=== PATIENT | female | born 1950 | race Caucasian/White ===

== ENCOUNTER 2022-08-03 12:09 | Outpatient (REF) | payer MEDICARE, OTHER, SELFPAY ==
[2022-08-03 13:51] LABS: MANUAL DIFF FLAG NO
[2022-08-03 14:13] LABS: Basophils Percent Auto 0.5 % (0-2); Eosinophils Absolute Auto 0.3 X10*3/uL (0.0-0.4); Eosinophils Percent Auto 5.1 % (0-4); Hematocrit 41.2 % (37.0-47.0); Hemoglobin 13.8 g/dl (12.0-16.0); Imm Gran Abs Auto 0.02 X10*3/uL (0.00-0.03); Imm Gran Pct Auto 0.3 % (0.0-0.4); Lymphocytes Absolute Auto 1.9 X10*3/uL (1.2-4.9); Lymphocytes Percent Auto 28.9 % (20-40); Mean Corpuscular HGB Conc 33.5 g/dl (31.0-35.0); Mean Corpuscular Hemoglobin 30.3 pg (27.0-33.0); Mean Corpuscular Volume 90.5 fL (80.0-98.0); Mean Platelet Volume 10.7 fL (9.4-12.3); Monocytes Absolute Auto 0.9 X10*3/uL (0.1-1.2); Monocytes Percent Auto 13.4 % (2-11); Neutrophils Absolute Auto 3.3 x10*3/uL (2.0-8.3); Neutrophils Percent Auto 51.8 % (45-73); Platelet Count 239 X10*3/uL (160-400); Red Blood Count 4.55 X10*6/uL (4.20-5.50); Red Cell Distribution Width 12.9 % (11.0-16.0); White Blood Count 6.4 X10*3/uL (4.8-10.8)
[2022-08-03 14:42] LABS: Alanine Aminotransferase 12 U/L (0-31); Albumin Level 4.1 g/dL (3.5-5.0); Alkaline Phosphatase 63 U/L (39-117); Anion Gap 15 (12-20); Aspartate Amino Transferase 22 U/L (5-31); Bilirubin Total 0.6 mg/dL (0.0-1.0); Blood Urea Nitrogen 11 mg/dL (9-16); Calcium 9.4 mg/dL (8.4-10.2); Carbon Dioxide 31 mmol/L (22-29); Chloride 97 mmol/L (96-108); Cholesterol 195 mg/dL; Estimated Glomerular Filt Rate > 60; Glucose Random 92 mg/dL (60-115); HDL Cholesterol 46 mg/dL; LDL Cholesterol Calculated 128 mg/dl; Potassium 3.4 mmol/L (3.3-5.1); Sodium 140 mmol/L (135-145); Total Protein 6.7 g/dL (6.5-8.0); Triglycerides 107 mg/dL
== END 2022-08-03 12:10 | disposition home or self-care (01) ==
LOC: HO.MANLDS 12:09
PROVIDERS: Visit Provider Physician Assistant
DX: I10 Essential (primary) hypertension (principal)
CPT/HCPCS: 36415; 80053; 80061; 85025

== ENCOUNTER 2025-08-28 14:37 | Outpatient (REF) | payer MEDICARE, OTHER, SELFPAY ==
--- OUTSIDE RECORDS SUMMARY | 2022-05-28 15:03 | XMS_ITS | Encounter Summary ---
Author Organization [facility] Address [address] [place] [address] Phone Care Team Providers Care Author'S Agent Name Role Phone Hector Lan DO Unavailable Orville Majano MD Unavailable [email or web address] Hector Lan DO Primary Care Provider [phone] Encounter Details Date Type Department Care Team (Late st Contact Info) Description 05/28/2022 4:03 PM EDT Hospital Encounter [facility] [address] [place] [address] Katerin Moore FNP [address] [place] [address] [email or web address] Social History Tobacco Use Types Packs/Day Years Used Date Smoking Tobacco: Every Day Cigarettes 1 60.9 Started: 1964 Smokeless Tobacco: Never Comments:1 pack per day (10/11 07/04) Alcohol Use Standard Drinks/Week Comments No 0 (1 standard drink = 0.6 oz pur e alcohol) Education Answer Date Recorded Are you interested in more education? Not on madelaine e 02/04/2023 Are you concerned about learning? Not on file 02/04/2023 No 02/04/2023 No 02/04/2023 Digital Access Answer Date Recorded No 03/07/2023 No 03/07/2023 Reliable internet access at home? Not on file 03/07/2023 Device with a working camera? Not on file Intimate Partner Violence Answer Date R ecorded Are you denied basic needs s uch as food, clothing, or medical care? No 11/07/2024 In the past 12 months have y ou been in a relationship with a person who hurts, threatens, or tries to control you? No 11/07/2024 Are you denied basic needs s uch as food, clothing, or medical care? No 11/07/2024 In the past 12 months have y ou been in a relationship with a person who hurts, threatens, or tries to control you? No 11/07/2024 Comments No Sex and Gender Information Value Date Recorded Sex Assigned at Not on file Legal Sex Female 10:02 PM EDT Gender Identity Not on file Sexual Orientation Not on file documented as of this encounter Functional Status * Calculated C-SSRS Risk Score (Lifetime/Recent) Answer Date of Assessment Author No Risk Indicated 09/20/2024 11:48 AM Nohelia Jacobsen RN * [place] Suicide Severity Rating Scale (Screener/Recent Self-Report) Question Answer Date of Assessment Author 1. Wish to be (Past 1 Month) No 024 11:48 AM Nohelia Jacobsen RN 2. Non-Specific Active Suici rama Thoughts (Past 1 Month) No 09/20/2024 11:48 AM Lola Jacobsen RN 6. Suicidal Behavior (Lifetime) No 11:48 AM Nohelia Jacobsen RN documented as of this encounter Plan of Treatment Upcoming Encounters Date Type Department Care Team (Late st Contact Info) Description 03/21/2025 Procedure Pass [facility], Ct Scan - [facility] [address] [place] [address] 10/23/2025 9:30 AM EST Office Visit [facility] [address] [place] [address] Mary Lou Pires, ACTUARY CLERK [address] [address] [email or web address] 10/29/2025 10:30 AM EST Appointment [facility], Ct Scan - [address] [address] Fredy Broosk MD [address] [place] [address] 11/05/2025 10:00 AM EST Office Visit [facility] [address] [place] [address] Fredy Brooks MD [address] [place] [address] [email or web address] documented as of this encounter Procedures Procedure Name Priority Date/Time Associated Diagnosis Comments XR HAND 3 OR MORE VIEWS (LEFT) Urgent/patient waiting 05/28/2022 4:10 PM EDT Fall, initial encounter documented in this encounter Results * XR HAND 3 OR MORE VIEWS (LEFT) (05/28/2022 4:10 PM EDT) Anatomical Region Laterality Modality Hand Left Computed Radiogr aphy 05/28/2022 4:22 PM EDT Impressions 05/28/2022 4:26 PM EDT There are mildly displaced fractures of fourth and fifth metacarpal bases with likely intra articular extension. The carpal alignment is maintained. The distal radius and ulna are intact. Narrative 05/28/2022 4:26 PM EDT XR HAND 3 OR MORE VIEWS (LEFT) COMPARISON: None Procedure Note Pamela Conn MD - 05/28/2022 XR HAND 3 OR MORE VIEWS (LEFT) COMPARISON: None IMPRESSION: There are mildly displaced fractures of fourth and fifth metacarpal baseswith likely intra articular extension. The carpal alignment is maintained.The distal radius and ulna are intact. Katerin Moore RN CRITICAL CARE IMG XR UPPER EXTREMITY Lenore l Result documented in this encounter Visit Diagnoses Not on filedocumented in this encounter Care Teams Author'S Agent Relationship Specialty Start Date End Date Hector Lan DO PCP - General Internal Medicine 09/07/17 Hector Lan DO Historical LMR Provider 07/25/17 Orville Majano MD [email or web address] Historical LMR Provider 07/25/17 documented as of this encounter Additional Source Comments The information contained in this document represents components of the legal health record. It is not the complete legal health record.[facility]
--- OUTSIDE RECORDS SUMMARY | 2023-02-21 10:35 | XMS_ITS | Encounter Summary ---
Author Organization [facility] Address [address] [place] [address] Phone Care Team Providers Care After School Program Director Name Role Phone Hector Lan DO Unavailable Orville Majano MD Unavailable [email or web address] Hector Lan DO Primary Care Provider [phone] Encounter Details Date Type Department Care Team (Late st Contact Info) Description 02/21/2023 11:35 AM EDT Hospital Encounter [facility] [address] [place] [address] Morelia Le CNP [address] [place] [address] [email or web address] Social History Tobacco Use Types Packs/Day Years [...] 09/20/2024 11:48 AM Nohelia Jacobsen RN * [place] Suicide Severity Rating Scale (Screener/Recent Self-Report) Question [...] st Contact Info) Description 03/21/2025 Procedure Pass [facility], Ct Scan - [facility] [address] [place] [address] 10/23/2025 9:30 AM EST Office Visit [facility] [address] [place] [address] Mary Lou Pires, PROTEIN PURIFICATION SCIENTIST [address] [place] [address] [email or web address] 10/29/2025 10:30 AM EST Appointment [facility], Ct Scan - [facility] [address] [place] [address] Fredy Brooks MD [address] [place] [address] 11/05/2025 10:00 AM EST Office Visit [facility] [address] [place] [address] Fredy Brooks MD [address] [place] [address] documented as of this encounter Procedures Procedure Name Priority Date/Time Associated Diagnosis Comments XR CHEST PA AND LATERAL 2 VIEWS Urgent/patient waiting 02/21/2023 12:03 PM EDT Shortness of breath documented in this encounter Results * XR CHEST PA AND LATERAL 2 VIEWS (02/21/2023 12:03 PM EDT) Anatomical Region Laterality Modality Chest Computed Radiogr aphy 02/21/2023 12:0 6 PM EDT Impressions 02/21/2023 12:08 PM EDT No acute abnormality. Narrative 02/21/2023 12:08 PM EDT XR CHEST PA AND LATERAL 2 VIEWS Reason for exam (per EHR order): Dyspnea (Shortness of Breath); rales RLL, h/o COPD- minimal peripheral edema TECHNIQUE: Frontal and lateral radiographs of the chest. COMPARISON: February 2020. FINDINGS: Support Devices / Implants / Lines and Tubes: None. Lungs and Pleura: No focal consolidation, pulmonary edema, pleural effusion or pneumothorax. Cardiomediastinal Silhouette: Normal. Miscellaneous Findings: Degenerative changes of the thoracic spine. Procedure Note Bogdan Eason MBBS - 02/21/2023 XR CHEST PA AND LATERAL 2 VIEWS Reason for exam (per EHR order): Dyspnea (Shortness of Breath); rales RLL,h/o COPD- minimal peripheral edema TECHNIQUE: Frontal and lateral radiographs of the chest. COMPARISON: February 2020. FINDINGS: Support Devices / Implants / Lines and Tubes: None. Lungs and Pleura: No focal consolidation, pulmonary edema, pleuraleffusion or pneumothorax. Cardiomediastinal Silhouette: Normal. Miscellaneous Findings: Degenerative changes of the thoracic spine. IMPRESSION: No acute abnormality. Morelia Le PROTEIN PURIFICATION SCIENTIST IMG XR CHEST Final Resul t documented in this encounter Visit Diagnoses Not on filedocumented in this encounter Care Teams After School Program Director Relationship Specialty Start Date End Date Hector Lan DO PCP - General Internal Medicine 09/07/17 Hector Lan DO Historical LMR Provider 07/25/17 Orville Majano MD [email or web address] Historical LMR Provider 07/25/17 documented as of this encounter Additional Source Comments The information contained in this document represents components of the legal health record. It is not the complete legal health record.[facility]
[2025-08-28 18:09] LABS: MANUAL DIFF FLAG NO
[2025-08-28 18:20] LABS: Hematocrit 43.6 % (37.0-47.0); Hemoglobin 14.2 g/dl (12.0-16.0); Imm Gran Abs Auto 0.21 X10*3/uL (0.00-0.03); Imm Gran Pct Auto 1.4 % (0.0-0.4); Lymphocytes Absolute Auto 1.1 X10*3/uL (1.2-4.9); Mean Corpuscular HGB Conc 32.6 g/dl (31.0-35.0); Mean Corpuscular Hemoglobin 30.6 pg (27.0-33.0); Mean Corpuscular Volume 94.0 fL (80.0-98.0); NRBC Abs Auto 0.000 X10*3/uL (0.0-0.012); NRBC Pct Auto 0.0 /100WBC (0.0-0.2); Platelet Count 240 X10*3/uL (160-400); Red Blood Count 4.64 X10*6/uL (4.20-5.50); White Blood Count 14.8 X10*3/uL (4.8-10.8)
--- OUTSIDE RECORDS SUMMARY | 2025-08-29 03:04 | XMS_ITS | Encounter Summary ---
Author Organization [facility] Address [facility] [address] [place] [address] Phone Care Team Providers Care Marketing Recruiter Name Role Phone Hector Lan DO Unavailable Orville Majano MD Unavailable [email or web address] Mary Carmen Haji MOBILE HOME SET UP PERSON Unavailable [phone] Ivet Boothe MOBILE HOME SET UP PERSON Unavailable [phone] Karen Mendoza MOBILE HOME SET UP PERSON Unavailable [phone] Hector Lan DO Primary Care Provider [phone] Encounter Details Date Type Department Care Team (Late st Contact Info) Description 10/09/2019 Procedure Pass [address] [address] Social History Tobacco Use Types Packs/Day Years Used Date Smoking Tobacco: Every Day Cigarettes 0.3 45 Smokeless Tobacco: Never Comments:About 1/3 pack per day Alcohol Use Standard Drinks/Week Comments No 0 (1 standard drink = 0.6 oz pur e alcohol) Comments No Sex and Gender Information Value Date Recorded Sex Assigned at Not on file Legal Sex Female 10:02 PM EDT Gender Identity Not on file Sexual Orientation Not on file documented as of this encounter Plan of Treatment Upcoming Encounters Date Type Department Care Team (Late st Contact Info) Description 03/21/2025 Procedure Pass [facility], Ct Scan - [address] [address] 10/23/2025 9:30 AM EST Office Visit [facility] [address] [place] [address] Mary Lou Pires, HOOK UP [address] [address] [email or web address] 10/29/2025 10:30 AM EST Appointment [facility], Ct Scan - [address] [address] Fredy Brooks MD [address] [place] [address] 11/05/2025 10:00 AM EST Office Visit [facility] [address] [place] [address] Fredy Brooks MD [address] [place] [phone] documented as of this encounter Visit Diagnoses Not on filedocumented in this encounter Care Teams Marketing Recruiter Relationship Specialty Start Date End Date Hector Lan DO PCP - General Internal Medicine 09/07/17 Hector Lan DO Historical LMR Provider 07/25/17 Orville Majano MD [email or web address] Historical LMR Provider 07/25/17 Mary Carmen Haji, MOBILE HOME SET UP PERSON [address] [place] [address] [place] [address] [email or web address] Historical LMR Provider 07/25/17 2 Ivet Boothe NP [address] [place] [address] [email or web address] Historical LMR Provider 07/25/17 2 Karen Mendoza NP [address] [place] [address] Historical LMR Provider 07/25/17 2 documented as of this encounter Additional Source Comments The information contained in this document represents components of the legal health record. It is not the complete legal health record.[facility]
--- OUTSIDE RECORDS SUMMARY | 2025-08-29 03:04 | XMS_ITS | Continuity of Care Document ---
Author Organization [facility], [facility] Address [address] [place] [address] Assessment No assessment recorded. Plan of Treatment Reminders Order Date Submit Date Provider Last Modified By Organization Details Last Modified Time Details Appointments FOLLOW UP 15 2024 11:15A M LEANDRA ELLISON Not available Not available Not available Lab CBC w/ auto diff 2024 [facility], [address] [place] [address], [id number], 08/28/2025 14:31:52 Referral None recorded. Procedures None recorded. Surgeries None recorded. Imaging None recorded. Medication Orders prednison e 20 mg tablet 2024 [id number], [address] [place], [place], [phone], 08/28/2025 14:20:45 prednison e 10 mg tablet 2024 [facility][id number], [address], [place], [id number], 08/28/2025 14:20:49 amoxicill in 875 mg-potass ium clavulana te 125 mg tablet 2024 [facility] #[id number], [address] [place], [address], 08/28/2025 14:15:35 Patient TargetsNo targets recorded. Patient InstructionsNo instructions recorded. Reason for Referral None Reported. Results Created Date Observation Date Name Description Value Unit Range Abnormal Flag Note LastModifiedBy Organization Detail LastModifiedTime Result Notes None recorded. 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 Not Available [facility] 3 09:29:37 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 Not Available [facility] 3 09:29:37 Gastroes ophageal reflux disease 072625493 Active 2017 Not Available [facility] 3 09:29:37 [facility] hyperten dipika 73526644 Active 2017 Not Available [facility] 3 09:29:37 Chronic obstruct minerva pulmonar y disease 77363840 Active 2017 Not Available [facility] 3 09:29:37 Rupture of rotator cuff of right shoulder 39205116627 301267 Active 2017 Not Available [facility] 3 09:29:36 Generali zed anxiety disorder 20320193 Active 2017 Not Available [facility] 3 09:29:37 Insomnia 412687545 Active 2017 Not Available [facility] 3 09:29:37 Tobacco dependen ce syndrome 14616658 Active 2020 Not Available [facility] 3 09:29:37 Coronary atherosc lerosis 802354483 Active 2020 Not Available [facility] 3 09:29:37 Angular cheiliti s 995139627 Active 2021 Not Available [facility] 3 09:29:37 Edema of lower extremit y 993931930 Active 2021 Not Available [facility] 3 09:29:36 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 3 09:29:37 Candidia sis of mouth 99687103 Active 2022 LEANDRA ELLISON [address] [place], [address], [facility] 5 15:03:38 Infectio n of tooth 824163766 Active 2022 Not Available [facility] 3 09:29:37 Pneumoni a 886230430 Active 2022 Not Available [facility] 3 09:29:37 Pain in bilatera l feet 86720524412 228605 Active 2023 LEANDRA ELLISON [address] [place], [address], [facility] 4 11:58:11 Acute bronchit is 45157237 Active 2023 LEANDRA ELLISON [address] [place], [address], [facility] 5 16:29:24 Fever 191284610 Active 2023 LEANDRA ELLISON [address] [place], [address], [facility] 4 11:10:36 Wheezing 38662444 Active 2023 LEANDRA ELLISON [address] [place], [address], [facility] 4 11:10:45 Atypical chest pain 754154357 Active 2023 LEANDRA ELLISON [address] [place], [address], [facility] 4 15:02:57 COVID-19 492289356 Active 2023 LEANDRA ELLISON [address] [place], [address], [facility] 4 11:24:13 Migraine 47115144 Active 2024 LEANDRA ELLISON [address] [place], [address], [facility] 5 12:34:47 Mixed simple and mucopuru lent chronic bronchit is 896800669 Active 2024 LEANDRA ELLISON [address] [place], [address], [facility] 5 11:25:14 Acute infectiv e bronchit is 778662690 Active 2024 LEANDRA ELLISON [address] [place], [address], [facility] 5 16:48:05 Muscle spasm of cervical muscle of neck 96292774163 4 Active 2024 LEANDRA ELLISON [address] [place] [address], [address], [facility] 5 16:33:43 Problem Notes None recorded. Procedures Surgical History Date Name Laterality Status Provider Name and Address Organization Details Recorded Time 10/04/19 50 Most Recent Mammogram completed [facility] 04/09/2019 12:06:55 Total Hysterectomy completed [facility] 04/09/2019 12:09:04 Appendectomy completed [facility] 04/09/2019 12:09:27 Imaging Results None recorded. Procedure Notes None recorded. Medical Equipment None Reported. Allergies Allergen ID Allergen Name Allergen Category Reaction Reaction Severity Criticality Documentation Date Start Date Code Code System Note Provider Name and Address Organization Details Recorded Time 7775 Levaquin medicatio n other Not available Not available 08/15/2018 02871 2 RxNorm possi ble tendi nopat hy, avoid if possi ble January Dale, [facility] [address] [place], [address], [facility] 8 16:02:56 2496 Medrol medicatio n edema Not available Not available 08/15/2018 2 RxNorm quest ionab le corre latio n, avoid if possi ble Radha Dale, [facility] [address] [place], [address], [facility] 8 16:02:48 9791 albuterol medicatio n Not available Not available low 08/28/20252024 435 RxNorm Not Available [address] [employer] - prod 5 03:44:09 9792 varenicli ne Not available Not available Not available Not available 08/28/20252023 84258 2 RxNorm night justin Not Available [address] [employer] - prod 5 03:44:[address] medicatio n Not available Not available Not available 08/28/20252024 35149 36 RxNorm Not Available [address] [employer] - prod 5 03:44:09 9794 levofloxa maik medicatio n other Not available Not available 08/28/20252024 57262 RxNorm Other react ion(s ): Other Levaq uin Not Available [address] [employer] - prod 5 03:44:09 9795 methylpre dnisolone medicatio n other Not available Not available 08/28/20252024 6902 RxNorm Other react ion(s ): Edema Medro l Not Available [address] [employer] - prod 5 03:44:09 Medications Name Sig Start Date Stop Date Status Note LastModified by Organization Details LastModified Time amoxicill in 500 mg capsule TAKE 1 CAPSULE BY MOUTH EVERY 8 HOURS FOR 7 DAYS 08/03 completed Not Available Not Available Not Available furosemid e 40 mg tablet TAKE 1 TABLET BY MOUTH EVERY DAY 04/01 completed Not Available Not Available Not Available clotrimaz ole 10 mg diamond 08/01 completed Not Available Not Available Not Available nystatin 100,000 unit/mL oral suspensio n SHAKE LIQUID AND TAKE 5 ML BY MOUTH FOUR TIMES DAILY FOR 10 DAYS DIRECTED active Not Available Not Available No t Available prednison e 10 mg tablet TAKE 1 TABLETS BY MOUTH EVERY DAY FOR 20 DAYS DIRECTED 2024 active Not Available Not Available Not Avai lable clindamyc in HCl 300 mg capsule TAKE 1 CAPSULE BY MOUTH EVERY 6 HOURS FOR 7 DAYS 08/03 completed Not Available Not Available Not Available citalopra m 40 mg tablet TAKE 1 TABLET BY MOUTH EVERY DAY active Not Available Not Available No t Available azithromy maik 250 mg tablet TAKE 2 TABLETS (500 MG) BY ORAL ROUTE ONCE DAILY FOR 1 DAY THEN 1 TABLET (250 MG) BY ORAL ROUTE ONCE DAILY FOR 4 DAYS 08/03 completed Not Available Not Available Not Available levalbute rol 0.63 mg/3 mL solution for nebulizat ion TAKE 3 ML BY NEBULIZA TION 2 TIMES A DAY WITH HYPERSAL NEBS active Not Available Not Available No t Available fluconazo le 150 mg tablet TAKE 1 TABLET BY MOUTH EVERY DAY DIRECTED FOR 7 DAYS. 08/03 completed Not Available Not Available Not Available benzonata te 200 mg capsule TAKE 1 CAPSULE BY MOUTH THREE TIMES DAILY FOR 7 DAYS NEEDED FOR COUGH 08/03 completed Not Available Not Available Not Available hydrochlo rothiazid e 50 mg tablet TAKE 1 TABLET BY MOUTH EVERY DAY active Not Available Not Available No t Available prednison e 20 mg tablet TAKE 1 TABLET BY MOUTH BID FOR 14 DAYSTAKE 1 TABLET BY MOUTH PO QD 14 DAYS 2024 active Not Available Not Available Not Avai lable alendrona te 70 mg tablet TAKE 1 TABLET BY MOUTH ONCE WEEKLY ON AN EMPTY STOMACH WITH A FULL GLASS OF WATER. REMAIN UPRIGHT AND NOTHING BY MOUTH FOR 30 MINUTES AFTER active Not Available Not Available No t Available prednison e 5 mg tablet TAKE 1 TABLET BY MOUTH EVERY DAY FOR 20 DAYS active Not Available Not Available No t Available hydrocodo ne 10 mg-acetam inophen 325 mg tablet TAKE 1 TABLET BY MOUTH FOUR TIMES DAILY NEEDED FOR PAIN 03/05 completed Not Available Not Available Not Available bupropion HCl SR 100 mg tablet,12 hr sustained -release active Not Available Not Available Not Available amoxicill in 500 mg tablet TAKE 4 TABS BY MOUTH 1HR PRIOR TO INJECTIO N active Not Available Not Available No t Available terbinafi ne HCl 250 mg tablet Take 1 tablet every day by oral route for 28 days. 09/12 completed Not Available Not Available Not Available amoxicill in 875 mg tablet TAKE 1 TABLET BY MOUTH EVERY 12 HOURS FOR 7 DAYS 03/05 completed Not Available Not Available Not Available lorazepam 0.5 mg tablet TAKE 1 TABLET BY MOUTH EVERY DAY AT BEDTIME 07/12 completed Not Available Not Available Not Available furosemid e 80 mg tablet TAKE 1 TABLET BY MOUTH EVERY DAY 12/30 completed Not Available Not Available Not Available amitripty line 10 mg tablet TAKE 1 TABLET BY MOUTH EVERY DAY DIRECTED active Not Available Not Available No t Available doxycycli ne monohydra te 100 mg capsule 07/12 completed Not Available Not Available Not Available hydrocodo ne 7.5 mg-acetam inophen 325 mg tablet Take 1 tablet every 4-6 hours by oral route for 28 days. 2024 active The patient is UTD Not Available Not Available Not Available econazole nitrate 1 % topical cream APPLY TO AFFECTED TOES/WEB SPACES TWICE DAILY UNTIL RESOLVED . REPEAT NEEDED FOR RECURREN CE. active Not Available Not Available No t Available prednison e 2.5 mg tablet TAKE 1 TABLET BY MOUTH EVERY DAY 05/18 completed Not Available Not Available Not Available cephalexi n 500 mg capsule Take 1 capsule every 6 hours by oral route for 7 days. 02/04 completed Not Available Not Available Not Available erythromy maik 5 mg/gram (0.5 %) eye ointment APPLY 1 CM RIBBON INTO THE LOWER CONJUNCT IVAL SAC(S) IN THE AFFECTED EYE(S) BY OPHTHALM IC ROUTE 3 TIMES PER DAY 08/01 completed Not Available Not Available Not Available Advair Diskus 250 mcg-50 mcg/dose powder for inhalatio n Inhale 1 puff twice a day by inhalati on route. 02/17 completed Not Available Not Available Not Available gabapenti n 300 mg capsule TAKE 1 CAPSULE BY MOUTH TWICE A DAY active Not Available Not Available No t Available omeprazol e 20 mg capsule,d elayed release TAKE 1 CAPSULE BY MOUTH EVERY DAY 30 MINUTES BEFORE MORNING MEAL active Not Available Not Available No t Available mupirocin 2 % topical ointment 09/12 completed Not Available Not Available Not Available furosemid e 20 mg tablet TAKE 1 TABLET BY MOUTH EVERY DAY active Not Available Not Available No t Available gabapenti n 100 mg capsule TAKE 1 CAPSULE BY MOUTH IN THE MORNING AND 2 CAPSULES BY MOUTH AT NIGHT 03/05 completed Not Available Not Available Not Available clobetaso l 0.05 % topical ointment 02/17 completed Not Available Not Available Not Available lorazepam 1 mg tablet TAKE 1 TABLET BY MOUTH EVERY DAY AT BEDTIME FOR 30 DAYS active Not Available Not Available No t Available triamcino lone acetonide 0.1 % lotion APPLY THIN LAYER TO AREA OF PSORIASI S TWICE DAILY FOR 2 WEEKS AT A TIME AVOID FACE AND GENITALS . active Not Available Not Available No t Available levofloxa maik 500 mg tablet Take 1 tablet every 24 hours by oral route for 7 days. 08/15 completed Not Available Not Available Not Available methylpre dnisolone 4 mg tablets in a dose pack Alt: 24 mg PO on day 1, then decr. by 4 mg/day x5 days per dose pack instruct ions 08/15 completed Not Available Not Available Not Available albuterol sulfate HFA 90 mcg/actua tion aerosol inhaler 03/05 completed Not Available Not Available Not Available ondansetr on 4 mg disintegr ating tablet 08/12 completed Not Available Not Available Not Available clotrimaz ole 1 % topical cream APPLY TOPICALL Y TO THE AFFECTED AND SURROUND ING AREAS TWICE DAILY IN THE MORNING AND IN THE EVENING active Not Available Not Available No t Available doxycycli ne hyclate 100 mg tablet TAKE 1 TABLET BY MOUTH TWICE A DAY FOR 10 DAYS active Not Available Not Available No t Available naproxen 500 mg tablet Take 1 tablet twice a day by oral route. 12/23 completed Not Available Not Available Not Available amoxicill in 875 mg-potass ium clavulana te 125 mg tablet Take 1 tablet every 12 hours by oral route as directed for 5 days. 2024 active Not Available Not Available Not Avai lable oxycodone 5 mg tablet TAKE 1 TABLET (5 MG TOTAL) BY MOUTH 2 (TWO) TIMES A DAY NEEDED FOR MODERATE PAIN. 12/23 completed Not Available Not Available Not Available nicotine (polacril ex) 2 mg buccal lozenge 12/23 completed Not Available Not Available Not Available hydrocodo ne 10 mg-acetam inophen 300 mg tablet TAKE 1 TABLET BY MOUTH FOUR TIMES DAILY NEEDED FOR PAIN 03/13 completed Not Available Not Available Not Available Enbrel 50 mg/mL (1 mL) subcutane ous syringe 08/01 completed Not Available Not Available Not Available bromfenac 0.09 % eye drops INSTILL 1 DROP EVERY DAY TO LEFT EYE 08/12 completed Not Available Not Available Not Available chlorhexi dine gluconate 0.12 % mouthwash SWISH 20 ML FOR 30 SECONDS THEN SPIT TWICE DAILY IN THE MORNING AND EVENING AFTER BRUSHING TEETH AND MEALS. NOTHING BY MOUTH FOR 30 MINUTES AFTER 08/12 completed Not Available Not Available Not Available famotidin e take 20 mg once a day active otc Not Available Not Available No t Available fiber active Not Available Not Availa ble Not Available Vitamin D3 active Not Available Not Available Not Available Multivita min 50 Plus active Not Available Not Available Not Available calcipotr iene-beta methasone 0.005 %-0.064 % topical ointment 09/12 completed Not Available Not Available Not Available hydrocodo ne 7.5 mg-acetam inophen 300 mg tablet Take 1 tablet every 4-6 hours by oral route as directed for 28 days. 03/15 completed Not Available Not Available Not Available Enbrel SureClick 50 mg/mL (1 mL) subcutane ous pen injector active Not Available Not Available Not Available sodium chloride 7 % for nebulizat ion TAKE 4 ML BY NEBULIZA TION 2 TIMES A DAY active Not Available Not Available No t Available Stelara 03/12 completed dermatol ogist Not Available Not Available Not Available roflumila st 500 mcg tablet 03/13 completed Not Available Not Available Not Available Chantix Starting Month Box 0.5 mg (11)-1 mg (42) tablets in dose pack 02/04 completed Not Available Not Available Not Available Breo Ellipta 100 mcg-25 mcg/dose powder for inhalatio n 1 puff qd 04/10 completed Not Available Not Available Not Available Anoro Ellipta 62.5 mcg-25 mcg/actua tion powder for inhalatio n INHALE 1 PUFF BY MOUTH EVERY DAY 08/12 completed Not Available Not Available Not Available Cosentyx Pen 150 mg/mL subcutane ous pen injector 08/01 completed Not Available Not Available Not Available nicotine (polacril ex) 2 mg buccal mini lozenge active Not Available Not Available Not Available Trelegy Ellipta 100 mcg-62.5 mcg-25 mcg powder for inhalatio n INHALE 1 PUFF INTO THE LUNGS DAILY 08/03 completed Not Available Not Available Not Available roflumila st 250 mcg tablet 03/13 completed Not Available Not Available Not Available baclofen 5 mg tablet TAKE 1 TABLET BY MOUTH ONCE DAILY TO RELIEVE MUSCLE SPASM active Not Available Not Available No t Available Breztri Aerospher e 160 mcg-9mcg- 4.8mcg/ac tuation HFA aerosol inhaler INHALE 2 PUFFS INTO THE LUNGS TWICE DAILY active Not Available Not Available No t Available Paxlovid 300 mg (150 mg x 2)-100 mg tablets in a dose pack Take 1 dose pk by oral route. 2023 active Not Available Not Available Not Avai lable Vitals Date Recorded Body height Body mass index (BMI) Body weight Oxygen saturation Oxygen saturation in Arterial blood by Pulse oximetry Heart rate Systolic And Diastolic Provider Name and Address Organization Details Last Updated DateTime 5 157.48 cm 29.1 kg/m2 52444.1 9 g 98 % 98 % 78 /min 118/74 mm[Hg] ESTHER Medina [facility] 5 13:54:40 Social History Question Answer Notes LastModified by Organizat ion Details LastModified Time Tobacco Smoking Status Current Every Day Smoker Not Available [facility] 08/12/2020 03:36:24 What Was The Date Of Your Most Recent Tobacco Screening? 08/12/2025 Information not available 08/12/2025 How Much Tobacco Do You Smoke? 0.25 PPD Information not available 08/12/2025 Sex: Unknown Functional Status Question Answer Note LastModified by Organization D etails LastModified Time Do you or have you ever used any other forms of tobacco or nicotine? No [email or web address] Information not available 03/18/2023 Mental Status None recorded. Family History Nothing Reported. Medical History No medical history recorded. Gynecological History Statement/Question Response Most Recent Mammogram 1950 Obstetrics History GPAL:G 0 P 0 0 0 0 Immunizations Vaccine Type Date Status Note Provider Nam e and Address Organization Details Recorded Time influenza, unspecified formulation 09/20/2023 completed Sudha Huang [facility] 09/23/2023 08:21:34 COVID-19 vaccine, vector-nr, rS-ChAdOx1, PF, 0.5 mL 12/11/2020 completed Esther Dominguez [facility] 12/30/2020 13:40:13 Past Encounters Encounter ID Performer Location Encounter Start Date Encounter Closed Date Diagnosis/Indication Diagnosis SNOMED-CT Code Diagnosis ICD10 Code Diagnosis IMO Codes [facility] [id number] [facility] [address], [place] [address] 08/12/2025 15:37:56 08/12/2025 17:22:59 Depression screening 761699750 Z13.31 SCREENING NEGATIVE Acute bronchitis 4466690 2 J20.9 28908346 will set up with alt abx Muscle spa sm of cervical muscle of neck 7184580925 04 M62.229 8779840 take two baclofen for the next 7 days [id number] Hector Lan [facility] [address], [place] [address] 08/28/2025 13:46:43 08/28/2025 14:30:49 Depression screening 834193038 Z13.31 SCREENING NEGATIVE Acute bronchitis 6732770 2 J20.9 will set up with alt abx Psoriatic arthritis 1563 67123 L40.50 discussed new medication , adjusting pain medication Health Concerns Section Related Observation LastModified by Organization Detai ls LastModified Time None Recorded Concern Status LastModified by Organization Details LastModified Time None Recorded Payers Encounter Date Sequence Insurance Name Policy Number Policy Stewart Covered Member ID Stewart Member ID Guarantor Name 08/28/2025 2 [facility] F (MEDICARE SUPPLEMENT) [id number] Ramon Menendez [id number] Annie Menendez 08/28/2025 1 [place] [employer] [employer] [place] Annie Rodríguez Shon [id number] Annie Rodríguez Shon Notes Date Note Type Note Provider Name a nd Address Organization Details Recorded Time 5 text/html ROS as noted in the HPI 2 week f/u the patient is doing okayfeeling better slowly will extend course x 5 days the swelling she developed improved use of compression stockings and elevationadjusted dose of the prednisone, continue 40 mg x 1-2 weeks, then drop to 30 mg x 1-2 weeks, then 20 mg to 10 mg based on response patient will f/u with update next week about her symptomsno XR indicated at this time LEANDRA ELLISON [address] [place] [address], [place], [address], [facility] 08/28/2025 14:30:47 OBGyn Episode No OBEpisode recorded.
--- OUTSIDE RECORDS SUMMARY | 2025-08-29 03:04 | XMS_ITS | Encounter Summary ---
Author Organization [facility] Address [address] [facility] [address] [place] [address] Phone Care Team Providers Care Train Operations Manager Name Role Phone Hector Lan DO Unavailable Orville Majano MD Unavailable [email or web address] Mary Carmen Haji RECREATION ATTENDANT Unavailable [phone] Ivet Boothe RECREATION ATTENDANT Unavailable [phone] Karen Mendoza RECREATION ATTENDANT Unavailable [phone] Hector Lan DO Primary Care Provider [phone] Encounter Details Date Type Department Care Team (Latest Contact Info) Description 01/18/2018 Transcribe Orders [facility] [address] [place] [address] Hector Martinez MD [address] [place] [address] Fibrohistiocytic proliferation of the skin (Primary Dx) Social History Tobacco Use Types Packs/Day Years Used Date Smoking Tobacco: Every Day Cigarettes 0.3 45 Smokeless Tobacco: Never Comments:About 1/3 pack per day Alcohol Use Standard Drinks/Week Comments No 0 (1 standard drink = 0.6 oz pur e alcohol) Comments Unknown Sex and Gender Information Value Date Recorded Sex Assigned at Not on file Legal Sex Female 10:02 PM EDT Gender Identity Not on file Sexual Orientation Not on file documented as of this encounter Plan of Treatment Upcoming Encounters Date Type Department Care Team (Late st Contact Info) Description 03/21/2025 Procedure Pass [facility], Ct Scan - [address] [address] 10/23/2025 9:30 AM EST Office Visit [facility] Gastroenterology Clinic 10 [place] [address] Mary Lou Pires, GLASS MELT OPERATOR [address] [address] [email or web address] 10/29/2025 10:30 AM EST Appointment [facility], Ct Scan [address] [address] Fredy Brooks MD [address] [place] [address] 11/05/2025 10:00 AM EST Office Visit [facility] Pulmonary, Allergy and Critical Care Medicine 10 [place] [address] Fredy Brooks MD [address] [place] [address] documented as of this encounter Results * (ABNORMAL) Urine sediment (01/18/2018 10:51 AM EDT) WBC 0-4(A) NONE SEEN /hpf [facility] RBC 0-2(A) NONE SEEN /hpf [facility] URINE EPITHELIAL 0-4(A) NONE SEEN [facility] MUCUS NONE SEEN NONE SEEN /hpf [facility] BACTERIA Trace(A) NONE SEEN [facility] Urine (Urine) 01/18/2018 10: 51 AM EDT 01/18/2018 10:53 AM EDT us Hector Martinez MD LAB URINE ORDERABLES Fin al Result [facility] [address] [place] [address] * (ABNORMAL) CBC and differential (01/18/2018 10:51 AM EDT) WBC 7.80 3.40 - 11.20 K/uL [facility] RBC 4.66 3.80 - 4.80 M/uL [facility] HGB 13.8 12.0 - 15.0 g/dL [facility] HCT 41.9 36.0 - 46.0 % [facility] PLT 294 130 - 400 K/uL [facility] MCV 89.9 79.0 - 98.0 fL [facility] MCH 29.6 27.0 - 34.8 pg [facility] MCHC 32.9 31.5 - 36.0 g/dL [facility] RDW 14.2 10.8 - 14.6 % [facility] MPV 9.8 9.4 - 12.4 fl [facility] NRBC 0.00 /100 WBCs [facility] ABSOLUTE NRBC 0.00 K/uL [facility] DIFF METHOD Auto [facility] NEUTS 67.9 45.30 - 77.70 % [facility] LYMPHS 20.9 12.30 - 39.70 % [facility] MONOS 7.8 4.10 - 12.80 % [facility] EOS 2.1 0 - 7.2 % [facility] BASOS 0.8 0 - 2.80 % [facility] Granulocytes, immature (%) 0.5 0.0 - 0.9 % [facility] ABSOLUTE NEUTS 5.30 1.40 - 7.70 K/uL [facility] ABSOLUTE LYMPHS 1.63 0.60 - 3.20 K/uL [facility] ABSOLUTE MONOS 0.61(H) 0.11 - 0.59 K/uL [facility] ABSOLUTE EOS 0.16 0.01 - 0.50 K/uL [facility] ABSOLUTE BASOS 0.06 0.00 - 0.08 K/uL [facility] Granulocytes, immature 0.04 0.00 - 0.05 K/uL [facility] Blood 01/18/2018 10:5 1 AM EDT 01/18/2018 10:54 AM EDT us Hector Martinez MD LAB BLOOD BKR ORDERABLES Final Result Performing Organization Address [facility]/ZIP Co de Phone Number [address] [address] * Renal panel (01/18/2018 10:51 AM EDT) SODIUM 142 133 - 146 mmol/L [facility] POTASSIUM 4.4 3.3 - 5.1 mmol/L [facility] CHLORIDE 100 96 - 108 mmol/L [facility] CO2 31 21 - 35 mmol/L [facility] GLUCOSE 90 70 - 99 mg/dL [facility] BUN 14 6 - 19 mg/dL [facility] CREATININE 0.90 0.5 - 1.5 mg/dL [facility] CALCIUM 10.1 8.4 - 10.3 mg/dL [facility] PHOSPHORUS 3.1 2.7 - 4.5 mg/dL [facility] ALBUMIN 4.7 3.9 - 4.8 g/dL [facility] EGFR 66 >59 mL/min/1.7 3m2 [facility] Comment:If patient is black, multiply result by 1.159. The eGFR calculation has changed from the MDRD equation to the CKD-EPI equation as of December 13, 2017. ANION GAP 15 10 - 20 mmol/L [facility] Blood 01/18/2018 10:5 1 AM EDT 01/18/2018 10:54 AM EDT us Hector Martinez MD LAB BLOOD BKR ORDERABLES Final Result Performing Organization Address City/[facility]/ZIP Co de Phone Number [address] [address] documented in this encounter Visit Diagnoses Diagnosis Fibrohistiocytic proliferation of the skin- Primary Other specified disorder of skin documented in this encounter Care Teams Train Operations Manager Relationship Specialty Start Date End Date Hector Lan DO [email or web address] PCP - General Internal Medicine 09/07/17 Hector Lan DO [email or web address] Historical LMR Provider 07/25/17 Orville Majano MD [email or web address] Historical LMR Provider 07/25/17 Mary Carmen Haji NP [address] [place] [address] [email or web address] Historical LMR Provider 07/25/17 2 Ivet Boothe NP [address] [place] [address] [email or web address] Historical LMR Provider 07/25/17 2 Karen Mendoza NP [address] [place] [address] Historical LMR Provider 07/25/17 2 documented as of this encounter Additional Source Comments The information contained in this document represents components of the legal health record. It is not the complete legal health record.[facility]
--- OUTSIDE RECORDS SUMMARY | 2025-08-29 03:05 | XMS_ITS | Encounter Summary ---
Author Organization [facility] Address [address] [facility] [address] [place] [address] Phone Care Team Providers Care Grinder Carbon Plant Name Role Phone Hector Lan DO Unavailable Orville Majano MD Unavailable [email or web address] Mary Carmen Hjai BAG SORTER Unavailable [phone] Ivet Boothe BAG SORTER Unavailable [phone] Karen Mendoza BAG SORTER Unavailable [phone] Hector Lan DO Primary Care Provider [phone] Encounter Details Date Type Department Care Team (Late st Contact Info) Description 07/28/2020 Ancillary Orders Virtual Department [address] [place] [address] [facility] [address] [place] [address] [place] [address] Breast screening Social History Tobacco Use Types Packs/Day Years Used Date Smoking Tobacco: Every Day Cigarettes 0.5 60.9 Started: 1965 Smokeless Tobacco: Never Comments:About 1/3 pack per day in process of quitting Alcohol Use Standard Drinks/Week Comments No 0 [...] st Contact Info) Description 03/21/2025 Procedure Pass [facility], Ct Scan [address] [address] 10/23/2025 9:30 AM EST Office Visit [facility] Gastroenterology Clinic 10 [place] [address] Mary Lou Pires, EARLY LEARNING TEACHER 10 [facility] 2 [place] [address] [email or web address] 10/29/2025 10:30 AM EST Appointment [facility], Ct Scan [address] [address] Fredy Brooks MD [address] [place] [address] 11/05/2025 10:00 AM EST Office Visit [facility] Pulmonary, Allergy and Critical Care Medicine 10 [facility] [place] [address] Fredy Brooks MD [address] [place] [address] documented as of this encounter Results * BI MAMMOGRAM SCREENING WITH TOMOSYNTHESIS WITH CAD (BILATERAL) (10/09/2020 12:31 PM EST) Anatomical Region Laterality Modality Breast Left, Breast Right, Breast Bilateral Bila teral Mammography 10/09/2020 1:13 PM EST Impressions 10/09/2020 1:19 PM EST No mammographic signs of malignancy. Annual screening is recommended. BI-RADS CATEGORY: 1 - Negative. DENSITY: There are scattered fibroglandular densities. Narrative 10/09/2020 1:19 PM EST Bilateral mammography is performed in conjunction with computed aided detection. 3-D tomography along with 2-D C view imaging was also performed. Comparison made to previous dated as far back as 09/10/2014 and as recent as 11/22/2017. No suspicious masses, areas of architectural distortion or suspicious microcalcifications. Procedure Note Spencer Madden MD - 10/09/2020 Bilateral mammography is performed in conjunction with computed aideddetection. 3-D tomography along with 2-D C view imaging was alsoperformed. Comparison made to previous dated as far back as 09/10/2014 andas recent as 11/22/2017. No suspicious masses, areas of architectural distortion or suspiciousmicrocalcifications. IMPRESSION: No mammographic signs of malignancy. Annual screening is recommended. BI-RADS CATEGORY: 1 - Negative. DENSITY: There are scattered fibroglandular densities. [facility] PR IM MG EXAMS Final Resul t documented in this encounter Visit Diagnoses Diagnosis Breast screening Breast screening, unspecified Breast screening Breast screening, unspecified documented in this encounter Care Teams Grinder Carbon Plant Relationship Specialty Start Date End Date Hector Lan DO [email or web address] PCP - General Internal Medicine 09/07/17 Hector Lan DO Historical LMR Provider 07/25/17 Orville Majano MD [email or web address] Historical LMR Provider 07/25/17 Mary Carmen Haji NP [address] [place] [address] Historical LMR Provider 07/25/17 2 Ivet Boothe NP [address] [place] [address] [email or web address] Historical LMR Provider 07/25/17 2 Karen Mendoza NP [address] [place] [address] Historical LMR Provider 07/25/17 2 documented as of this encounter Additional Source Comments The information contained in this document represents components of the legal health record. It is not the complete legal health record.[facility]
--- OUTSIDE RECORDS SUMMARY | 2025-08-29 03:05 | XMS_ITS | Encounter Summary ---
Author Organization [facility] Address [address] [place] [address] Phone Care Team Providers Care Service Superintendent Name Role Phone Hector Lan DO Unavailable Orville Majano MD Unavailable [email or web address] Hector Lan DO Primary Care Provider [phone] Encounter Details Date Type Department Care Team (Late st Contact Info) Description 09/28/2022 Procedure Pass [facility] Echo Lab [address] [place] [address] Social History Tobacco Use Types Packs/Day Years [...] st Contact Info) Description 03/21/2025 Procedure Pass [facility], Ct Scan - [facility] [address] [place] [address] 10/23/2025 9:30 AM EST Office Visit [facility] Gastroenterology Clinic 10 [place] [address] Mary Lou Pires, LONG TERM 10 [facility] 2 [place] [address] [email or web address] 10/29/2025 10:30 AM EST Appointment [facility], Ct Scan - [address] [address] Fredy Brooks MD [address] [place] [address] 11/05/2025 10:00 AM EST Office Visit [facility], Allergy [facility] Critical Care Medicine 10 [facility] [place] [address] Fredy Brooks MD [address] [place] [address] documented as of this encounter Visit Diagnoses Not on filedocumented in this encounter Care Teams Service Superintendent Relationship Specialty Start Date End Date Hector Lan DO PCP - General Internal Medicine 09/07/17 Hector Lan DO Historical LMR Provider 07/25/17 Orville Majano MD [email or web address] Historical LMR Provider 07/25/17 documented as of this encounter Additional Source Comments The information contained in this document represents components of the legal health record. It is not the complete legal health record.[facility]
--- OUTSIDE RECORDS SUMMARY | 2025-08-29 03:05 | XMS_ITS | Encounter Summary ---
Author Organization [facility] Address [facility] [employer] [facility] [address] [place] [address] Phone Care Team Providers Care Custom Shoemaker Name Role Phone Hector Lan DO Unavailable Orville Majano MD Unavailable [email or web address] Mary Carmen Haji FIELD CREW CHIEF Unavailable [phone] Ivet Boothe FIELD CREW CHIEF Unavailable [phone] Karen Mendoza FIELD CREW CHIEF Unavailable [phone] Hector Lan DO Primary Care Provider [phone] Encounter Details Date Type Department Care Team (Late st Contact Info) Description 07/24/2018 Procedure Pass [facility], [address] [address] Social History Tobacco Use Types Packs/Day Years [...] on file documented as of this encounter Last Filed Vital Signs Vital Sign Reading Time Taken Comments Blood Pressure - - Pulse - - Temperature - - Respiratory Rate - - Oxygen Saturation - - Inhaled Oxygen Concentration - - Weight 69.4 kg (153 lb) 07/25/2018 6:36 PM EDT Height 160 cm (5' 3 ) 07/25/2018 6:36 PM EDT Body Mass Index 27.1 07/25/2018 6:36 PM EDT documented in this encounter Plan of Treatment Upcoming Encounters Date Type Department Care Team (Late st Contact Info) Description 03/21/2025 Procedure Pass [facility], Ct Scan - [address] [address] 10/23/2025 9:30 AM EST Office Visit [facility] Gastroenterology Clinic 10 [place] [address] Mary Lou Pires, SATHISH [address] [place] [address] [email or web address] 10/29/2025 10:30 AM EST Appointment [facility], Ct Scan - [address] [address] Fredy Brooks MD [address] [place] [address] 11/05/2025 10:00 AM EST Office Visit [facility] Allergy [facility] Critical [facility] 10 [place] [address] Fredy Brooks MD [address] [place] [address] documented as of this encounter Visit Diagnoses Not on filedocumented in this encounter Care Teams Custom Shoemaker Relationship Specialty Start Date End Date Hector Lan DO [email or web address] PCP - General Internal Medicine 09/07/17 Hector Lan DO [email or web address] Historical LMR Provider 07/25/17 Orville Majano MD [email or web address] Historical LMR Provider 07/25/17 Mary Carmen Haji NP [address] [place] [address] [address] [place] [address] [email or web address] Historical LMR Provider 07/25/17 2 Ivet Boothe NP [address] [place] [address] [email or web address] Historical LMR Provider 07/25/172 2 Karen Mendoza NP [address] [place] [address] Historical LMR Provider 07/25/17 2 documented as of this encounter Additional Source Comments The information contained in this document represents components of the legal health record. It is not the complete legal health record.[facility]
--- OUTSIDE RECORDS SUMMARY | 2025-08-29 03:05 | XMS_ITS | Encounter Summary ---
Author Organization [facility] Address [address] [facility] [address] [place] [address] Phone Care Team Providers Care Nurses Supervisor Name Role Phone Hector Lan DO Unavailable Orville Majano MD Unavailable [email or web address] Mary Carmen Haji DRIVER EXAMINER Unavailable [phone] Ivet Boothe DRIVER EXAMINER Unavailable [phone] Karen Mendoza DRIVER EXAMINER Unavailable [phone] Hector Lan DO Primary Care Provider [phone] Reason for Referral * MRI/CAT Scan - Closed Specialty Diagnoses / Procedures Referred By Contac t Referred To Contact Radiology Diagnoses Chest pain, unspecified type Procedures NC Myocardial Perfusion Pharmacologic Stress Multiple Hector Lan DO Phone: tel: fax: [email or web address] Referral ID Status Reason Start Date Expiration Date Visits Re quested Visits Authorized [id number] Closed 03/16/2019 03/15/2020 1 1 Encounter Details Date Type Department Care Team (Late st Contact Info) Description 03/16/2019 Transcribe Orders [facility] Department 30 [place] [address] Hector Lan DO [address] [facility] [place] [address] Chest pain, unspecified type (Primary Dx) Social History Tobacco Use Types [...] st Contact Info) Description 03/21/2025 Procedure Pass [facility], Ct Scan - [address] [address] 10/23/2025 9:30 AM EST Office Visit [facility] Gastroenterology Clinic [address] [place] [address] Mary Lou Pires, DIRECTOR MEDIA [address] [place] [address] [email or web address] 10/29/2025 10:30 AM EST Appointment [facility], Ct Scan - [address] [address] Fredy Brooks MD [address] [place] [address] 11/05/2025 10:00 AM EST Office Visit [facility] All[facility] Critical [facility] 10 [place] [address] Fredy Brooks MD [address] [place] [address] documented as of this encounter Results * NC Myocardial Perfusion Pharmacologic Stress Multiple (03/27/2019 11:46 AM EDT) Anatomical Region Laterality Modality Heart, Vascular Nuclear Medicine 03/27/2019 12:1 8 PM EDT Impressions 03/27/2019 12:21 PM EDT Normal cardiac scintigraphy. No findings of prior infarction or current ischemia are noted. The appearance is similar to prior imaging from 2013. S/S: Chest pain POS - [id number] Narrative 03/27/2019 12:21 PM EDT The patient is injected intravenously with 10.1 mCi of Tc99m labeled Cardiolite at rest and 30.5 mCi with the same agent at stress. SPECT images are obtained of both injections and are gated at stress. The patient is stressed utilizing Lexiscan. Evaluation of the left ventricular perfusion discloses a normal size left due to cavity. No fixed or reversible perfusion defects are seen. There is normal wall motion and wall thickening. The estimated left ventricular ejection fraction is greater than 70%. TID ratio 1.14. Procedure Note Hero Gross MD - 03/27/2019 The patient is injected intravenously with 10.1 mCi of Tc99m labeledCardiolite at rest and 30.5 mCi with the same agent at stress. SPECTimages are obtained of both injections and are gated at stress. Thepatient is stressed utilizing Lexiscan. Evaluation of the left ventricular perfusion discloses a normal size leftdue to cavity. No fixed or reversible perfusion defects are seen. There isnormal wall motion and wall thickening. The estimated left ventricularejection fraction is greater than 70%. TID ratio 1.14. IMPRESSION: Normal cardiac scintigraphy. No findings of prior infarction or currentischemia are noted. The appearance is similar to prior imaging [id number]. S/S: Chest pain POS - [id number] us Hector Lan DO CV NM CARDIAC Final Result documented in this encounter Visit Diagnoses Diagnosis Chest pain, unspecified type- Primary Chest pain, unspecified type documented in this encounter Care Teams Nurses Supervisor Relationship Specialty Start Date End Date Hector Lan DO [email or web address] PCP - General Internal Medicine 09/07/17 Hector Lan DO [email or web address] Historical LMR Provider 07/25/17 Orville Majano MD [email or web address] Historical LMR Provider 07/25/17 Mary Carmen Haji NP [address] [place] [address] [email or web address] Historical LMR Provider 07/25/17 2 Ivet Boothe NP [address] [place] [address] [email or web address] Historical LMR Provider 07/25/17 2 Karen Mendoza NP [address] [place] [address] Historical LMR Provider 07/25/17 2 documented as of this encounter Additional Source Comments The information contained in this document represents components of the legal health record. It is not the complete legal health record.[facility]
--- OUTSIDE RECORDS SUMMARY | 2025-08-29 03:05 | XMS_ITS | Encounter Summary ---
Author Organization [facility] Address [address] [place] [address] Phone Care Team Providers Care Sccm Administrator Name Role Phone Hector Lan DO Unavailable Orville Majano MD Unavailable [email or web address] Hector Lan DO Primary Care Provider [phone] Encounter Details Date Type Department Care Team (Late st Contact Info) Description 07/27/2023 Procedure Pass [facility] Endoscopy Admitting Dept Virtual Department 30 [place] [address] Social History Tobacco Use Types Packs/Day Years [...] as food, clothing, or medical care? No 07/27/2023 In the past 12 months have y ou been in a relationship with a person who hurts, threatens, or tries to control you? No 07/27/2023 Are you denied basic needs s uch as food, clothing, or medical care? No 07/27/2023 In the past 12 months have y ou been in a relationship with a person who hurts, threatens, or tries to control you? No 07/27/2023 Comments No Sex and Gender Information Value Date Recorded Sex Assigned at Not on file Legal Sex Female 10:02 PM EDT Gender Identity Not on file Sexual Orientation Not on file documented as of this encounter Plan of Treatment Upcoming Encounters Date Type Department Care Team (Late st Contact Info) Description 03/21/2025 Procedure Pass [facility], Ct Scan [address] [address] 10/23/2025 9:30 AM EST Office Visit [facility] Gastroenterology Clinic 10 [place] [address] Mary Lou Pires, SATHISH [address] [place] [address] [email or web address] 10/29/2025 10:30 AM EST Appointment [facility], Ct Scan [address] [address] Fredy Brooks MD [address] [place] [address] 11/05/2025 10:00 AM EST Office Visit [facility] All[facility] Critical [facility] 10 [place] [address] Fredy Brooks MD [address] [place] [address] documented as of this encounter Visit Diagnoses Not on filedocumented in this encounter Care Teams Sccm Administrator Relationship Specialty Start Date End Date Hector Lan DO [email or web address] PCP - General Internal Medicine 09/07/17 Hector Lan DO [email or web address] Historical LMR Provider 07/25/17 Orville Majano MD [email or web address] Historical LMR Provider 07/25/17 documented as of this encounter Additional Source Comments The information contained in this document represents components of the legal health record. It is not the complete legal health record.[facility]
--- OUTSIDE RECORDS SUMMARY | 2025-08-29 03:05 | XMS_ITS | Encounter Summary ---
Author Organization [facility] Address [email or web address] [place] [address] Phone Care Team Providers Care Horse Riding Coach Or Instructor Name Role Phone Hector Lan DO Unavailable Orville Majano MD Unavailable [email or web address] [email or web address] Hector Lan DO Primary Care Provider [phone] Reason for Referral * Outpatient Procedure - Closed Specialty Diagnoses / Procedures Referred By Alma silva Referred To Contact Radiology Diagnoses Other chest pain Procedures Adult Echo TTE Trinity Ponce PA [address] [facility] [place] [address] Phone: tel: fax: Referral ID Status Reason Start Date Expiration Date Visits Re quested Visits Authorized [id number] Closed 08/03/2024 08/03/2025 1 1 Encounter Details Date Type Department Care Team (Latest Contact Info) Description 08/03/2024 Transcribe Orders Virtual Department [address] [place] [address] Trinity Ponce PA 6 [facility] [place] [address] Other chest pain (Primary Dx) Social History Tobacco Use Types [...] Description 03/21/2025 Procedure Pass [facility], [address] [address] 10/23/2025 9:30 AM EST Office Visit [facility] G[facility]ology [facility] 10 [place] [address] Mary Lou Pires, SATHISH [address] [place] [address] [email or web address] 10/29/2025 10:30 AM EST Appointment [facility], Ct Scan [address] [place] [address] Fredy Brooks MD [address] [place] [address] [email or web address] 11/05/2025 10:00 AM EST Office Visit [facility] Pulmonary, Allergy and Critical Care Medicine 10 [facility] [place] [address] Fredy Brooks MD [address] [place] [address] [email or web address] documented as of this encounter Results * TTE COMPREHENSIVE (08/24/2024 12:05 PM EST) Body Surface Area 1.81 m2 Height 160 cm Weight 78 kg Systolic BP 160 mmHg Diastolic BP 80 mmHg Interventricular Septum Thickness 9 6 - 11 mm Left Ventricle Internal Diameter End Diastole 46 37 - 52 mm Left Ventricle Internal Diameter End Systole 27 <35 mm Left Ventricular Outflow Tract Diameter 21.0 mm LVOT VTI REST 295.0 mm Left Ventricular Outflow Tract Velocity 1.6 m/s Left Ventricular Outflow Tract Gradient at Rest 10 mmHg Left Ventricular Posterior Wall Thickness 8 6 - 11 mm Ejection Fraction 68 50 - 75 Percent Left Atrium Dimension Anterior-Posterior 29 15 - 40 mm Aortic Valve Mean Gradient 16 mmHg Aortic Valve Time Velocity Integral 498.0 mm Aortic Valve Peak Velocity 262.0 cm/s Aortic Valve Peak Gradient 27 mmHg Aortic Sinus Diameter 28 <40 mm Ascending Aorta Diameter 30 <36 mm Inferior Vena Cava Diameter 27 <21 mm Mitral Valve A Wave Speed 91.8 cm/s Mitral Valve E Wave Speed 64.3 cm/s Right Ventricle Basal Diameter 33 25 - 41 mm Tricuspid Valve Peak Velocity 2.9 m/s Raw LV EF% 66 % Relative Wall Thickness 0.35 0.22 - 0.42 Aortic Valve Prosthetic Peak Gradient 27 mmHg Aortic Valve Prosthetic Mean Gradient 16 mmHg Aortic Valve Sinus Index by BSA 15 mm/m2 Aorta Sinus Index by Height 1.75 cm/m Aorta Sinus CSA index by Height 3.85 cm2/m Ascending Aorta Index 17 mm/m2 Asc Aorta CSA Index by Height 4.42 cm2/m Right Ventricle to Right Atrium Pressure Gradient 34 mmHg Right Ventricle Peak Systolic Pressure (Assuming RAP 10) 44 mmHg MGB CV ECHO TV RVSP (ASSUMING RAP OF 5) 39 mmHg RVSP (Exclusive of RAP) 34 mmHg Ascending Aorta Index 17 mm Aortic Sinus Index 15 mm Ascending Aorta Diameter 17 mm Aortic Valve Sinus Index 1 15 19 - 27 mm AO ASC DIAM BSA INDEX 16.57 Right Ventricle Peak Systolic Pressure 49 mmHg Right Atrium Pressure Estimated 15 mmHg Left Atrial Volume Index 22 16 - 34 mL/m2 Left Ventricle Ea Lateral Wave Speed 6.6 cm/s Right Ventricle TAPSE 27 >=17 mm MV E/E' Tissue Velocity Lateral 9.74 Right Ventricle Pulse Doppler S Wave 12.2 >=9.5 cm/s Aortic Valve Peak Velocity 262.0 m/s Left Ventricle E Wave Speed 64.3 cm/s Left Ventricle A Wave Speed 91.8 cm/s MV E/A ratio 0.7 Left Ventricle Ea Septal Wave Speed 4.7 cm/s MV E/e' septal 13.68 Left Ventricle E/e' Average 11.7 Left Atrial Volume 39 mL Left Atrial Volume Index by Height 24 mL/m Right Atrium Area 11 cm2 Right Atrium Area index 6 cm2/m2 Echo E/Ea 13.68 Anatomical Region Laterality Modality Heart Ultrasound Narrative 08/24/2024 4:08 PM EST Images from the original result were not included. Normal LV size with dynamic LV systolic function EF 70%. Normal RV size and function. Normal diastolic function for age. Mild aortic stenosis peak velocity 2.6 m/s mean gradient 15 mmHg. Moderate pulmonary hypertension estimated at 49 mmHg. Compared to prior study from July 2023, there is an elevated velocities suggesting some mild aortic stenosis. The valve is incompletely seen is hard to know for sure if this is true mild aortic stenosis or there is a little bit of LVOT obstruction and high velocity related to the dynamic LV function. The elevated velocity is a change compared to prior study. Left Ventricle The left ventricle is normal in size. There is normal wall thickness. There is normal left ventricular systolic function. The LV ejection fraction is 68% (calculated via biplane measurement). There are no wall motion abnormalities. LV diastolic function parameters are indeterminate in total. The E/A ratio is 0.7. The e' septal wave velocity is 4.7 cm/s. The e' lateral wave velocity is 6.6 cm/s. The average E/e' ratio is 11.7. Right Ventricle The right ventricle is normal in size. The RV basal dimension is 33 mm. There is normal right ventricular systolic function. TAPSE is 27 mm. RV S' wave is 12.2 cm/s. Left Atrium The left atrium is normal in size. The left atrial volume is 39 mL. There are normal flow patterns in the pulmonary vein. Right Atrium The right atrium is normal in size. The right atrial area is 11 cm2. The IVC is dilated with normal inspiratory collapse. This is consistent with elevated RA pressure. The IVC diameter is 27 mm (normal = 21 mm). Hepatic veins are normal in size. Mitral Valve The mitral valve appears normal. There is mitral annular calcification. There is no mitral stenosis. There is trace to mild mitral regurgitation. Tricuspid Valve The tricuspid valve appears normal. There is no tricuspid stenosis. There is mild tricuspid regurgitation. The RV systolic pressure was calculated at 49 mmHg (using TR peak velocity of 2.9 m/s and assuming an RA pressure of 15 mmHg). Pulmonary pressures are moderately elevated. Aortic Valve The aortic valve is tricuspid. There is calcification of multiple leaflets. There is mild aortic stenosis. The aortic valve peak velocity is 262.0 m/s. The peak and mean aortic valve gradients are 27 mmHg and 16 mmHg respectively. There is trace to mild aortic regurgitation. The visualized portions of the thoracic aorta appear normal in size. Pulmonic Valve The pulmonic valve appears normal. Pericardium There is no pericardial effusion. There are no pleural effusions. General Findings The image quality was good (2). Technique(s) used in the evaluation: Color flow Doppler and Spectral Doppler. The predominant rhythm during the study was sinus. Comparison Findings Compared to prior study on 08/03/2023, IAS/IVS The interatrial septum appears normal. There is no evidence of patent foramen ovale (PFO). The interventricular septum appears normal. There is no evidence of a ventricular septal defect. us Trinity MOBLEY CV ECHO ORDERABLES Final Re sult documented in this encounter Visit Diagnoses Diagnosis Other chest pain- Primary Other chest pain documented in this encounter Care Teams Horse Riding Coach Or Instructor Relationship Specialty Start Date End Date Hector Lan DO [email or web address] PCP - General Internal Medicine 09/07/17 Hector Lan DO [email or web address] Historical LMR Provider 07/25/17 Orville Majano MD [email or web address] Historical LMR Provider 07/25/17 documented as of this encounter Additional Source Comments The information contained in this document represents components of the legal health record. It is not the complete legal health record.[facility]
--- OUTSIDE RECORDS SUMMARY | 2025-08-29 03:05 | XMS_ITS | Encounter Summary ---
Author Organization [facility] Address [facility] [address] [place] [address] Phone Care Team Providers Care Mission Coordinator Name Role Phone Hector Lan DO Unavailable Orville Majano MD Unavailable [email or web address] Mary aCrmen Haji CERAMIC PAINTER Unavailable [phone] Ivet Boothe CERAMIC PAINTER Unavailable [phone] Karen Mendoza CERAMIC PAINTER Unavailable [phone] Hector Lan DO Primary Care Provider [phone] Encounter Details Date Type Department Care Team (Late Contact Info) Description 11/13/2020 Procedure Pass [facility], [address] [address] Social History Tobacco Use Types Packs/Day Years [...] st Contact Info) Description 03/21/2025 Procedure Pass [facility], Ct Scan - [address] [address] 10/23/2025 9:30 AM EST Office Visit [facility] Gastroenterology Clinic 10 [place] [address] Mary Lou Pires, SOCIAL INSURANCE SPECIALIST [address] [place] [address] [email or web address] 10/29/2025 10:30 AM EST Appointment [facility], Ct Scan - [address] [address] Fredy Brooks MD [address] [place] [address] 11/05/2025 10:00 AM EST Office Visit [facility] Pulmonary, Allergy and Critical Care Medicine [address] [facility] [place] [address] Fredy Brooks MD [address] [place] [address] documented as of this encounter Visit Diagnoses Not on filedocumented in this encounter Care Teams Mission Coordinator Relationship Specialty Start Date End Date Hector Lan DO PCP - General Internal Medicine 09/07/17 Hector Lan DO Historical LMR Provider 07/25/17 Orville Majano MD [email or web address] Historical LMR Provider 07/25/17 Mary Carmen Haji, JUAN DANIEL [address] [place] [address] [address] [place] [address] [email or web address] Historical LMR Provider 07/25/17 2 Ivet Boothe NP [address] [place] [address] [email or web address] Historical LMR Provider 07/25/17 2 Karen Mendoza NP [address] [place] [address] Historical LMR Provider 07/25/17 2 documented as of this encounter Additional Source Comments The information contained in this document represents components of the legal health record. It is not the complete legal health record.[facility]
--- OUTSIDE RECORDS SUMMARY | 2025-08-29 03:05 | XMS_ITS | Encounter Summary ---
Author Organization [facility] Address [facility] [address] [place] [address] Phone Care Team Providers Care Director Corporate Name Role Phone Hector Lan DO Unavailable Orville Majano MD Unavailable [email or web address] Mary Carmen Haji SERVICE STATION HELPER Unavailable [phone] Ivet Boothe SERVICE STATION HELPER Unavailable [phone] Karen Mendoza SERVICE STATION HELPER Unavailable [phone] Hector Lan DO Primary Care Provider [phone] Encounter Details Date Type Department Care Team (Late Contact Info) Description 04/27/2019 Procedure Pass [place] Admitting Dept - Virtual Department [address] [place] [address] Social History Tobacco Use Types Packs/Day Years [...] Encounters Date Type Department Care Team (Late Contact Info) Description 03/21/2025 Procedure Pass [facility] Ct Scan - [facility] [address] [place] [address] 10/23/2025 9:30 AM EST Office Visit [facility] Gastroenterology Clinic 10 [place] [address] Mary Lou Pires, CLEARING HOUSE CLERK [address] [address] [email or web address] 10/29/2025 10:30 AM EST Appointment [facility], Ct Scan - [address] [address] Fredy Brooks MD [address] [place] [address] 11/05/2025 10:00 AM EST Office Visit [facility] Pulmonary, Allergy and Critical Care Medicine 10 [place] [address] Fredy Brooks MD [address] [place] [address] documented as of this encounter Visit Diagnoses Not on filedocumented in this encounter Care Teams Director Corporate Relationship Specialty Start Date End Date Hector Lan DO PCP - General Internal Medicine 09/07/17 Hector Lan DO Historical LMR Provider 07/25/17 Orville Majano MD [email or web address] Historical LMR Provider 07/25/17 Mary Carmen Haji, JUAN DANIEL [address] [place] [address] [place] [address] [email or web address] Historical LMR Provider 07/25/17 2 Ivet Boothe NP 21 [place] [address] [email or web address] Historical LMR Provider 07/25/17 2 Karen Mendoza NP [address] [place] [address] Historical LMR Provider 07/25/17 2 documented as of this encounter Additional Source Comments The information contained in this document represents components of the legal health record. It is not the complete legal health record.[facility]
--- OUTSIDE RECORDS SUMMARY | 2025-08-29 03:05 | XMS_ITS | Encounter Summary ---
Author Organization [facility] Address [address] [place] [address] Phone Care Team Providers Care Senior Controls Engineer Name Role Phone Hector Lan DO Unavailable Orville Majano MD Unavailable [email or web address] Hector Lan DO Primary Care Provider [phone] Encounter Details Date Type Department Care Team (Late st Contact Info) Description 11/08/2024 Procedure Pass [facility] Endoscopy Admitting Dept Virtual Department 30 [place] [address] Social History Tobacco Use Types Packs/Day Years Used Date Smoking Tobacco: Every Day Cigarettes 1 60.9 Started: 1965 Smokeless Tobacco: Never Comments:1 pack per day [...] Contact Info) Description 03/21/2025 Procedure Pass [facility], Ct Scan [address] [address] 10/23/2025 9:30 AM EST Office Visit [facility] Gastroenterology Clinic 10 [place] [address] Mary Lou Pires, SATHISH [address] [place] [address] [email or web address] 10/29/2025 10:30 AM EST Appointment [facility], Me Scan [address] [address] Fredy Brooks MD [address] [place] [address] 11/05/2025 10:00 AM EST Office Visit [facility] Pulmonary, Allergy and Critical Care Medicine 10 [place] [address] Fredy Brooks MD [address] [place] [address] documented as of this encounter Visit Diagnoses Not on filedocumented in this encounter Care Teams Senior Controls Engineer Relationship Specialty Start Date End Date Hector Lan DO [email or web address] PCP - General Internal Medicine 09/07/17 Hector Lan DO [email or web address] Historical LMR Provider 07/25/17 Orville Majano MD [email or web address] Historical LMR Provider 07/25/17 documented as of this encounter Additional Source Comments The information contained in this document represents components of the legal health record. It is not the complete legal health record.[facility]
--- OUTSIDE RECORDS SUMMARY | 2025-08-29 03:05 | XMS_ITS | Encounter Summary ---
Author Organization [facility] Address [address] [place] [address] Phone Care Team Providers Care Senior Attorney Name Role Phone Hector Lan DO Unavailable Orville Majano MD Unavailable [email or web address] Hector Lan DO Primary Care Provider [phone] Encounter Details Date Type Department Care Team (Late st Contact Info) Description 01/10/2024 Ancillary Orders [facility], X-Ray - [address] [address] Trinity Ponce PA 6 [facility] [place] [address] Acute bronchitis, viral (Primary Dx) Social History Tobacco Use Types [...] st Contact Info) Description 03/21/2025 Procedure Pass [facility], Ct Scan - [address] [address] 10/23/2025 9:30 AM EST Office Visit [facility] Gastroenterology Clinic [address] [place] [address] Mary Lou Pires, SATHISH [address] [place] [address] [email or web address] 10/29/2025 10:30 AM EST Appointment [facility], Ct Scan - [address] [address] Fredy Brooks MD [address] [place] [address] 11/05/2025 10:00 AM EST Office Visit [facility] Pulmonary, Allergy and Critical Care Medicine 10 [place] [address] Fredy Brooks MD [address] [place] [address] [email or web address] documented as of this encounter Results * XR CHEST PA AND LATERAL 2 VIEWS (01/10/2024 12:04 PM EDT) Anatomical Region Laterality Modality Chest Computed Radiogr aphy 01/10/2024 12:5 5 PM EDT Impressions 01/10/2024 12:56 PM EDT Patchy opacities in the lingula may represent pneumonia or atelectasis. Narrative 01/10/2024 12:56 PM EDT XR CHEST PA AND LATERAL 2 VIEWS Referring clinician's provided indication for this examination in Epic: Bronchitis; Cough COMPARISON: October 14, 2023 FINDINGS: Lungs: Patchy opacities in the lingula may represent pneumonia or atelectasis. Pleura: No pleural effusion. No pneumothorax Heart/Mediastinum: Heart size normal. Bones/Soft Tissues: No acute finding Procedure Note Rhett Gray MD, DENISE - 01/10/2024 XR CHEST PA AND LATERAL 2 VIEWS Referring clinician's provided indication for this examination in Epic:Bronchitis; Cough COMPARISON: October 14, 2023 FINDINGS: Lungs: Patchy opacities in the lingula may represent pneumonia oratelectasis. Pleura: No pleural effusion. No pneumothorax Heart/Mediastinum: Heart size normal. Bones/Soft Tissues: No acute finding IMPRESSION: Patchy opacities in the lingula may represent pneumonia or atelectasis. Trinity MOBLEY IMG XR CHEST Final Resul t documented in this encounter Visit Diagnoses Diagnosis Acute bronchitis, viral- Primary Acute bronchitis, viral documented in this encounter Care Teams Senior Attorney Relationship Specialty Start Date End Date Hector Lan DO [email or web address] PCP - General Internal Medicine 09/07/17 Hector Lan DO [email or web address] Historical LMR Provider 07/25/17 Orville Majano MD [email or web address] Historical LMR Provider 07/25/17 documented as of this encounter Additional Source Comments The information contained in this document represents components of the legal health record. It is not the complete legal health record.[facility]
--- OUTSIDE RECORDS SUMMARY | 2025-08-29 03:05 | XMS_ITS | Encounter Summary ---
Author Organization [facility] Address [address] [place] [address] Phone Care Team Providers Care Operations Specialist Name Role Phone Hector Lan DO Unavailable Orville Majano MD Unavailable [email or web address] Hector Lan DO Primary Care Provider [phone] Encounter Details Date Type Department Care Team (Late st Contact Info) Description 05/11/2024 Ancillary Orders [facility], X-Ray - [address] [address] Angela Deluca, DRAWING TRACER [address] [place] [phone] [email or web address] Spondylosis without myelopathy or radiculopathy, thoracic region (Primary Dx) Social History Tobacco Use Types [...] Contact Info) Description 03/21/2025 Procedure Pass [facility], Ct Scan - [address] [address] 10/23/2025 9:30 AM EST Office Visit [facility] Gastroenterology Clinic 10 [place] [address] Mary Lou Pires, SATHISH [address] [place] [address] [email or web address] 10/29/2025 10:30 AM EST Appointment [facility], Ct Scan - [address] [address] Fredy Brooks MD [address] [place] [address] 11/05/2025 10:00 AM EST Office Visit [facility] Pulmonary, Allergy and Critical Care Medicine 10 [place] [address] Fredy Brooks MD [address] [place] [address] [email or web address] documented as of this encounter Results * XR THORACIC SPINE 2 VIEW (05/11/2024 3:21 PM EDT) Anatomical Region Laterality Modality T-spine Computed Radiogr aphy 05/13/2024 7:49 PM EDT Impressions 05/13/2024 7:50 PM EDT No acute compression fracture deformity identified. Spondylitic changes. Narrative 05/13/2024 7:50 PM EDT XR THORACIC SPINE 2 VIEW Referring clinician's provided indication for this examination in Epic: Pain COMPARISON: None FINDINGS: Mild curvature of the lower thoracic spine convex right. Vertebral body heights maintained. Mild endplate osteophytes seen throughout the thoracic spine. Mild diffuse disc space narrowing. There are spondylitic changes seen in the visualized cervical spine. Procedure Note Art Goldsmith MD - 05/13/2024 XR THORACIC SPINE 2 VIEW Referring clinician's provided indication for this examination in Epic:Pain COMPARISON: None FINDINGS: Mild curvature of the lower thoracic spine convex right. Vertebral bodyheights maintained. Mild endplate osteophytes seen throughout the thoracicspine. Mild diffuse disc space narrowing. There are spondylitic changesseen in the visualized cervical spine. IMPRESSION: No acute compression fracture deformity identified. Spondylitic changes. Angela Deluca NP IMG XR SPINE Final Result documented in this encounter Visit Diagnoses Diagnosis Spondylosis without myelopathy or radiculopathy, thoracic region- Primary Spondylosis without myelopathy or radiculopathy, thoracic region documented in this encounter Care Teams Operations Specialist Relationship Specialty Start Date End Date Hector Lan DO PCP - General Internal Medicine 11/29/17 Hector Lan DO [email or web address] Historical LMR Provider 07/25/17 Orville Majano MD [email or web address] Historical LMR Provider 07/25/17 documented as of this encounter Additional Source Comments The information contained in this document represents components of the legal health record. It is not the complete legal health record.[facility]
--- OUTSIDE RECORDS SUMMARY | 2025-08-29 03:05 | XMS_ITS | Encounter Summary ---
Author Organization [facility] Address [address] [place] [address] Phone Care Team Providers Care Beater Worker Helper Name Role Phone Hector Lan DO Unavailable Orville Majano MD Unavailable [email or web address] Hector Lan DO Primary Care Provider [phone] Encounter Details Date Type Department Care Team (Latest Contact Info) Description 03/22/2023 Ancillary Orders [facility], X-Ray - [address] [address] Trinity Ponce PA 6 [facility] [place] [address] [place] [address] Pneumonia due to other staphylococcus Social History Tobacco Use Types Packs/Day Years [...] with a working camera? Not on file Comments No Sex and Gender Information Value Date Recorded Sex Assigned at Not on file Legal Sex Female 10:02 PM EDT Gender Identity Not on file Sexual Orientation Not on file documented as of this encounter Plan of Treatment Upcoming Encounters Date Type Department Care Team (Late st Contact Info) Description 03/21/2025 Procedure Pass [facility], Ct Scan [address] [address] 10/23/2025 9:30 AM EST Office Visit [facility] [address] [place] [phone] Mary Lou Pires, SATHISH [address] [place] [phone] [email or web address] 10/29/2025 10:30 AM EST Appointment [facility], Ct Scan [address] [address] Fredy Brooks MD [address] [place] [address] 11/05/2025 10:00 AM EST Office Visit [facility] 10 [place] [address] Fredy Brooks MD [address] [place] [phone] documented as of this encounter Results * XR CHEST PA AND LATERAL 2 VIEWS (03/22/2023 9:49 AM EDT) Anatomical Region Laterality Modality Chest Computed Radiogr aphy 03/23/2023 10:1 0 AM EDT Impressions 03/23/2023 10:12 AM EDT Chronic bibasilar parenchymal scarring without evidence of focal infiltrate or other acute cardiopulmonary abnormality. Narrative 03/23/2023 10:12 AM EDT XR CHEST PA AND LATERAL 2 VIEWS COMPARISON: 09/14/[address] and 02/21/2023 radiographs FINDINGS: Devices/Tubes/Lines: None. Lungs: Well-expanded. No acute infiltrate. Chronic bibasilar linear scarring. Pleura: No pleural effusion or pneumothorax. Heart/Mediastinum: Heart and pulmonary vessels within normal limits. No pulmonary edema pattern. Bones/Soft Tissues: Visualized bony thorax intact with multiple orthopedic anchors noted in the right humeral head. Procedure Note Fredy Reilly MD - 03/23/2023 XR CHEST PA AND LATERAL 2 VIEWS COMPARISON: 09/14/[address] and 02/21/2023 radiographs FINDINGS: Devices/Tubes/Lines: None. Lungs: Well-expanded. No acute infiltrate. Chronic bibasilar linearscarring. Pleura: No pleural effusion or pneumothorax. Heart/Mediastinum: Heart and pulmonary vessels within normal limits. Nopulmonary edema pattern. Bones/Soft Tissues: Visualized bony thorax intact with multiple orthopedicanchors noted in the right humeral head. IMPRESSION: Chronic bibasilar parenchymal scarring without evidence of focalinfiltrate or other acute cardiopulmonary abnormality. Trinity MOBLEY IMG XR CHEST Final Resul t documented in this encounter Visit Diagnoses Diagnosis Pneumonia due to other staphylococcus Pneumonia due to other staphylococcus documented in this encounter Care Teams Beater Worker Helper Relationship Specialty Start Date End Date Hector Lan DO PCP - General Internal Medicine 09/07/17 Hector Lan DO Historical LMR Provider 07/25/17 Orville Majano MD [email or web address] Historical LMR Provider 07/25/17 documented as of this encounter Additional Source Comments The information contained in this document represents components of the legal health record. It is not the complete legal health record.[facility]
--- OUTSIDE RECORDS SUMMARY | 2025-08-29 03:05 | XMS_ITS | Encounter Summary ---
Author Organization [facility] Address [address] [place] [address] Phone Care Team Providers Care Monotype Setter Name Role Phone Hector Lan DO Unavailable Orville Majano MD Unavailable [email or web address] Hector Lan DO Primary Care Provider [phone] Encounter Details Date Type Department Care Team (Latest Contact Info) Description 02/09/2024 Ancillary Orders [facility], X-Ray - [address] [address] Trinity Ponce PA 6 [facility] [place] [address] Pneumonia due to other staphylococcus (Primary Dx) Social History Tobacco Use Types [...] st Contact Info) Description 03/21/2025 Procedure Pass [facility], Ct Scan - [address] [address] 10/23/2025 9:30 AM EST Office Visit [facility] [address] [place] [address] Mary Lou Pires, SATHISH [address] [place] [phone] [email or web address] 10/29/2025 10:30 AM EST Appointment [facility], Ct Scan - [address] [address] Fredy Brooks MD [address] [place] [address] 11/05/2025 10:00 AM EST Office Visit [facility] 10 [place] [address] Fredy Brooks MD [address] [place] [address] [email or web address] documented as of this encounter Results * XR CHEST PA AND LATERAL 2 VIEWS (02/09/2024 2:22 PM EDT) Anatomical Region Laterality Modality Chest Computed Radiogr aphy 02/09/2024 3:28 PM EDT Impressions 02/09/2024 3:29 PM EDT No evidence of pneumonia. Narrative 02/09/2024 3:29 PM EDT XR CHEST PA AND LATERAL 2 VIEWS Referring clinician's provided indication for this examination in Epic: Pneumonia COMPARISON: January 10, 2024 FINDINGS: Lungs: Resolution of lingular patchy opacities. No evidence of pneumonia. Pleura: No pleural effusion. No pneumothorax Heart/Mediastinum: Heart size normal. Bones/Soft Tissues: No acute finding Procedure Note Rhett Gray MD, DENISE - 02/09/2024 XR CHEST PA AND LATERAL 2 VIEWS Referring clinician's provided indication for this examination in Epic:Pneumonia COMPARISON: January 10, 2024 FINDINGS: Lungs: Resolution of lingular patchy opacities. No evidence ofpneumonia. Pleura: No pleural effusion. No pneumothorax Heart/Mediastinum: Heart size normal. Bones/Soft Tissues: No acute finding IMPRESSION: No evidence of pneumonia. [facility] XR CHEST Final Resul t documented in this encounter Visit Diagnoses Diagnosis Pneumonia due to other staphylococcus- Primary Pneumonia due to other staphylococcus documented in this encounter Care Teams Monotype Setter Relationship Specialty Start Date End Date Hector Lan DO PCP - General Internal Medicine 09/07/17 Hector Lan DO [phone] (work) [email or web address] Historical LMR Provider 07/25/17 Orville Majano MD [email or web address] Historical LMR Provider 07/25/17 documented as of this encounter Additional Source Comments The information contained in this document represents components of the legal health record. It is not the complete legal health record.[facility]
--- OUTSIDE RECORDS SUMMARY | 2025-08-29 03:05 | XMS_ITS | Encounter Summary ---
Author Organization [facility] Address [facility] [address] [place] [address] Phone Care Team Providers Care Cremator Name Role Phone Hector Lan DO Unavailable Orville Majano MD Unavailable [email or web address] Mary Carmen Haji [facility] Unavailable [phone] Ivet Boothe [facility] Unavailable [phone] Karen Mendoza [facility] Unavailable [phone] Hector Lan DO Primary Care Provider [phone] Encounter Details Date Type Department Care Team (Late st Contact Info) Description 03/27/2019 Ancillary Orders Non-Invasive Cardiology [address] [place] [address] System, Provider Not In, [facility] [address] [address] Chest pain, unspecified type Social History Tobacco Use Types Packs/Day Years [...] st Contact Info) Description 03/21/2025 Procedure Pass [facility], Ct Scan - [address] [address] 10/23/2025 9:30 AM EST Office Visit [facility] 10 [place] [address] Mary Lou Pires, SATHISH [address] [address] [email or web address] 10/29/2025 10:30 AM EST Appointment [facility], Ct Scan - [address] [address] Fredy Brooks MD [address] [place] [phone] 11/05/2025 10:00 AM EST Office Visit [facility] Allergy [facility] Critical Care Medicine 10 [facility] [place] [address] Fredy Brooks MD [address] [place] [phone] documented as of this encounter Results * NC Stress Result for Nuclear Stress Test (03/27/2019 11:08 AM EDT) Max BP Systolic 120 mmHg [facility] Max BP Diastolic 68 mmHg [facility] Max HR 99 BPM [facility] Resting HR 69 BPM [facility] Resting BP Systolic 120 mmHg [facility] Resting BP Diastolic 60 mmHg [facility] Peak METS 1.0 METS [facility] Peak HR 92 BPM [facility] Anatomical Region Laterality Modality Heart Other 03/27/2019 10:3 2 AM EDT 03/27/2019 11:05 AM EDT Narrative 03/28/2019 3:08 PM EDT This report represents only part of the nuclear stress test - sestamibi images will be reported separately by the Dept. of Radiology. Stress Findings Sestamibi images will be reported out separately by the Department of Radiology. This report represents only part of the nuclear stress test. Correlation of the imaging and electrocardiographic results is necessary. Since both tests have a percentage of false negatives/positives, both results must be correlated with the patient's other clinical date. Response to Stress The patient exercised for minutes seconds, achieving 1.0 METS at peak exercise. Baseline blood pressure was 120/60 mmHg, and baseline heart rate was 69 bpm. The patient achieved a peak heart rate of 92 bpm, which is% of their maximum predicted heart rate. 0.4 mg Regadenoson (lexiscan) given IV push over 10 seconds as per protocol immediately followed by injection of Tc99m Sestamibi by Tanja certified nuclear medicine technologist. Test done as a pharm due to suboptimal HR achieved on previous testing 1. EKG - Baseline EKG showed normal sinus rhythm. No ischemic EKG changes after Lexiscan injection. 2. SYMPTOMS - Pt reported flushing and heaviness with breathing after the injection which lasted about 2 min. 3. PHYSIOLOGY - Resting HR was 67. After Lexiscan injection, HR 100 4. ARRHYTHMIAS - few PACs Conclusion - no ischemic EKG changes with pharm testing. Nuclear images pending and will be reported separately. Umesh Lea [facility] with Dr Mckinley . Hector Lan DO CV NM CARDIAC Final Result documented in this encounter Visit Diagnoses Diagnosis Chest pain, unspecified type Chest pain, unspecified type documented in this encounter Care Teams Cremator Relationship Specialty Start Date End Date Hector Lan DO [email or web address] PCP - General Internal Medicine 09/07/17 Hector Lan DO Historical LMR Provider 07/25/17 Orville Majano MD [email or web address] Historical LMR Provider 07/25/17 HajiMary Carmen xiao NP 14 [facility] [address] [place] [address] [email or web address] Historical LMR Provider 07/25/17 2 Ivet Boothe NP 21 [place] [address] [email or web address] Historical LMR Provider 07/25/17 2 Kraen Mendoza NP [address] [place] [address] Historical LMR Provider 07/25/17 2 documented as of this encounter Additional Source Comments The information contained in this document represents components of the legal health record. It is not the complete legal health record.[facility]
--- OUTSIDE RECORDS SUMMARY | 2025-08-29 03:05 | XMS_ITS | Data Portability ---
Author Organization [facility], Telehealth Patient Home Address [address] [place] [address] Assessment No assessment recorded. Plan of Treatment Reminders Order Date Submit Date Provider Last Modified By Organization Details Last Modified Time Details Appointments FOLLOW UP 15 2024 11:15A M LEANDRA ELLISON Not available Not available Not available Lab CBC w/ auto diff 2024 [facility], [address] [place] [address], [id number], 08/28/2025 14:31:52 Referral None recorded. Procedures None recorded. Surgeries None recorded. Imaging None recorded. Medication Orders prednison e 20 mg tablet 2024 025 [facility][id number], [address] [place] [address], [place], [id number], 08/28/2025 14:20:45 prednison e 10 mg tablet 2024 025 [facility] #[id number], [address], [place], [id number], 08/28/2025 14:20:49 amoxicill in 875 mg-potass ium clavulana te 125 mg tablet 2024 025 [facility] #[id number], [address] [place], [address], 08/28/2025 14:15:35 amoxicill in 875 mg-potass ium clavulana te 125 mg tablet 2024 025 [facility] #[id number], [address] [place], [address], 08/12/2025 16:44:00 Patient TargetsNo targets recorded. Patient InstructionsNo instructions recorded. Reason for Referral None Reported. Results Created Date Observation Date Name Description Value Unit Range Abnormal Flag Note LastModifiedBy Organization Detail LastModifiedTime Result Notes None recorded. 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 Not Available [facility] 3 09:29:37 Gastroes ophageal reflux disease 757618049 Active 2017 Not Available [facility] 3 09:29:37 Essentia l hyperten dipika 97141402 Active 2017 Not Available [facility] 3 09:29:37 Chronic obstruct minerva pulmonar y disease 27941752 Active 2017 Not Available [facility] 3 09:29:37 Rupture of rotator cuff of right shoulder 81854493760 243490 Active 2017 Not Available [facility] 3 09:29:36 Generali zed anxiety disorder 45279463 Active 2017 Not Available [facility] 3 09:29:37 Insomnia 588597522 Active 2017 Not Available [facility] 3 09:29:37 Tobacco dependen ce syndrome 53937995 Active 2020 Not Available [facility] 3 09:29:37 Coronary atherosc lerosis 176587204 Active 2020 Not Available [facility] 3 09:29:37 Angular cheiliti s 055394856 Active 2021 Not Available [facility] 3 09:29:37 Edema of lower extremit y 316093496 Active 2021 Not Available [facility] 3 09:29:36 Deep venous thrombos is of lower extremit y 615307053 Active 2021 Not Available [facility] 3 09:29:37 Candidia sis of mouth 77104941 Active 2022 LEANDRA ELLISON [address] [place], [address], [facility] 5 15:03:38 Infectio n of tooth 208936814 Active 2022 Not Available [facility] 3 09:29:37 Pneumoni a 222527632 Active 2022 Not Available [facility] 3 09:29:37 Pain in bilatera l feet 71524487970 329703 Active 2023 LEANDRA ELLISON [address] [place], [address], [facility] 4 11:58:11 Acute bronchit is 14871054 Active 2023 LEANDRA ELLISON [address] [place], [address], [facility] 5 16:29:24 Fever 875846724 Active 2023 LEANDRA ELLISON [address] [place], [address], [facility] 4 11:10:36 Wheezing 17081542 Active 2023 LEANDRA ELLISON [address] [place], [address], [facility] 4 11:10:45 Atypical chest pain 530350350 Active 2023 LEANDRA ELLISON [address] [place], [address], [facility] 4 15:02:57 COVID-19 930066047 Active 2023 LEANDRA ELLISON [address] [place], [address], [facility] 4 11:24:13 Migraine 76724273 Active 2024 LEANDRA ELLISON [address] [place], [address], [facility] 5 12:34:47 Mixed simple and mucopuru lent chronic bronchit is 314692291 Active 2024 LEANDRA ELLISON [address] [place], [address], [facility] 5 11:25:14 Acute infectiv e bronchit is 156350294 Active 2024 LEANDRA ELLISON [address] [place] [address], [address], [facility] 5 16:48:05 Muscle spasm of cervical muscle of neck 64649872773 4 Active 2024 LEANDRA ELLISON [address] [place], [address], [facility] 5 16:33:43 Problem Notes None recorded. Procedures Surgical History Date Name Laterality Status Provider Name and Address Organization Details Recorded Time 10/04/19 50 Most Recent Mammogram completed [facility] 04/09/2019 12:06:55 Total Hysterectomy completed [facility] 04/09/2019 12:09:04 Appendectomy completed [facility] 04/09/2019 12:09:27 Imaging Results None recorded. Procedure Notes None recorded. Medical Equipment None Reported. Allergies Allergen ID Allergen Name Allergen Category Reaction Reaction Severity Criticality Documentation Date Start Date Code Code System Note Provider Name and Address Organization Details Recorded Time 2495 Levaquin medicatio n other Not available Not available 08/15/2018 49063 2 RxNorm possi ble tendi nopat hy, avoid if possi ble January, [facility] [address] [place], [address], [facility] 8 16:02:56 2496 Medrol medicatio n edema Not available Not available 08/15/2018 2 RxNorm quest ionab le corre latio n, avoid if possi ble January, [facility] [address] [place], [address], [facility] 8 16:02:48 9791 albuterol medicatio n Not available Not available low 08/28/20252024 435 RxNorm Not Available [facility] 5 03:44:09 9792 varenicli ne Not available Not available Not available Not available 08/28/20252023 48586 2 RxNorm night justin Not Available [facility] 5 03:44:[address] medicatio n Not available Not available Not available 08/28/20252024 01392 36 RxNorm Not Available [facility] 5 03:44:09 9794 levofloxa maik medicatio n other Not available Not available 08/28/20252024 92159 RxNorm Other react ion(s ): Other Levaq uin Not Available [facility] 5 03:44:09 9795 methylpre dnisolone medicatio n other Not available Not available 08/28/20252024 6902 RxNorm Other react ion(s ): Edema Medro l Not Available [facility] 5 03:44:09 Medications Name [...] height Body mass index (BMI) Body weight Heart rate Oxygen saturation Oxygen saturation in Arterial blood by Pulse oximetry Systolic And Diastolic Provider Name and Address Organization Details Last Updated DateTime 5 157.48 cm 28.7 kg/m2 89617 g 82 /min 94 % 94 % 112/68 mm[Hg] Libia Medina [facility] 5 15:31:37 Date Recorded Body height Body mass index (BMI) Body weight Heart rate Oxygen saturation Oxygen saturation in Arterial blood by Pulse oximetry Systolic And Diastolic Provider Name and Address Organization Details Last Updated DateTime 5 157.48 cm 28.7 kg/m2 27114 g 97 /min 93 % 93 % 120/66 mm[Hg] Mckenzie Navarro [facility] 5 14:59:07 Date Recorded Body height Body mass index (BMI) Body weight Oxygen saturation Oxygen saturation in Arterial blood by Pulse oximetry Heart rate Systolic And Diastolic Provider Name and Address Organization Details Last Updated DateTime 5 157.48 cm 28.7 kg/m2 99340 g 96 % 96 % 84 /min 140/82 mm[Hg] [facility] 5 11:04:24 Date Recorded Body height Body mass index (BMI) Body weight Oxygen saturation Oxygen saturation in Arterial blood by Pulse oximetry Heart rate Systolic And Diastolic Provider Name and Address Organization Details Last Updated DateTime 5 157.48 cm 29.1 kg/m2 42709.1 9 g 98 % 98 % 87 /min 128/80 mm[Hg] [facility] 5 16:06:29 Date Recorded Body height Body mass index (BMI) Body weight Oxygen saturation Oxygen saturation in Arterial blood by Pulse oximetry Heart rate Systolic And Diastolic Provider Name and Address Organization Details Last Updated DateTime 5 157.48 cm 29.1 kg/m2 18733.1 9 g 98 % 98 % 78 /min 118/74 mm[Hg] [facility] 5 13:54:40 Social History Question Answer Notes LastModified by Organizat ion Details LastModified Time Tobacco Smoking Status Current Every Day Smoker Not Available [facility] 08/12/2020 03:36:24 What Was The Date Of Your Most Recent Tobacco Screening? 08/12/2025 Information not available 08/12/2025 How Much Tobacco Do You Smoke? 0.25 PPD Information not available 08/12/2025 Sex: Unknown Functional Status Question Answer Note LastModified by Organization D etails LastModified Time Do you or have you ever used any other forms of tobacco or nicotine? No [email or web address] Information not available 03/18/2023 Mental Status None recorded. Family History Nothing Reported. Medical History No medical history recorded. Gynecological History Statement/Question Response Most Recent Mammogram 1950 Obstetrics History GPAL:G 0 P 0 0 0 0 Immunizations Vaccine Type Date Status Note Provider Nam e and Address Organization Details Recorded Time influenza, unspecified formulation 09/20/2023 completed Sudha Huang ella [facility] 09/23/2023 08:21:34 COVID-19 vaccine, vector-nr, rS-ChAdOx1, PF, 0.5 mL 12/11/2020 completed Esther Dominguez [facility] 12/30/2020 13:40:13 Past Encounters Encounter ID Performer Location Encounter Start Date Encounter Closed Date Diagnosis/Indication Diagnosis SNOMED-CT Code Diagnosis ICD10 Code Diagnosis IMO Codes Diagnosis [id number] [facility] [address],[place] [address] 03/28/2018 08:59:45 03/28/2018 10:09:04 Adult health examination 858814656 Z00.[address] maciel has ordered dexa scan and she says that there was some mild bone loss but denies osteopenia she has cscope next year 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 cardiovascular system disease 457855375 Z13.6 Active or passive immunization 587633421 Z23 [id number] [facility] [address],[place] [address] 08/01/2018 13:29:02 08/01/2018 16:49:32 Gastroesophageal reflux disease 029414040 K21.9 Essential hypertension 77976988 I10 Sj gren's syndrome 28705409 M35.00 Chronic ob structive pulmonary disease 32545852 J44.9 [place] [id number] [facility] [address], [place] [address] 08/15/2018 15:28:21 08/15/2018 16:28:43 Knee pain 26442584 M25.569 possibly due to levaquin monitor sx, conservati ve tx, no extreme activity f/u if sx change, worsen or do not gradually improve with conservati ve treatment Chronic ob structive pulmonary disease 24835724 J44.9 has improved with the treatment very minimal cough Edema of l ower extremity 022108291 R60.0 possibly due to medrol dose pack if worsens f/u karan or if new sx accompany such as ASHLEY elevate legs, adequate hydration [id number] Hector Lan [facility] [address],[place] [address] 09/19/2018 08:57:11 09/19/2018 10:08:34 Chronic obstructive pulmonary disease 02050864 J44.9 still some mild cough, improving no sob anymore Gastroesop hageal reflux disease 177203990 K21.9 well controlled Essential hypertension 97257676 I10 well controlled has lab orders for blood work Insomnia 980959586 G47.0 0 well controlled Generalize d anxiety disorder 65778449 F41.1 well controlled [id number] Hector Lan [facility] [address],[place] [address] 03/12/2019 10:42:50 03/12/2019 13:35:27 Dyspnea on exertion 76661808 R06.09 ? COPD vs cardiac origin if recurs or new worsening sx f/u here or go to ER Chronic ob structive pulmonary disease 12565603 J44.9 HAMMER Essential hypertension 61576830 I10 well controlled has lab orders for blood work Psoriatic arthritis 1563 40891 L40.50 [id number] Hector Lan [facility] [address],[place] [address] 04/10/2019 08:56:36 04/10/2019 09:40:37 Adult health examination 590235491 Z00.00 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 cardiovascular system disease 034652496 Z13.6 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 malignant neoplasm of colon 974857969 Z12.11 will do cologuard 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 osteoporosis 873279855 Z13.[address] maciel who orders her bmd Screening mammography 24 637273 Z12.31 UTD Osteopenia 983700976 M85 .80 Active or passive immunization 342422107 Z23 Body mass index 25-29 - overweight 307618324 Z68.27 planning to walk more Tobacco user 407944442 Z 72.0 working on quitting [id number] Hector Lan [facility] [address],[place] [address] 08/28/2019 10:52:24 08/28/2019 12:05:59 Cellulitis of lower limb 008940990 L03.119 seems like it may be getting better, will do a 7 day course of keflex Psoriasis 1176063 L40.9 Chronic ob structive pulmonary disease 01319478 J44.9 [id number] Hector Lan [facility] [address],[place] [address] 02/05/2020 10:43:18 02/05/2020 11:42:04 Body fluid retention 19540346 R60.9 both kidney and liver function labs were normal 5 months ago hold hctz until labs received call karan for any changes kade worsening sob/cp Chronic ob structive pulmonary disease 10414065 J44.9 more sob than usual likely fluid retention related Essential hypertension 89514090 I10 stable Angular cheilitis 011288 005 K13.0 ? fungal vs nutritiona l deficiency Retention of urine 00347 4002 R33.9 has to push to void doesn't seem to be voiding consistent ly with amount of water inatke Tachycardia 4426041 R00. 0 slightly elevated higher than usual for the pt Psoriatic arthritis 1563 05337 L40.50 [id number] Hector Lan [facility] [address],[place] [address] 02/18/2020 09:24:25 02/18/2020 09:59:24 Body fluid retention 91313141 R60.9 increase the lasix Chronic ob structive pulmonary disease 95466210 J44.9 more sob than usual likely fluid retention related Essential hypertension 94836670 I10 stable Angular cheilitis 453272 005 K13.0 resolved with treatment Retention of urine 24965 4002 R33.9 urinating is better Tachycardia 3926142 R00. 0 improved Psoriatic arthritis 1563 99081 L40.50 Dyspnea on exertion 6084 5006 R06.09 ? COPD vs cardiac origin if recurs or new worsening sx f/[place] [id number] Hector Lan [facility] [address],[place] [address] 02/29/2020 09:38:07 02/29/2020 10:15:47 Psoriatic arthritis 532000387 L40.50 stable on medication Chronic ob structive pulmonary disease 51401040 J44.9 stable 02 sat at 98% Edema of l ower extremity 555537040 R60.0 resolved will stop the lasix for now and switch back to the HTCZ if she has the edema again will consider looking at TSH, ESR, and CRP, maybe a lyme panel [id number] Hector Lan [facility] [address],[place] [address] 07/28/2020 09:31:52 07/28/2020 12:23:36 Chronic obstructive pulmonary disease 23376647 J44.9 stable 02 sat at 97% Diarrhea 29146173 R19.7 staying hydrated and eating BRAT diet will follow how she is doing Servando hematuria 22880614 5 R31.0 resolved Screening mammography 24 443162 Z12.31 needs mammogram [id number] Hector Lan [facility] [address],[place] [address] 12/30/2020 13:31:49 12/30/2020 14:03:20 Active or passive immunization 896017247 Z23 advised Adult heal th examination 049914237 Z00.00 BP fine today 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 cardiovascular system disease 072157365 Z13.6 will fu with Tobacco de pendence syndrome 62056700 F17.200 discussed to smoking cessation with patient, not ready to quit [id number] Hector Lan DO [facility] [address],[place] [address] 07/07/2021 08:16:34 07/07/2021 15:05:05 Mixed hyperlipidemia 228879468 E78.2 will fu with recheck of her BW Psoriatic arthritis 1563 03070 L40.50 stable on medication has fu with Rheum for medication eval Chronic ob structive pulmonary disease 38268676 J44.9 stable 02 sat at 97% Coronary atherosclerosis 589580608 I25.10 has fu with cardio to discuss CT results [id number] Hector Lan [facility] [address],[place] [address] 12/23/2021 14:00:32 12/25/2021 11:02:44 Infection of tooth 589697206 K04.7 will start her on abx prior to seeing her dentist Psoriatic arthritis 1563 74227 L40.50 stable Chronic ob structive pulmonary disease 40377226 J41.0 stable [id number] LEANDRA ELLISON [facility] [address],[place] [facility] [place] [address] 05/18/2022 09:55:43 05/18/2022 10:43:31 Chronic obstructive pulmonary disease 16782088 J41.0 stable Essential hypertension 72189076 I10 BP is stable today Gastroesop hageal reflux disease 623370521 K21.9 stable Generalize d anxiety disorder 58943194 F41.1 stable Tobacco de pendence syndrome 38402908 F17.200 discussed to smoking cessation with patient, not ready to quit Angular cheilitis 964139 005 K13.0 related to her ICS use Edema of l ower extremity 791310436 R60.0 will start lasix and stop HTCZ Chronic pain 11597419 G8 9.29 working with PSS for injection for her back [id number] Hector Lan [facility] [address] [place] [address] 06/18/2022 08:14:15 06/18/2022 14:06:20 Angular cheilitis 005011172 K13.0 stable Chronic ob structive pulmonary disease 35975858 J41.0 stable Essential hypertension 07513072 I10 stable Edema of l ower extremity 038688005 R60.0 stable [id number] Hector Lan DO [facility] [address],[facility] [place] [address] 03/18/2023 11:17:35 03/18/2023 14:31:30 Pneumonia 220567626 J15.29 needs recheck for resolution of his pneumonia Psoriatic arthritis 1563 98057 L40.59 stable for the most partwas having flare ups last few weeks Chronic ob structive pulmonary disease 80467849 J41.0 exacerbati on related to pneumonia Edema of l ower extremity 120073679 R60.0 agreed to f/u lab work given prior swelling [id number] Hector Lan [facility] [address] [place] [address] 09/12/2023 10:20:45 09/12/2023 11:05:51 Pneumonia 975435099 J15.29 needs recheck for resolution of his pneumonia Insomnia 936041084 G47.0 0 needs refill [id number] Hector Lan [facility] [address],[place] [address] 01/10/2024 09:22:16 01/10/2024 16:38:10 Acute bronchitis 43306130 J20.8 will fu after CXR if treatment plan needs to changes Chronic ob structive pulmonary disease 36705948 J41.0 exacerbati on related to pneumonia? agreed to CXR Fever 946674248 R50.84 continue to monitor Wheezing 94158638 R06.2 increase to 20 mg prednisone [id number] Hector Lan [facility] [address] [place] [address] 08/03/2024 14:14:48 08/03/2024 15:41:11 Depression screening 999516574 Z13.31 SCREENING NEGATIVE Chronic ob structive pulmonary disease 66805780 J41.0 stable Psoriatic arthritis 1563 12061 L40.59 stable for the most partwas having flare ups last few weeks Edema of l ower extremity 213218437 R60.0 agreed to f/u lab work given prior swelling Atypical chest pain 1025 08974 R07.89 agreed to recheck echo and pharm stress testhaving jaw pain and occasional right arm painwanted to r/o cardio componenen t [id number] Hector Lan [facility] [address],[place] [address] 03/05/2025 15:12:34 03/05/2025 16:13:15 Depression screening 208194006 Z13.31 SCREENING NEGATIVE Chronic ob structive pulmonary disease 91307379 J41.0 stable Psoriatic arthritis 1563 86268 L40.59 discussed new medication , adjusting pain medication Psoriasis 8770920 L40.9 had a flare up, is getting better [id number] Hector Lan [facility] [address],[place] [address] 03/13/2025 14:37:12 03/13/2025 15:21:17 Chronic pain 78412722 G89.29 working with PSS for injection for her back Psoriatic arthritis 1563 24112 L40.59 discussed new medication , adjusting pain medication [id number] Hector Марина Lan [facility] [address],[place] [address] 03/26/2025 10:21:00 03/26/2025 11:50:13 Preprocedural examination done 9568517542 40318 Z01.818 973708 The patient was seen in the office today for pre-op evaluation . All medical conditions on patient's problem list were addressed and are currently stable, no interventi on needed at this time. Based on history and physical performed, the patient is cleared for surgery. Mixed simp le and mucopurulent chronic bronchitis 096300973 J41.8 119053 Stable, O2 sat was 96% on RA, stable Essential hypertension 63706568 I10 BP recheck 128/78 L arm sitting after 10 minutesBP well-contr olled [id number] Hector Lan [facility] [address],[place] [address] 08/12/2025 15:37:56 08/12/2025 17:22:59 Depression screening 824065011 Z13.31 SCREENING NEGATIVE Acute bronchitis 8298157 2 J20.9 89974333 will set up with alt abx Muscle spa sm of cervical muscle of neck 6027302960 04 M62.633 5241758 take two baclofen for the next 7 days [id number] Hector Lan [facility] [address],[place] [address] 08/28/2025 13:46:43 08/28/2025 14:30:49 Depression screening 277233531 Z13.31 SCREENING NEGATIVE Acute bronchitis 8566442 2 J20.9 will set up with alt abx Psoriatic arthritis 1563 95097 L40.50 discussed new medication , adjusting pain medication Health Concerns Section Related Observation LastModified by Organization Detai ls LastModified Time None Recorded Concern Status LastModified by Organization Details LastModified Time None Recorded Advance Directives Directive None Recorded Payers Insurance Date Sequence Insurance Name Policy Number Policy Stewart Covered Member ID Stewart Member ID Guarantor Name 08/26/2025 2 [facility] F (MEDICARE SUPPLEMENT) [id number] Ramon Atkins Shon [id number] Annie Rodríguez Shon 08/23/2025 1 [place]IC[place]: [employer] Annie Rodríguez Shon [id number] Annie Rodríguez Shon Notes Date Note Type Note Provider Name and Address Organization Details Recorded Time 03/05/20 25 text/htm l ROS as noted in the HPI c/o muscle pain/back pain/arm pain pain: recommended switching to pred 20 mg again, will just manage her medications and her osteoporosis since this is the only effective medicationenbrel isn't working well for the patienthaving significant loss of function due to this the patient and I discussed options, will take over her meds from Dr. Pryor and adjust dosing since he would be move comfortable for us taking over me need to adjust dosing of enbrel through [facility] though patient agreed to this plan her hydrocodone will be due beginning done well with methotrexate in the past, may just need an alt biologic medicationwill discuss going forward depression screening: The patient denies little pleasure in activities they find enjoyable, feeling depressed, difficulties sleeping, feeling tired or having little energy, change in appetite, feeling guilty, overwhelmed or unmotivated. The patient denies suicidal ideation, thoughts of hurting themselves or others. Their mood is appropriate, they show good judgement and clear understanding of the conversation. They are orientated to time, place and person. They are not expressing any concerning thoughts or actions that would need further investigation and treatment for mental health. LEANDRA ELLISON [address] [facility], [place], [address], [facility] 03/05/2025 15:59:14 03/13/20 25 text/htm l ROS as noted in the HPI 1 week f/u the patient reports that she is feeling much betterthe patient reports that she was able to drop down to 10 mg of prednisone and is still doing wellthe patient reports that her skin cleared up but her joints are still acheythe patient reports that she is only able to the enbrel one shot instead of two thinking about switching to an alternative rheumdiscussed pain management, thinks she wants to cont on her the hydrocodone, will dose it more frequently as needed which is more what she needs to control the pain otherwise she is having breakthrough pain takes ativan PRN at night if she needs it not using the amitriptyline consistently, occasionally the patient's restless legs are improving will drop to 7.5 mg of hydrocodone, dosed more frequently than four times a day so she doesn't have as many breakthrough episodespatient is safe on this med, has been on it for years, uses appropriately and never overuses if she doesn't (every 4 to 6 hours, up to 6 times per day if needed, probably only just needs the fifth pill and she should have much better control) monitored closely in the office put it on Tuesday LEANDRA ELLISON [address] [place] [address], [id number], [facility] 03/13/2025 15:19:38 03/26/20 25 text/htm l Pre-OpReported by PatientHPIFor risk factors, patient reportschronic cardiopulmonary condition (copd stable and controlled it and htn controlled)but reportsno cognitive impairment,no functional impairment,no malnutrition,no frailty,able to climb a flight of stairs (exercise capacity>4 mets),no obstructive sleep apnea,non-smoker,no alcohol misuse,no illicit drug use,no chronic cardiopulmonary condition, andnot obese. For severity, patient reportsmoderate. For anesthesia hx, patient reportsno hx of anesthesia complications,no allergy to anesthetic agents,no family history of anesthesia complications, andno history with anesthesia. For functional ability, patient reportsable to walk up stairs,able to perform heavy work around the house,no difficulty walking up hills, andable to walk 4 mph. For post-op support, patient reportsadequate assistance at home (children). For surgery to be performed, (bilateral cataract surgery with dr. valladares at [facility]). For context/condition being addressed, (cataract surgery, [facility]). For location, ([facility] then r eye).ROS as noted in the HPI Patient is seen routinely in the office and makes all of her follow-up and medication check appointments Patient's medication is monitored closely by this office and is taking everything under medical provider guidance Patient has initial elevated BP in office when first roomed, recheck BP is 128/78 L arm sitting LEANDRA ELLISON [address] [place], [phone], [facility] 03/26/2025 11:41:56 08/12/20 25 text/htm l ROS as noted in the HPI Acute bronchitis the patient reports that she hasn't improved on the medicationrecommended changing treatmentwill change out to augmentin, doxy ineffectivecurrently already on the prednisone the patient and I discussed enbrel which is probably causing the more frequent URI sblood work was good except for elevated WBC'sshe is looking into 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
--- OUTSIDE RECORDS SUMMARY | 2025-08-29 03:05 | XMS_ITS | Encounter Summary ---
Author Organization [facility] Address [address] [place] [address] Phone Care Team Providers Care Account Group Supervisor Name Role Phone Hector Lan DO Unavailable Orville Majano MD Unavailable [email or web address] Hector Lan DO Primary Care Provider [phone] Encounter Details Date Type Department Care Team (Late st Contact Info) Description 11/25/2023 Procedure Pass [facility], Ct Scan - [address] [address] Social History Tobacco Use Types Packs/Day Years [...] st Contact Info) Description 03/21/2025 Procedure Pass [facility], Ct Scan [address] [address] 10/23/2025 9:30 AM EST Office Visit [facility] [address] [place] [address] Mary Lou Pires, SATHISH [address] [place] [address] [email or web address] 10/29/2025 10:30 AM EST Appointment [facility], Ct Scan [address] [address] Fredy Brooks MD [address] [place] [address] 11/05/2025 10:00 AM EST Office Visit [facility], Allergy and Critical Care Medicine [address] [place] [address] Fredy Brooks MD [address] [place] [address] documented as of this encounter Visit Diagnoses Not on filedocumented in this encounter Care Teams Account Group Supervisor Relationship Specialty Start Date End Date Hector Lan DO [email or web address] PCP - General Internal Medicine 09/07/17 Hector Lan DO [email or web address] Historical LMR Provider 07/25/17 Orville Majano MD [email or web address] Historical LMR Provider 07/25/17 documented as of this encounter Additional Source Comments The information contained in this document represents components of the legal health record. It is not the complete legal health record.[facility]
--- OUTSIDE RECORDS SUMMARY | 2025-08-29 03:05 | XMS_ITS | Encounter Summary ---
Author Organization [facility] Address [facility] [employer] [address] [address] Phone Care Team Providers Care Clinical Rn Name Role Phone Hector Lan DO Unavailable Orville Majano MD Unavailable [email or web address] Carmen Haji [employer] Unavailable [phone] Ivet Boothe [employer] Unavailable [phone] Karen Mendoza [employer] Unavailable [phone] Hector Lan DO Primary Care Provider [phone] Encounter Details Date Type Department Care Team (Late st Contact Info) Description 10/18/2017 Ancillary Orders Virtual Department [address] [place] [address] Hector Lan DO [address] [place] [address] [place] [address] Breast screening Social History Tobacco Use Types Packs/Day Years Used Date Smoking Tobacco: Every Day Cigarettes 0.3 45 Smokeless Tobacco: Never Comments:About 1/3 pack per day Comments Unknown Sex and Gender Information Value Date Recorded Sex Assigned at Not on file Legal Sex Female 10:02 PM EDT Gender Identity Not on file Sexual Orientation Not on file documented as of this encounter Plan of Treatment Upcoming Encounters Date Type Department Care Team (Late st Contact Info) Description 03/21/2025 Procedure Pass [facility], Ct Scan - [address] [address] 10/23/2025 9:30 AM EST Office Visit [facility] [address] [place] [address] Mary Lou Pires, SATHISH [address] [address] [email or web address] 10/29/2025 10:30 AM EST Appointment [facility], Ct Scan [address] [address] Fredy Brooks MD [address] [place] [address] 11/05/2025 10:00 AM EST Office Visit [facility] Pulmonary, Allergy and Critical Care Medicine [address] [place] [address] Fredy Brooks MD [address] [place] [address] documented as of this encounter Results * BI MAMMOGRAM SCREENING WITH TOMOSYNTHESIS WITH CAD (BILATERAL) (11/22/2017 12:58 PM EST) Anatomical Region Laterality Modality Breast Left, Breast Right, Breast Bilateral Bila teral Mammography 11/22/2017 1:46 PM EST Impressions 11/22/2017 1:48 PM EST Stable appearance relative to prior imaging. No findings suggestive of malignancy are seen. BI-RADS CATEGORY: 1 - Negative. DENSITY: There are scattered fibroglandular densities. POS - [id number] Narrative 11/22/2017 1:48 PM EST Full-field digital mammography is obtained with computer-aided detection. Comparison with prior imaging from 11/16/2016 is made with older imaging dating back as far as 02/09/2011 also reviewed. There is scattered fibroglandular density evident in the breasts. In addition to 2-D C view imaging, tomosynthesis images are obtained in two projections of each breast. No dominant soft tissue mass of concern, suspicious cluster of calcifications, significant interval skin changes, or architectural distortion is identified. Procedure Note Hero Gross MD - 11/22/2017 Full-field digital mammography is obtained with computer-aided detection.Comparison with prior imaging from 11/16/2016 is made with older imagingdating back as far as 02/09/2011 also reviewed. There is scattered fibroglandular density evident in the breasts. Inaddition to 2-D C view imaging, tomosynthesis images are obtained in twoprojections of each breast. No dominant soft tissue mass of concern, suspicious cluster ofcalcifications, significant interval skin changes, or architecturaldistortion is identified. IMPRESSION: Stable appearance relative to prior imaging. No findings suggestive ofmalignancy are seen. BI-RADS CATEGORY: 1 - Negative. DENSITY: There are scattered fibroglandular densities. POS - [id number] Hector Lan DO IMG MG EXAMS Final Result documented in this encounter Visit Diagnoses Diagnosis Breast screening Breast screening, unspecified Breast screening Breast screening, unspecified documented in this encounter Care Teams Clinical Rn Relationship Specialty Start Date End Date Hector Lan DO [email or web address] PCP - General Internal Medicine 09/07/17 Hector Lan DO Historical LMR Provider 07/25/17 Orville Majano MD [email or web address] Historical LMR Provider 07/25/17 Mary Carmen Haji NP [address] [place] [address] [place] [address] [email or web address] Historical LMR Provider 07/25/17 2 Ivet Boothe NP [address] [place] [address] [email or web address] Historical LMR Provider 07/25/17 2 Karen Mendoza NP [address] [place] [address] Historical LMR Provider 07/25/17 2 documented as of this encounter Additional Source Comments The information contained in this document represents components of the legal health record. It is not the complete legal health record.[facility]
--- OUTSIDE RECORDS SUMMARY | 2025-08-29 03:05 | XMS_ITS | Clinical Summary ---
Author Organization [facility] Address [address] [facility] [address] [place] [phone] Phone Care Team Providers Care Order Builder Name Role Phone Elan Rios DO Unavailable Orville Majano MD Unavailable [email or web address] Elan Rios DO Primary Care Provider [phone] Allergies Active Allergy Reactions Criticality Noted Date Comments Albuterol Tremor Low 11/16/2024 Varenicline 11/25/2023 nightmares Roflumilast 03/21/2025 Levofloxacin Other (See Comments) 03/21/2025 Other reaction(s): Other Levaquin Methylprednisolone Other (See Comments) 025 Other reaction(s): Edema Medrol Medications multivitamin-mi nerals-lutein (CENTRUM SILVER) Tab Take 1 tablet by mouth daily. Active citalopram (CELEXA) 40 MG tablet Take 40 mg by mouth daily. Active hydroCHLOROthia zide (HYDRODIURIL) 50 MG tablet Take 50 mg by mouth daily. Active furosemide (LASIX) 80 MG tablet daily. Active Lactobacillus acidophilus (ACIDOPHILUS ORAL) Take by mouth. Activ e etanercept (ENBREL SURECLICK) 50 mg/mL (1 mL) PnIjIndications :Psoriatic arthritis Inject 1 mL (50 mg total) under the skin once a week. 12 pen 3 0 Active gabapentin (NEURONTIN) 100 MG capsule TAKE 1 CAPSULE BY MOUTH TWICE A DAY 60 capsule 2 1 Active Additional Information Patient taking differently: 300 mg Oral 2 times daily, Reported on 03/21/2025 amitriptyline (ELAVIL) 10 MG tablet TAKE 2 TABLETS BY MOUTH EVERY DAY 180 tablet 1 Active Additional Information Patient taking differently: Rarely takes, Reported on 03/21/2025 HYDROcodone-austin taminophen (NORCO 10-325) 10-325 mg per tablet Take 1 tablet by mouth every 6 (six) hours as needed for pain (specific location in comments). Take 1 tab every 6 hours as needed 84 tablet 1 Active Additional Information Patient taking differently:1 tablet Oral Every 6 hours PRN, pain (specific location in comments),7.5 mg 6 times per day, Reported on 03/21/2025 clotrimazole (LOTRIMIN) 1 % cream 2 Active baclofen (LIORESAL) 5 mg tablet Take 5 mg by mouth daily. For muscle spasms Active omeprazole (PRILOSEC) 20 MG capsule omeprazole 20 mg capsule,delayed release TAKE 1 CAPSULE BY MOUTH EVERY DAY 30 MINUTES BEFORE MORNING MEAL FOR 30 DAYS Active nicotine polacrilex (COMMIT) [address] 1 lozenge (2 mg total) inside cheek as needed for smoking cessation (no more than 10 per day). 108 lozenge 5 4 Active Additional Information Patient not taking.Reported on 03/21/2025 buPROPion (WELLBUTRIN SR) 100 MG SR 12 hr tablet Take 1 tablet (100 mg total) by mouth 2 (two) times a day. 60 tablet 5 4 Active Additional Information Patient taking differently:100 mg Oral 2 times daily,On hold, Reported on 03/21/2025 levalbuterol (XOPENEX HFA) 45 mcg/actuation inhalerIndicati ons:Chronic obstructive pulmonary disease, unspecified COPD type Inhale 1-2 puffs into the lungs every 4 (four) hours as needed for wheezing. 15 g 5 4 Active predniSONE (DELTASONE) 5 MG tablet Take 5 mg by mouth daily with breakfast. For arthritis Active LORazepam (ATIVAN) 1 MG tablet Take 1 mg by mouth nightly at bedtime. 5 Active nebulizer and compressor [place] 1 filter/month 2 disposable neb kits/month 1 permanent neb kit/6 months Every six hours PRN for wheezing/shortne ss of breath 1 each 5 Active guaiFENesin (MUCINEX) 600 mg ER biphasic tablet Take 2 tablets (1,200 mg total) by mouth 2 (two) times a day. 5 11/16/19 26 Active Additional Information Patient not taking.Reported on 03/21/2025 levalbuterol (XOPENEX) 0.63 mg/3 mL nebulizer solutionIndicat ions:Chronic obstructive pulmonary disease, unspecified COPD type Take 3 mL (0.63 mg total) by nebulization 2 (two) times a day. With HyperSal nebs 180 mL 11 Active HYDROcodone-austin taminophen (NORCO) 7.5-325 mg per tablet Take 1 tablet every 4-6 hours by oral route for 28 days. Active sodium chloride (HYPERSAL) 7 % Nebu TAKE 4 ML BY NEBULIZATION 2 TIMES A DAY Active nystatin (MYCOSTATIN) 100,000 units/mL suspension SHAKE LIQUID AND TAKE 5 ML BY MOUTH FOUR TIMES DAILY FOR 10 DAYS DIRECTED Active Ca cmb [id number] 120-1,000-10 mg-unit-mg Tab Take by mouth. Active BREZTRI AEROSPHERE 160-9-4.8 mcg/actuation inhalerIndicati ons:Chronic obstructive pulmonary disease, unspecified COPD type INHALE 2 PUFFS INTO THE LUNGS TWICE DAILY 10.7 g 11 5 Active Active Problems Problem Noted Date Diagnosed Date Cigarette smoker 03/21/2025 Assessment & Plan (03/21/2025 5:39 PM EDT): Emphasize importance of trying to cut back and quit. Encouraged trial of Wellbutrin which she has used in the past. Discussed that if continues to use due to need to treat concurrent symptoms of generalized anxiety, other treatments could be considered. Abnormal screening computed tomography (CT) of c hest 10/25/2024 Assessment & Plan (11/16/2024 2:36 PM EST): Diffuse bronchial headaches with questionable endobronchial lesion, fortunately none found on bronchoscopy. Rather it was likely inspissated secretions. Continue with annual screening low-dose CT scanning. Assessment & Plan (10/25/2024 11:56 AM EST): Distal tracheal/left mainstem endobronchial lesion noted on current screening chest CT highly concerning for malignancy. Secretions would be less likely given solid appearance and location. Benign polypoid lesion certainly is within the differential as is malignancy. Recommend endobronchial evaluation via fiberoptic bronchoscopy. Patient is in agreement. Will be scheduled within several weeks. Encounter for screening for lung cancer 10/26/19 Assessment & Plan (03/21/2025 5:40 PM EDT): Last study in October lung RADS category 2. Continue annual screening. Patient qualifies for [place] Lung Cancer Screening - based on age (55-80), absence of active signs and symptoms of lung cancer, smoking pack year history (>30) and if a former smoker - number of years since quitting (<15) Shared decision making was completed which included - benefits and harms of screening, follow-up diagnostic testing, over-diagnosis, false positive rate, and total radiation exposure. Counseling on the importance of adherence to annual lung cancer LDCT screening, impact of co-morbidities and ability or willingness to undergo diagnosis and treatment was reviewed. Counseling on the importance of maintaining cigarette smoking abstinence if former smoker; or the importance of smoking cessation if current smoker and, if appropriate, furnishing of information about tobacco cessation interventions was done. Assessment & Plan (11/25/2023 11:36 AM EST): Lung RADS category 2 study last month. Continue annual screening. Patient qualifies for LD Lung Cancer Screening - based on age (55-80), absence of active signs and symptoms of lung cancer, smoking pack year history (>30) and if a former smoker - number of years since quitting (<15) Shared decision making was completed which included - benefits and harms of screening, follow-up diagnostic testing, over-diagnosis, false positive rate, and total radiation exposure. Counseling on the importance of adherence to annual lung cancer LDCT screening, impact of co-morbidities and ability or willingness to undergo diagnosis and treatment was reviewed. Counseling on the importance of maintaining cigarette smoking abstinence if former smoker; or the importance of smoking cessation if current smoker and, if appropriate, furnishing of information about tobacco cessation interventions was done. Assessment & Plan (10/26/2022 9:34 AM EST): Due September 2023. Patient qualifies for LD Lung Cancer Screening - based on age (55-80), absence of active signs and symptoms of lung cancer, smoking pack year history (>30) and if a former smoker - number of years since quitting (<15) Shared decision making was completed which included - benefits and harms of screening, follow-up diagnostic testing, over-diagnosis, false positive rate, and total radiation exposure. Counseling on the importance of adherence to annual lung cancer LDCT screening, impact of co-morbidities and ability or willingness to undergo diagnosis and treatment was reviewed. Counseling on the importance of maintaining cigarette smoking abstinence if former smoker; or the importance of smoking cessation if current smoker and, if appropriate, furnishing of information about tobacco cessation interventions was done. Cervical radiculitis 01/12/2021 Assessment & Plan (01/12/2021 12:28 PM EDT): She is having worsening right upper extremity cervical radiculopathy. I reviewed the cervical MRI recently done indicating a C5-6 osteophyte complex and broad-based paracentral disc herniation likely causing her radiculopathy. She will be referred to Dr. Muller for consideration of an epidural and possibly referral to neurosurgery. She agrees with the plan. Hammer toes of both feet 11/19/2019 Tobacco use disorder 11/09/2019 Overview (11/09/2019): Half pack per day since age 15 Assessment & Plan (11/16/2024 2:36 PM EST): Approximately 5 months dedicated tobacco cessation time. Patient intolerant of Chantix, has been reluctant to start Wellbutrin but willing to try. Will start with 1 tablet daily and increase to twice daily dosing after 1 to 2 weeks if tolerates. Can use nicotine replacement and has lozenges on hand. Encouraged to discuss with PCP if additional treatments for general ankle anxiety may be warranted such as add on BuSpar to her citalopram. Assessment & Plan (10/25/2024 11:59 AM EST): Will discuss tobacco sensation further after bronchoscopy. Assessment & Plan (11/25/2023 11:36 AM EST): Continues to smoke now up to a pack per day. Counseling provided about 5 minutes. Will add low-dose bupropion 100 mg twice daily to her regimen. She has no history of seizure. If tolerates after a month, can increase to 150 mg twice daily. Encourage use of nicotine replacement with nicotine lozenges as she is interested in cutting back. Encouraged her to investigate possibility of hypnosis once again given success in the past. Assessment & Plan (10/26/2022 9:33 AM EST): Continues to smoke up to three quarters a pack per day. Tobacco cessation counseling provided. Patient currently not ready. Will continue to encourage and emphasized him portance and benefits of tobacco abstinence. Assessment & Plan (05/18/2021 9:34 AM EDT): Recommend 10 minutes spent dedicated tobacco counseling. Unfortunately, she is not ready to quit but this appears to be more attributing to self-medication with tobacco for her both general as well as situational anxiety. Suggest she discuss with PCP at next visit whether augmenting her psychiatric regimen, currently only with Celexa which she has been on for 20 years, may be of benefit. Assessment & Plan (04/24/2020 8:50 AM EDT): Encouraged ongoing decrease in tobacco use. Encouragement provided. Nicotine lozenges encouraged. Assessment & Plan (11/09/2019 2:03 PM EST): Reports ongoing tobacco use though with interested in stopping. Dedicated tobacco counseling provided for 5 minutes. Recommend combination of nicotine replacement therapy with nicotine lozenges as well as Chantix. Reviewed possible side effects such as altered mood, disturbed sleep, or GI upset. If develops significant side effects, advised decrease dose titration slower than that prescribed on starter pack. Patient can call for recommendations if necessary. Chronic obstructive pulmonary disease 11/07/2019 Assessment & Plan (03/21/2025 5:43 PM EDT): Moderate COPD with significant chronic bronchitis phenotype. COPD much improved on Breztri which she will continue. Given ongoing excess mucus production, encouraged at least once daily Hypersal nebs, twice if able. Once sputum production reduces, can wean frequency. If she were to develop recurrent exacerbations, could consider scheduled azithromycin. Assessment & Plan (11/16/2024 2:35 PM EST): Mild airflow obstruction, improved on Breztri but with chronic bronchitis phenotype likely from ongoing tobacco use. Unfortunately, patient unlikely to quit smoking at this time. Intolerant of Daliresp. Could consider ensifentrine nebs but will try focusing on mucus clearance first. Continue Breztri once or twice daily as tolerates given activating side effects from formoterol Start Hypersal 7% nebs with Aerobika OPEP device twice daily. Will dose with Xopenex. Patient will call with needs assistance on using equipment and can set up an RN visit. At follow-up, will discuss consideration for pulmonary rehab Assessment & Plan (10/25/2024 11:58 AM EST): Moderate COPD with improved symptoms on triple inhaler therapy and PDE 4 inhibitor therapy. Unfortunately, some difficulty tolerating Breztri due to activating symptoms as well as side effects from Roflumilast. RECOMMENDATIONS: Continue Breztri 2 puffs at night and try adding 1 puff in the morning with a spacer Would continue to hold Roflumilast for approximately 1 week. Once feels back to normal, can try reintroducing at half dose, 1/2 tablet or 250 mcg daily. Would continue as long as has no significant side effects and monitor for clinical benefit. After 2 to 4 weeks can always try increasing back to a full tablet. Continue albuterol as needed. Assessment & Plan (06/22/2024 10:12 AM EDT): Moderate obstructive airway disease with mixture chronic bronchitis phenotype. No clear benefit with addition of ICS though in the past has had elevated peripheral eosinophils over 400. She been on steroids since then send otherwise not reliable. Reasonable to try alternative triple inhaler therapy. In addition, meets criteria for trial of Daliresp. PLAN: Discontinue albuterol Start Xopenex 2 puffs with spacer every 4-6 hours as needed Discontinue Trelegy Ellipta Start Breztri 2 puffs twice daily with spacer Recommend trial of Daliresp. Will begin with starter pack scheduling a half a tablet for 2 weeks followed by a full tablet for 3 weeks. If does well can then continue with maintenance dose 500 mcg daily. Reviewed potential side effects including GI upset, diarrhea, headaches and mood changes. Assessment & Plan (11/25/2023 11:35 AM EST): Gradually progressive now moderate COPD with increasing limitation and worsening spirometry. Had previously been well-controlled on an oral Ellipta, but now may benefit from triple therapy, especially given her report of improvement with systemic steroids. Will discontinue Anoro and start low-dose Trelegy Ellipta. Continue albuterol as needed, will refill. No indication for Daliresp at this time but does remain an option. She will check with PCP to ensure she is fully up-to-date with her pneumonia vaccine schedule. Assessment & Plan (10/26/2022 9:34 AM EST): Clinically stable mild COPD though with persistent cough following URI several months ago. Continue Anoro elliptica with as needed albuterol. Given exam and historical response to steroids, will try short course of prednisone taper. Assessment & Plan (05/18/2021 9:35 AM EDT): Stable mild COPD but ongoing tobacco use. Tobacco counseling provided. Continue Anoro Ellipta. Continue albuterol as needed. Assessment & Plan (04/24/2020 8:51 AM EDT): Improved control. Continue Anoro Ellipta. Albuterol as needed and if effective, pre-exercise. Assessment & Plan (11/09/2019 2:02 PM EST): Patient carries a history of COPD. No subjective change following stopping ICS/LABA therapy though does report benefit to albuterol. Recommend continue as needed albuterol for now. Recommend trial of combination L AMA/LABA therapy. Stop Brio Ellipta change to Anoro Ellipta. Sample provided and prescription sent to local pharmacy. Obtain full pulmonary function studies prior to follow-up. Multiple pulmonary nodules d etermined by computed tomography of lung 11/07/2019 Assessment & Plan (06/22/2024 10:12 AM EDT): Overweight follow-up chest CT for lung cancer screening due in October. Assessment & Plan (10/26/2022 9:33 AM EST): Stable multiple pulmonary nodules. Can continue with lung cancer screening studies. Assessment & Plan (05/18/2021 9:34 AM EDT): Will reschedule low-dose CT scan. Assessment & Plan (04/24/2020 8:47 AM EDT): Resolved dominant LLL nodule. Plan continue with annual low-dose CT for lung cancer screening. Patient qualifies for [place] Lung Cancer Screening - based on age (55-80), absence of active signs and symptoms of lung cancer, smoking pack year history (>30) and if a former smoker - number of years since quitting (<15) Shared decision making was completed which included - benefits and harms of screening, follow-up diagnostic testing, over-diagnosis, false positive rate, and total radiation exposure. Counseling on the importance of adherence to annual lung cancer LDCT screening, impact of co-morbidities and ability or willingness to undergo diagnosis and treatment was reviewed. Counseling on the importance of maintaining cigarette smoking abstinence if former smoker; or the importance of smoking cessation if current smoker and, if appropriate, furnishing of information about tobacco cessation interventions was done. Assessment & Plan (11/09/2019 2:00 PM EST): Atypical nodular opacities in the left base. Images reviewed in detail with patient and her daughter. Most likely represent scarring or previous inflammatory changes. However, cannot completely include development of a scar carcinoma. He was agreed therefore will pursue more conservative management with planned 3- month follow-up chest CT. If any growth, consider PET CT scan and/or CT-guided biopsy. Fatigue 10/09/2019 Lumbar radiculitis 10/09/2019 Assessment & Plan (04/08/2021 12:05 PM EDT): Continued lumbar radiculopathy and lumbar enthesopathy. She will continue gabapentin at current dose, amitriptyline at bedtime, hydrocodone as needed and 2.5 mg of prednisone daily. She will receive local injection today due to a flare of her spinal enthesopathy. Assessment & Plan (10/09/2019 12:35 PM EST): Reviewed previous MRI from 2016. She does have several bulging disks and recess stenosis. As of the worsening symptoms I am going to redo an MRI scan today and see whether she is a candidate for referral to spinal service for an injection of cortisone in the epidural space. Lung nodule 10/09/2019 Assessment & Plan (07/08/2021 12:33 PM EDT): Review chest CT showing unchanged 7 mm nodule. Review chest CT and pulmonary function testing showed likelihood of COPD. She will continue to follow-up with pulmonology. No evidence of interstitial lung disease or infection. Assessment & Plan (10/09/2019 12:36 PM EST): She has a long smoking history and continues to smoke. We will obtain a surveillance low dose radiation CT scan of the chest is recommended. S/P right rotator cuff repair 07/04/2019 Assessment & Plan (10/09/2019 12:36 PM EST): Doing well after extensive physical therapy she now has regained most range of motion and has increasingly better strength. I urged compliance with home exercise program. Assessment & Plan (07/04/2019 10:05 AM EDT): 2 months status post right rotator cuff repair. Still with pain. Still doing physical therapy. I gave her reassurance that she will get better range of motion with continued efforts at physical therapy. She is progressing quite nicely. Spinal enthesopathy of lumbar region 04/03/2019 Assessment & Plan (07/08/2021 12:34 PM EDT): Acute and recurrent left-sided spinal enthesopathy will be treated with relative rest, warmth, gabapentin, and local injection therapy today. Assessment & Plan (04/08/2021 12:05 PM EDT): Active spinal enthesopathy in the left iliolumbar ligament of be treated with local injection therapy today. Assessment & Plan (01/12/2021 12:27 PM EDT): Secondary to multilevel lumbar spondylitis she is having a flare of spinal enthesopathy on the left side so an injection will be delivered today into the tendon sheath of the left iliolumbar ligament. Assessment & Plan (11/18/2020 10:35 AM EST): Acute flare will be treated with local injection therapy today. Also after full discussion risk and benefits lumbar radiculopathy will continue to be treated and we will add 100 mg of gabapentin twice daily. Assessment & Plan (10/01/2020 11:29 AM EST): Acute left-sided flare will be treated with local injection today. Relative rest and continuance of current medication. This is the primary source of her pain. We had a discussion today concerning her use of narcotic analgesics. She does feel that she needs in the and, ice small daily dose of oxycodone. She does realize that the ingestion of this medication did get ahead of her in recent months. I will be keeping a close eye on her prescriptions and I agreed to give her enough for every 12 hours dosing for 1 month. She will have a cortisone injection today. Assessment & Plan (07/02/2020 10:25 AM EDT): Chronic recurrent painful spinal enthesopathy and lumbar radiculopathy. MRI of lumbar spine reviewed. We will do injection therapy today. Pain medication unchanged. Follow-up phone call 7 days. If no improvement considering her worsening radiculopathy will get a new MRI scan and refer her to a spinal specialist for further evaluation. Assessment & Plan (04/01/2020 12:01 PM EDT): Despite the injection last month she is continuing to have radicular pain down the left leg. I reviewed with her the MRI indicating an area of lateral recess stenosis and disc bulging at L4-5 and L1-L2. This seems to be mostly in an L5 nerve root distribution. She will receive another injection today. She will avoid any lifting bending or twisting. Follow-up phone call in 5 to 10 days. Referral back to pain management if no improvement. Assessment & Plan (02/18/2020 11:27 AM EDT): Patient is having a flareup of lower lumbar spinal enthesopathy which will be treated with local injection therapy today. She will stay on her pain medications. Assessment & Plan (04/03/2019 9:33 AM EDT): Acute flare of right iliolumbar ligament strain and lumbar spinal enthesopathy will be treated with relative rest, warm packs, and local injection today. Acquired hammertoe of right foot 01/03/2019 Assessment & Plan (10/09/2019 12:34 PM EST): Refer to podiatry and wear well fitting supportive shoes with a large enough toe box to accommodate the osteophytosis and hammertoe deformities. Assessment & Plan (01/03/2019 8:55 AM EDT): Larger shoes with an extra wide with. Suggested new balance. Set up an appointment for her to see roller skate assembler as well. Hallux valgus (acquired), right foot 01/03/2019 Assessment & Plan (07/08/2021 12:34 PM EDT): Pain is worse. I reviewed the consult with Dr. Pearce. She will continue on gabapentin and she will increase prednisone to 5 mg daily. She will increase hydrocodone to 10 mg 3 times daily as needed. Well fitting supportive shoes with good shock absorption and plenty of room in the toe box to accommodate the severe valgus deformity and eventually corrective surgery. Assessment & Plan (10/01/2020 11:29 AM EST): Reviewed Dr. Pearce's note. She would require extensive reconstructive surgery. She will consider this once the epidemic has subsided. She also has some specific needs regarding having coverage for care of her while she is recuperating from this extensive surgery when she decides to do it. In the meantime she will pay attention to foot wear which has been helpful when she chooses shoes that are wide enough to accommodate her osteophytosis and forefoot deformities. Rotator cuff impingement syndrome of left should er 01/03/2019 Assessment & Plan (07/04/2019 10:05 AM EDT): Doing much better with better range of motion. Had an injection by Dr. Morelos. We will continue to do home exercise program. Assessment & Plan (01/03/2019 8:57 AM EDT): New onset. No glenohumeral laxity erythema or effusion. We will inject today under the premise of subacromial impingement and bursitis but if no improvement then will consider MRI. Psoriasis 09/07/2017 Assessment & Plan (07/04/2019 9:32 AM EDT): More active on legs so will refill clobetasol Assessment & Plan (03/14/2018 12:52 PM EDT): She is going to see the garment looper today. She will remain on Enbrel for now. As her psoriatic plaque disease has been worsening the garment looper may recommend a switch her to a biologic medicine to Cosentyx and I would agree with that. We will await their consultation. Assessment & Plan (09/07/2017 10:00 AM EST): Widespread but mostly over the lower extremities. Continues to use topical treatments and I advised consultation with dermatology. Psoriatic arthritis 09/07/2017 Assessment & Plan (06/22/2024 10:12 AM EDT): Given frequent steroid burst, encouraged to follow-up with her anesthesiology fellow to determine if alternative maintenance DMARD therapy is reasonable. 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 She will continue on Enbrel. She will continue on gabapentin. Hydrocodone dose increased at her request. Need to be careful about narcotic addiction and habituation. Laboratory tests will be done and previous lab work was reviewed. No visits with results within 3 Month(s) from this visit. Latest known visit with results is: Hospital Outpatient Visit on 04/07/2021 Component Date Value Ref Range Status SODIUM 04/07/2021 139 133 - 146 mmol/L Final POTASSIUM 04/07/2021 3.7 3.3 - 5.1 mmol/L Final CHLORIDE 04/07/2021 98 96 - 108 mmol/L Final CO2 04/07/2021 28 21 - 35 mmol/L Final BUN 04/07/2021 14 6 - 19 mg/dL Final CREATININE 04/07/2021 0.90 0.5 - 1.5 mg/dL Final GLUCOSE 04/07/2021 134* 70 - 99 mg/dL Final ALBUMIN 04/07/2021 4.4 3.9 - 4.8 g/dL Final TOTAL PROTEIN 04/07/2021 7.9 6.5 - 8.0 g/dL Final CALCIUM 04/07/2021 9.6 8.4 - 10.3 mg/dL Final ALKALINE PHOSPHATASE 04/07/2021 71 39 - 117 U/L Final TOTAL BILIRUBIN 04/07/2021 0.5 0.0 - 1.2 mg/dL Final AST 04/07/2021 33 0 - 37 U/L Final ALT 04/07/2021 13 0 - 40 U/L Final GLOBULIN 04/07/2021 3.5 1 - 4.8 g/dL Final EGFR 04/07/2021 65 >59 mL/min/1.73m2 Final Estimated glomerular filtration rate calculated using the CKD-EPI equation. ANION GAP 04/07/2021 17 10 - 20 mmol/L Final C REACTIVE PROTEIN 04/07/2021 <3.0 0.0 - 4.0 mg/L Final WBC 04/07/2021 9.62 4.00 - 11.00 K/uL Final RBC 04/07/2021 4.94 3.72 - 5.30 M/uL Final HGB 04/07/2021 14.8 11.4 - 15.9 g/dL Final HCT 04/07/2021 45.0 34.2 - 46.8 % Final PLT 04/07/2021 207 140 - 430 K/uL Final MCV 04/07/2021 91.1 78.0 - 97.0 fL Final MCH 04/07/2021 30.0 25.0 - 33.0 pg Final MCHC 04/07/2021 32.9 32.0 - 36.0 g/dL Final RDW 04/07/2021 13.0 11.0 - 16.0 % Final MPV 04/07/2021 10.7 8.4 - 12.8 fl Final NRBC 04/07/2021 0.00 0 /100 WBCs Final ABSOLUTE NRBC 04/07/2021 0.00 0 K/uL Final DIFF METHOD 04/07/2021 Auto Final NEUTS 04/07/2021 72.2 43.0 - 75.0 % Final LYMPHS 04/07/2021 15.6* 18.2 - 47.4 % Final MONOS 04/07/2021 7.9 4.00 - 11.00 % Final EOS 04/07/2021 3.1 0.0 - 8.0 % Final BASOS 04/07/2021 0.7 0.0 - 2.0 % Final Granulocytes, immature (%) 04/07/2021 0.5 0.0 - 0.9 % Final ABSOLUTE NEUTS 04/07/2021 6.94 1.80 - 7.70 K/uL Final ABSOLUTE LYMPHS 04/07/2021 1.50 1.00 - 3.10 K/uL Final ABSOLUTE MONOS 04/07/2021 0.76 0.20 - 0.80 K/uL Final ABSOLUTE EOS 04/07/2021 0.30 0.00 - 0.80 K/uL Final ABSOLUTE BASOS 04/07/2021 0.07 0.00 - 0.09 K/uL Final Granulocytes, immature 04/07/2021 0.05 0.00 - 0.05 K/uL Final TSH 04/07/2021 1.46 0.27 - 4.20 uIU/mL Final Assessment & Plan (04/08/2021 12:06 PM EDT): The articular psoriatic arthritis and plaque psoriasis in a patient doing reasonably well on Enbrel. Consider adding Otezla if plaque psoriasis worsens. Otherwise she is doing well on long-term use of Enbrel. Risks and benefits of continued use of this drug were discussed. Laboratory work was reviewed and a TSH was added at her request. Hospital Outpatient Visit on 04/07/2021 Component Date Value Ref Range Status SODIUM 04/07/2021 139 133 - 146 mmol/L Final POTASSIUM 04/07/2021 3.7 3.3 - 5.1 mmol/L Final CHLORIDE 04/07/2021 98 96 - 108 mmol/L Final CO2 04/07/2021 28 21 - 35 mmol/L Final BUN 04/07/2021 14 6 - 19 mg/dL Final CREATININE 04/07/2021 0.90 0.5 - 1.5 mg/dL Final GLUCOSE 04/07/2021 134* 70 - 99 mg/dL Final ALBUMIN 04/07/2021 4.4 3.9 - 4.8 g/dL Final TOTAL PROTEIN 04/07/2021 7.9 6.5 - 8.0 g/dL Final CALCIUM 04/07/2021 9.6 8.4 - 10.3 mg/dL Final ALKALINE PHOSPHATASE 04/07/2021 71 39 - 117 U/L Final TOTAL BILIRUBIN 04/07/2021 0.5 0.0 - 1.2 mg/dL Final AST 04/07/2021 33 0 - 37 U/L Final ALT 04/07/2021 13 0 - 40 U/L Final GLOBULIN 04/07/2021 3.5 1 - 4.8 g/dL Final EGFR 04/07/2021 65 >59 mL/min/1.73m2 Final Estimated glomerular filtration rate calculated using the CKD-EPI equation. ANION GAP 04/07/2021 17 10 - 20 mmol/L Final C REACTIVE PROTEIN 04/07/2021 <3.0 0.0 - 4.0 mg/L Final WBC 04/07/2021 9.62 4.00 - 11.00 K/uL Final RBC 04/07/2021 4.94 3.72 - 5.30 M/uL Final HGB 04/07/2021 14.8 11.4 - 15.9 g/dL Final HCT 04/07/2021 45.0 34.2 - 46.8 % Final PLT 04/07/2021 207 140 - 430 K/uL Final MCV 04/07/2021 91.1 78.0 - 97.0 fL Final MCH 04/07/2021 30.0 25.0 - 33.0 pg Final MCHC 04/07/2021 32.9 32.0 - 36.0 g/dL Final RDW 04/07/2021 13.0 11.0 - 16.0 % Final MPV 04/07/2021 10.7 8.4 - 12.8 fl Final NRBC 04/07/2021 0.00 0 /100 WBCs Final ABSOLUTE NRBC 04/07/2021 0.00 0 K/uL Final DIFF METHOD 04/07/2021 Auto Final NEUTS 04/07/2021 72.2 43.0 - 75.0 % Final LYMPHS 04/07/2021 15.6* 18.2 - 47.4 % Final MONOS 04/07/2021 7.9 4.00 - 11.00 % Final EOS 04/07/2021 3.1 0.0 - 8.0 % Final BASOS 04/07/2021 0.7 0.0 - 2.0 % Final Granulocytes, immature (%) 04/07/2021 0.5 0.0 - 0.9 % Final ABSOLUTE NEUTS 04/07/2021 6.94 1.80 - 7.70 K/uL Final ABSOLUTE LYMPHS 04/07/2021 1.50 1.00 - 3.10 K/uL Final ABSOLUTE MONOS 04/07/2021 0.76 0.20 - 0.80 K/uL Final ABSOLUTE EOS 04/07/2021 0.30 0.00 - 0.80 K/uL Final ABSOLUTE BASOS 04/07/2021 0.07 0.00 - 0.09 K/uL Final Granulocytes, immature 04/07/2021 0.05 0.00 - 0.05 K/uL Final Assessment & Plan (01/12/2021 12:26 PM EDT): Polyarticular psoriatic arthritis and plaque psoriasis is both painful active stable and improved. She will continue on 2.5 mg of prednisone twice daily and 50 mg of Enbrel weekly. Hydrocodone has been increased from 7.5 twice daily as needed to 7.5 3 times daily as needed. New lab work will be done and previous lab work was reviewed. No visits with results within 3 Month(s) from this visit. Latest known visit with results is: Hospital Outpatient Visit on 10/09/2020 Component Date Value Ref Range Status WBC 10/09/2020 9.76 4.00 - 11.00 K/uL Final Note Reference Range updates to all CBC and Differential results. RBC 10/09/2020 4.85 3.72 - 5.30 M/uL Final HGB 10/09/2020 14.8 11.4 - 15.9 g/dL Final Note updated Reference Ranges for all CBC and Differential results. HCT 10/09/2020 43.9 34.2 - 46.8 % Final PLT 10/09/2020 236 140 - 430 K/uL Final MCV 10/09/2020 90.5 78.0 - 97.0 fL Final MCH 10/09/2020 30.5 25.0 - 33.0 pg Final MCHC 10/09/2020 33.7 32.0 - 36.0 g/dL Final RDW 10/09/2020 13.5 11.0 - 16.0 % Final MPV 10/09/2020 10.2 8.4 - 12.8 fl Final NRBC 10/09/2020 0.00 0 /100 WBCs Final ABSOLUTE NRBC 10/09/2020 0.00 0 K/uL Final DIFF METHOD 10/09/2020 Auto Final NEUTS 10/09/2020 73.0 43.0 - 75.0 % Final LYMPHS 10/09/2020 16.1* 18.2 - 47.4 % Final MONOS 10/09/2020 8.2 4.00 - 11.00 % Final EOS 10/09/2020 1.4 0.0 - 8.0 % Final BASOS 10/09/2020 0.5 0.0 - 2.0 % Final Granulocytes, immature (%) 10/09/2020 0.8 0.0 - 0.9 % Final ABSOLUTE NEUTS 10/09/2020 7.12 1.80 - 7.70 K/uL Final ABSOLUTE LYMPHS 10/09/2020 1.57 1.00 - 3.10 K/uL Final ABSOLUTE MONOS 10/09/2020 0.80 0.20 - 0.80 K/uL Final ABSOLUTE EOS 10/09/2020 0.14 0.00 - 0.80 K/uL Final ABSOLUTE BASOS 10/09/2020 0.05 0.00 - 0.09 K/uL Final Granulocytes, immature 10/09/2020 0.08* 0.00 - 0.05 K/uL Final QUANTIFERON-TB GOLD 10/09/2020 Negative Negative Final Comment: (NOTE) No interferon-gamma response to M. tuberculosis antigens was detected. Infection with M. tuberculosis is unlikely. A single negative result does not exclude infection with M. tuberculosis. In patients at high risk for M.tuberculosis infection, a second test should be considered in accordance with the 2017 ATS/IDSA/CDC Clinical Practice Guidelines for Diagnosis of Tuberculosis in Adults and Children [Shaninsdomoniquen DM et. al. Clin. Infect. Dis. 2017;64(2):111-115]. The reference range for the 'TB1 Ag minus Nil Result' and 'TB2 Ag minus Nil Result' is an Interferon-gamma level <0.35 IU/mL. TB1 AG MINUS NIL 10/09/2020 0.00 IU/mL Final TB2 AG MINUS NIL 10/09/2020 0.00 IU/mL Final MITOGEN MINUS NIL 10/09/2020 7.43 IU/mL Final NIL RESULT 10/09/2020 0.01 IU/mL Final C REACTIVE PROTEIN 10/09/2020 1.2 0.0 - 4.0 mg/L Final ALKALINE PHOSPHATASE 10/09/2020 76 39 - 117 U/L Final TOTAL BILIRUBIN 10/09/2020 0.3 0.0 - 1.2 mg/dL Final DIRECT BILIRUBIN 10/09/2020 <0.2 0 - 0.3 mg/dL Final Bilirubin (Indirect) 10/09/2020 NOT CALCULATED 0 - 1.5 mg/dL Final AST 10/09/2020 21 0 - 37 U/L Final ALT 10/09/2020 14 0 - 40 U/L Final TOTAL PROTEIN 10/09/2020 7.9 6.5 - 8.0 g/dL Final ALBUMIN 10/09/2020 4.6 3.9 - 4.8 g/dL Final GLOBULIN 10/09/2020 3.3 1 - 4.8 g/dL Final A/G Ratio 10/09/2020 1.39 1.00 - 4.80 RATIO Final Assessment & Plan (11/18/2020 10:35 AM EST): Polyarticular psoriatic arthritis and plaque psoriasis under good control with Enbrel. Continue Enbrel 50 mg subcutaneously q. weekly. Long-range risks were explained. Laboratory work was reviewed. Hospital Outpatient Visit on 10/09/2020 Component Date Value Ref Range Status WBC 10/09/2020 9.76 4.00 - 11.00 K/uL Final Note Reference Range updates to all CBC and Differential results. RBC 10/09/2020 4.85 3.72 - 5.30 M/uL Final HGB 10/09/2020 14.8 11.4 - 15.9 g/dL Final Note updated Reference Ranges for all CBC and Differential results. HCT 10/09/2020 43.9 34.2 - 46.8 % Final PLT 10/09/2020 236 140 - 430 K/uL Final MCV 10/09/2020 90.5 78.0 - 97.0 fL Final MCH 10/09/2020 30.5 25.0 - 33.0 pg Final MCHC 10/09/2020 33.7 32.0 - 36.0 g/dL Final RDW 10/09/2020 13.5 11.0 - 16.0 % Final MPV 10/09/2020 10.2 8.4 - 12.8 fl Final NRBC 10/09/2020 0.00 0 /100 WBCs Final ABSOLUTE NRBC 10/09/2020 0.00 0 K/uL Final DIFF METHOD 10/09/2020 Auto Final NEUTS 10/09/2020 73.0 43.0 - 75.0 % Final LYMPHS 10/09/2020 16.1* 18.2 - 47.4 % Final MONOS 10/09/2020 8.2 4.00 - 11.00 % Final EOS 10/09/2020 1.4 0.0 - 8.0 % Final BASOS 10/09/2020 0.5 0.0 - 2.0 % Final Granulocytes, immature (%) 10/09/2020 0.8 0.0 - 0.9 % Final ABSOLUTE NEUTS 10/09/2020 7.12 1.80 - 7.70 K/uL Final ABSOLUTE LYMPHS 10/09/2020 1.57 1.00 - 3.10 K/uL Final ABSOLUTE MONOS 10/09/2020 0.80 0.20 - 0.80 K/uL Final ABSOLUTE EOS 10/09/2020 0.14 0.00 - 0.80 K/uL Final ABSOLUTE BASOS 10/09/2020 0.05 0.00 - 0.09 K/uL Final Granulocytes, immature 10/09/2020 0.08* 0.00 - 0.05 K/uL Final QUANTIFERON-TB GOLD 10/09/2020 Negative Negative Final Comment: (NOTE) No interferon-gamma response to M. tuberculosis antigens was detected. Infection with M. tuberculosis is unlikely. A single negative result does not exclude infection with M. tuberculosis. In patients at high risk for M.tuberculosis infection, a second test should be considered in accordance with the 2017 ATS/IDSA/CDC Clinical Practice Guidelines for Diagnosis of Tuberculosis in Adults and Children [Guerrero DM et. al. Clin. Infect. Dis. 2017;64(2):111-115]. The reference range for the 'TB1 Ag minus Nil Result' and 'TB2 Ag minus Nil Result' is an Interferon-gamma level <0.35 IU/mL. TB1 AG MINUS NIL 10/09/2020 0.00 IU/mL Final TB2 AG MINUS NIL 10/09/2020 0.00 IU/mL Final MITOGEN MINUS NIL 10/09/2020 7.43 IU/mL Final NIL RESULT 10/09/2020 0.01 IU/mL Final C REACTIVE PROTEIN 10/09/2020 1.2 0.0 - 4.0 mg/L Final ALKALINE PHOSPHATASE 10/09/2020 76 39 - 117 U/L Final TOTAL BILIRUBIN 10/09/2020 0.3 0.0 - 1.2 mg/dL Final DIRECT BILIRUBIN 10/09/2020 <0.2 0 - 0.3 mg/dL Final Bilirubin (Indirect) 10/09/2020 NOT CALCULATED 0 - 1.5 mg/dL Final AST 10/09/2020 21 0 - 37 U/L Final ALT 10/09/2020 14 0 - 40 U/L Final TOTAL PROTEIN 10/09/2020 7.9 6.5 - 8.0 g/dL Final ALBUMIN 10/09/2020 4.6 3.9 - 4.8 g/dL Final GLOBULIN 10/09/2020 3.3 1 - 4.8 g/dL Final A/G Ratio 10/09/2020 1.39 1.00 - 4.80 RATIO Final Hospital Outpatient Visit on 08/25/2020 Component Date Value Ref Range Status SODIUM 08/25/2020 137 133 - 146 mmol/L Final CHLORIDE 08/25/2020 99 96 - 108 mmol/L Final POTASSIUM 08/25/2020 4.0 3.3 - 5.1 mmol/L Final CO2 08/25/2020 27 21 - 35 mmol/L Final BUN 08/25/2020 18 6 - 19 mg/dL Final CREATININE 08/25/2020 0.90 0.5 - 1.5 mg/dL Final GLUCOSE 08/25/2020 81 70 - 99 mg/dL Final CALCIUM 08/25/2020 9.6 8.4 - 10.3 mg/dL Final EGFR 08/25/2020 65 >59 mL/min/1.73m2 Final Estimated glomerular filtration rate calculated using the CKD-EPI equation. ANION GAP 08/25/2020 15 10 - 20 mmol/L Final URINE MICROALBUMIN 08/25/2020 <1.2 0 - 2.3 mg/dL Final URINE CREATININE 08/25/2020 31 mg/dL Final MICROALB/CRE RATIO 08/25/2020 NOT CALCULATED 0 - 20 mg/g Cre Final due to Microalbumin <1.2 Assessment & Plan (10/01/2020 11:30 AM EST): Polyarticular psoriatic arthritis without extra-articular manifestations of disease is actually reasonably well controlled on monotherapy with Enbrel along with her plaque psoriasis. Risks and benefits of prolonged use of Enbrel were discussed. Laboratory work will be done including a quant to [facility] whole blood assay for TB. Previous lab work was reviewed. Hospital Outpatient Visit on 08/25/2020 Component Date Value Ref Range Status SODIUM 08/25/2020 137 133 - 146 mmol/L Final CHLORIDE 08/25/2020 99 96 - 108 mmol/L Final POTASSIUM 08/25/2020 4.0 3.3 - 5.1 mmol/L Final CO2 08/25/2020 27 21 - 35 mmol/L Final BUN 08/25/2020 18 6 - 19 mg/dL Final CREATININE 08/25/2020 0.90 0.5 - 1.5 mg/dL Final GLUCOSE 08/25/2020 81 70 - 99 mg/dL Final CALCIUM 08/25/2020 9.6 8.4 - 10.3 mg/dL Final EGFR 08/25/2020 65 >59 mL/min/1.73m2 Final Estimated glomerular filtration rate calculated using the CKD-EPI equation. ANION GAP 08/25/2020 15 10 - 20 mmol/L Final URINE MICROALBUMIN 08/25/2020 <1.2 0 - 2.3 mg/dL Final URINE CREATININE 08/25/2020 31 mg/dL Final MICROALB/CRE RATIO 08/25/2020 NOT CALCULATED 0 - 20 mg/g Cre Final due to Microalbumin <1.2 Hospital Outpatient Visit on 07/03/2020 Component Date Value Ref Range Status POTASSIUM 07/03/2020 3.4 3.3 - 5.1 mmol/L Final Assessment & Plan (07/30/2020 11:02 AM EDT): Patient has chronic painful psoriatic arthritis which affects her feet as well as her spine and all of her peripheral joints both small and large. She did see some improvement with prednisone but it gave her insomnia but the amitriptyline helped. Now that she is down to a lower dose of prednisone she is doing better. We will keep her on 5 mg daily for now. She will avoid NSAIDs given her altered renal function we will get some light on this after she sees the compliance and control analyst. She may start turmeric and glucosamine. I gave her a schedule for tapering off oxycodone. She will maintain 5 mg in the morning and night and taper by 2-1/2 mg daily every week till off. We spoke about the short-term use of narcotic analgesics if she has orthopedic foot surgery but I do not think that will be a problem. We will have a flu vaccination today. All of her questions were answered. 28 minutes was spent with this patient of which half was spent in counseling her regarding management of her pain and withdrawal from oxycodone. Devious lab work was reviewed. Hospital Outpatient Visit on 07/03/2020 Component Date Value Ref Range Status POTASSIUM 07/03/2020 3.4 3.3 - 5.1 mmol/L Final Hospital Outpatient Visit on 07/02/2020 Component Date Value Ref Range Status SODIUM 07/02/2020 140 133 - 146 mmol/L Final POTASSIUM 07/02/2020 3.1* 3.3 - 5.1 mmol/L Final CHLORIDE 07/02/2020 94* 96 - 108 mmol/L Final CO2 07/02/2020 32 21 - 35 mmol/L Final BUN 07/02/2020 21* 6 - 19 mg/dL Final CREATININE 07/02/2020 1.40 0.5 - 1.5 mg/dL Final GLUCOSE 07/02/2020 105* 70 - 99 mg/dL Final ALBUMIN 07/02/2020 4.7 3.9 - 4.8 g/dL Final TOTAL PROTEIN 07/02/2020 7.6 6.5 - 8.0 g/dL Final CALCIUM 07/02/2020 10.1 8.4 - 10.3 mg/dL Final ALKALINE PHOSPHATASE 07/02/2020 72 39 - 117 U/L Final TOTAL BILIRUBIN 07/02/2020 0.3 0.0 - 1.2 mg/dL Final AST 07/02/2020 31 0 - 37 U/L Final ALT 07/02/2020 15 0 - 40 U/L Final GLOBULIN 07/02/2020 2.9 1 - 4.8 g/dL Final EGFR 07/02/2020 38* >59 mL/min/1.73m2 Final Estimated glomerular filtration rate calculated using the CKD-EPI equation. ANION GAP 07/02/2020 17 10 - 20 mmol/L Final C REACTIVE PROTEIN 07/02/2020 1.6 0.0 - 4.0 mg/L Final WBC 07/02/2020 8.02 4.00 - 11.00 K/uL Final Note Reference Range updates to all CBC and Differential results. RBC 07/02/2020 5.04 3.72 - 5.30 M/uL Final HGB 07/02/2020 14.8 11.4 - 15.9 g/dL Final Note updated Reference Ranges for all CBC and Differential results. HCT 07/02/2020 45.0 34.2 - 46.8 % Final PLT 07/02/2020 267 140 - 430 K/uL Final MCV 07/02/2020 89.3 78.0 - 97.0 fL Final MCH 07/02/2020 29.4 25.0 - 33.0 pg Final MCHC 07/02/2020 32.9 32.0 - 36.0 g/dL Final RDW 07/02/2020 13.6 11.0 - 16.0 % Final MPV 07/02/2020 10.8 8.4 - 12.8 fl Final NRBC 07/02/2020 0.00 0 /100 WBCs Final ABSOLUTE NRBC 07/02/2020 0.00 0 K/uL Final DIFF METHOD 07/02/2020 Auto Final NEUTS 07/02/2020 55.2 43.0 - 75.0 % Final LYMPHS 07/02/2020 27.3 18.2 - 47.4 % Final MONOS 07/02/2020 10.5 4.00 - 11.00 % Final EOS 07/02/2020 5.7 0.0 - 8.0 % Final BASOS 07/02/2020 0.6 0.0 - 2.0 % Final Granulocytes, immature (%) 07/02/2020 0.7 0.0 - 0.9 % Final ABSOLUTE NEUTS 07/02/2020 4.42 1.80 - 7.70 K/uL Final ABSOLUTE LYMPHS 07/02/2020 2.19 1.00 - 3.10 K/uL Final ABSOLUTE MONOS 07/02/2020 0.84* 0.20 - 0.80 K/uL Final ABSOLUTE EOS 07/02/2020 0.46 0.00 - 0.80 K/uL Final ABSOLUTE BASOS 07/02/2020 0.05 0.00 - 0.09 K/uL Final Granulocytes, immature 07/02/2020 0.06* 0.00 - 0.05 K/uL Final Assessment & Plan (07/02/2020 10:25 AM EDT): Polyarticular erosive psoriatic arthritis and plaque psoriasis being treated with Enbrel. Weekly injections will continue unchanged. Immunosuppression discussed. Naproxen discontinued at her request and after full discussion risk and benefits she will do a trial of etodolac 400 mg twice daily as needed. Lab work to be done today and previous lab work was reviewed. She will have a flu vaccine next week. No visits with results within 3 Month(s) from this visit. Latest known visit with results is: Hospital Outpatient Visit on 04/01/2020 Component Date Value Ref Range Status FEV1 04/01/2020 1.70 liters Final FVC 04/01/2020 2.62 liters Final FEV1/FVC 04/01/2020 65 % Final TLC 04/01/2020 4.68 liters Final DLCO 04/01/2020 15.1 ml/mmHg sec Final Assessment & Plan (04/01/2020 12:02 PM EDT): Active but stable with some increase in plaque psoriasis but psoriatic arthritis is stable. Continue Enbrel 50 mg weekly. Continue naproxen sodium 500 mg twice daily. Lab work reviewed. Hospital Outpatient Visit on 02/21/2020 Component Date Value Ref Range Status Body Surface Area 02/21/2020 1.7 m2 Final Height 02/21/2020 160 cm Final Weight 02/21/2020 71 kg Final Systolic BP 02/21/2020 160 mmHg Final Diastolic BP 02/21/2020 69 mmHg Final Left Atrium Dimension Anterior-Pos* 02/21/2020 21 15 - 40 mm Final Aortic Valve Mean Gradient 02/21/2020 5 mmHg Final Aortic Valve Time Velocity Integral 02/21/2020 325 mm Final Aortic Valve Peak Velocity 02/21/2020 159.0 cm/s Final Aortic Valve Peak Gradient 02/21/2020 10 mmHg Final Aortic Sinus Diameter 02/21/2020 22 mm Final Ascending Aorta Diameter 02/21/2020 30 mm Final Inferior Vena Cava Diameter 02/21/2020 15 0.0 - 21 mm Final Interventricular Septum Thickness 02/21/2020 11 mm Final Left Ventricle Internal Diameter E* 02/21/2020 42 37 - 52 mm Final Left Ventricle Internal Diameter E* 02/21/2020 26 22 - 35 mm Final Left Ventricular Outflow Tract Felicia* 02/21/2020 18.0 mm Final LVOT VTI REST 02/21/2020 233 mm Final Left Ventricular Outflow Tract Davis* 02/21/2020 1.1 m/s Final Left Ventricular Outflow Tract Harry* 02/21/2020 5 mmHg Final Left Ventricular Posterior Wall Th* 02/21/2020 9 mm Final Ejection Fraction 02/21/2020 66 50 - 75 Percent Final Mitral Valve Deceleration Time 02/21/2020 176 ms Final Mitral Valve A Wave Speed 02/21/2020 99.0 cm/s Final Mitral Valve E Wave Speed 02/21/2020 57.8 cm/s Final Right Ventricle Basal Diameter 02/21/2020 27.9 25 - 41 mm Final Tricuspid Valve Peak Velocity 02/21/2020 2.5 m/s Final Raw LV EF% 02/21/2020 62 % Final Right Ventricle Peak Systolic Pres* 02/21/2020 28 mmHg Final Right Atrium Pressure Estimated 02/21/2020 3 mmHg Final Right Ventricle to Right Atrium Pr* 02/21/2020 25 mmHg Final Aortic Valve Sinus Index 1 02/21/2020 13 19 - 27 mm Final Ascending Aorta Diameter 02/21/2020 18 mm Final Aortic Sinus Index 02/21/2020 13 mm Final Ascending Aorta Index 02/21/2020 18 mm Final Left Atrial Volume 02/21/2020 36 mL Final Left Atrial Volume Index 02/21/2020 21.18 mL/m2 Final Hospital Outpatient Visit on 02/18/2020 Component Date Value Ref Range Status NT-PROBNP 02/18/2020 70 0 - 125 pg/mL Final SODIUM 02/18/2020 137 133 - 146 mmol/L Final POTASSIUM 02/18/2020 4.3 3.3 - 5.1 mmol/L Final CHLORIDE 02/18/2020 99 96 - 108 mmol/L Final CO2 02/18/2020 27 21 - 35 mmol/L Final BUN 02/18/2020 14 6 - 19 mg/dL Final CREATININE 02/18/2020 1.20 0.5 - 1.5 mg/dL Final GLUCOSE 02/18/2020 105* 70 - 99 mg/dL Final ALBUMIN 02/18/2020 4.2 3.9 - 4.8 g/dL Final TOTAL PROTEIN 02/18/2020 7.2 6.5 - 8.0 g/dL Final CALCIUM 02/18/2020 9.8 8.4 - 10.3 mg/dL Final ALKALINE PHOSPHATASE 02/18/2020 75 39 - 117 U/L Final TOTAL BILIRUBIN 02/18/2020 0.3 0.0 - 1.2 mg/dL Final AST 02/18/2020 29 0 - 37 U/L Final ALT 02/18/2020 15 0 - 40 U/L Final GLOBULIN 02/18/2020 3.0 1 - 4.8 g/dL Final EGFR 02/18/2020 46* >59 mL/min/1.73m2 Final If patient is black, multiply result by 1.159. Estimated glomerular filtration rate calculated using the CKD-EPI equation. ANION GAP 02/18/2020 15 10 - 20 mmol/L Final WBC 02/18/2020 5.74 4.00 - 11.00 K/uL Final Note Reference Range updates to all CBC and Differential results. RBC 02/18/2020 4.41 3.72 - 5.30 M/uL Final HGB 02/18/2020 12.5 11.4 - 15.9 g/dL Final Note updated Reference Ranges for all CBC and Differential results. HCT 02/18/2020 38.4 34.2 - 46.8 % Final PLT 02/18/2020 278 140 - 430 K/uL Final MCV 02/18/2020 87.1 78.0 - 97.0 fL Final MCH 02/18/2020 28.3 25.0 - 33.0 pg Final MCHC 02/18/2020 32.6 32.0 - 36.0 g/dL Final RDW 02/18/2020 13.4 11.0 - 16.0 % Final MPV 02/18/2020 9.8 8.4 - 12.8 fl Final NRBC 02/18/2020 0.00 0 /100 WBCs Final ABSOLUTE NRBC 02/18/2020 0.00 0 K/uL Final Hospital Outpatient Visit on 02/05/2020 Component Date Value Ref Range Status FERRITIN 02/05/2020 31 13 - 150 ug/L Final IRON 02/05/2020 50 30 - 160 ug/dL Final IRON BINDING CAPACITY 02/05/2020 347 228 - 428 ug/dL Final TRANSFERRIN SATURAT. 02/05/2020 14* 15 - 50 % Final VITAMIN B12 02/05/2020 362 232 - 1,245 pg/mL Final WBC 02/05/2020 8.89 4.00 - 11.00 K/uL Final Note Reference Range updates to all CBC and Differential results. RBC 02/05/2020 4.48 3.72 - 5.30 M/uL Final HGB 02/05/2020 13.0 11.4 - 15.9 g/dL Final Note updated Reference Ranges for all CBC and Differential results. HCT 02/05/2020 39.8 34.2 - 46.8 % Final PLT 02/05/2020 250 140 - 430 K/uL Final MCV 02/05/2020 88.8 78.0 - 97.0 fL Final MCH 02/05/2020 29.0 25.0 - 33.0 pg Final MCHC 02/05/2020 32.7 32.0 - 36.0 g/dL Final RDW 02/05/2020 13.8 11.0 - 16.0 % Final MPV 02/05/2020 10.1 8.4 - 12.8 fl Final NRBC 02/05/2020 0.00 0 /100 WBCs Final ABSOLUTE NRBC 02/05/2020 0.00 0 K/uL Final DIFF METHOD 02/05/2020 Auto Final NEUTS 02/05/2020 64.2 43.0 - 75.0 % Final LYMPHS 02/05/2020 19.3 18.2 - 47.4 % Final MONOS 02/05/2020 12.3* 4.00 - 11.00 % Final EOS 02/05/2020 3.1 0.0 - 8.0 % Final BASOS 02/05/2020 0.7 0.0 - 2.0 % Final Granulocytes, immature (%) 02/05/2020 0.4 0.0 - 0.9 % Final ABSOLUTE NEUTS 02/05/2020 5.70 1.80 - 7.70 K/uL Final ABSOLUTE LYMPHS 02/05/2020 1.72 1.00 - 3.10 K/uL Final ABSOLUTE MONOS 02/05/2020 1.09* 0.20 - 0.80 K/uL Final ABSOLUTE EOS 02/05/2020 0.28 0.00 - 0.80 K/uL Final ABSOLUTE BASOS 02/05/2020 0.06 0.00 - 0.09 K/uL Final Granulocytes, immature 02/05/2020 0.04 0.00 - 0.05 K/uL Final SODIUM 02/05/2020 141 133 - 146 mmol/L Final POTASSIUM 02/05/2020 3.9 3.3 - 5.1 mmol/L Final CHLORIDE 02/05/2020 101 96 - 108 mmol/L Final CO2 02/05/2020 30 21 - 35 mmol/L Final BUN 02/05/2020 13 6 - 19 mg/dL Final CREATININE 02/05/2020 1.00 0.5 - 1.5 mg/dL Final GLUCOSE 02/05/2020 72 70 - 99 mg/dL Final ALBUMIN 02/05/2020 4.1 3.9 - 4.8 g/dL Final TOTAL PROTEIN 02/05/2020 7.2 6.5 - 8.0 g/dL Final CALCIUM 02/05/2020 9.7 8.4 - 10.3 mg/dL Final ALKALINE PHOSPHATASE 02/05/2020 83 39 - 117 U/L Final TOTAL BILIRUBIN 02/05/2020 0.3 0.0 - 1.2 mg/dL Final AST 02/05/2020 27 0 - 37 U/L Final ALT 02/05/2020 15 0 - 40 U/L Final GLOBULIN 02/05/2020 3.1 1 - 4.8 g/dL Final EGFR 02/05/2020 57* >59 mL/min/1.73m2 Final If patient is black, multiply result by 1.159. Estimated glomerular filtration rate calculated using the CKD-EPI equation. ANION GAP 02/05/2020 14 10 - 20 mmol/L Final Assessment & Plan (10/09/2019 12:34 PM EST): Patient's polyarticular psoriatic arthritis affecting both large and small joints in the upper and lower portions of the body will continue to be treated with Enbrel at 50 mg weekly, stopping medication only for infection or on my direction. Laboratory work will be checked today and previous lab work was reviewed. I also refilled her naproxen be taken at 500 g twice daily as needed. Hospital Outpatient Visit on 09/24/2019 Component Date Value Ref Range Status 25 OH VIT D (TOTAL) 09/24/2019 35 30 - 60 ng/mL Final HDL 09/24/2019 60 mg/dL Final Comment: Interpretation <40 mg/dL: Low HDL cholesterol (major risk factor for CHD) Greater than or equal to 60 mg/dL: High HDL cholesterol ( negative risk factor for CHD) HDL - cholesterol is affected by a number of factors, e.g. smoking, excerise, hormones, sex and age. CHOLESTEROL 09/24/2019 199 0 - 240 mg/dL Final TRIGLYCERIDES 09/24/2019 109 30 - 160 mg/dL Final LDL 09/24/2019 117 50 - 129 mg/dL Final Comment: LDL levels in terms of risk for coronary heart disease: <100 mg/dL: Optimal 100-129 mg/dL: Near or above optimal 130-159 mg/dL: Borderline high 160-189 mg/dL: High >190 mg/dL: Very High CARDIAC RISK RATIO 09/24/2019 3.3 3.3 - 4.4 Final SODIUM 09/24/2019 136 133 - 146 mmol/L Final POTASSIUM 09/24/2019 3.7 3.3 - 5.1 mmol/L Final CHLORIDE 09/24/2019 96 96 - 108 mmol/L Final CO2 09/24/2019 30 21 - 35 mmol/L Final BUN 09/24/2019 12 6 - 19 mg/dL Final CREATININE 09/24/2019 0.90 0.5 - 1.5 mg/dL Final GLUCOSE 09/24/2019 98 70 - 99 mg/dL Final ALBUMIN 09/24/2019 4.1 3.9 - 4.8 g/dL Final TOTAL PROTEIN 09/24/2019 7.2 6.5 - 8.0 g/dL Final CALCIUM 09/24/2019 9.6 8.4 - 10.3 mg/dL Final ALKALINE PHOSPHATASE 09/24/2019 77 39 - 117 U/L Final TOTAL BILIRUBIN 09/24/2019 0.5 0.0 - 1.2 mg/dL Final AST 09/24/2019 24 0 - 37 U/L Final ALT 09/24/2019 12 0 - 40 U/L Final GLOBULIN 09/24/2019 3.1 1 - 4.8 g/dL Final EGFR 09/24/2019 66 >59 mL/min/1.73m2 Final If patient is black, multiply result by 1.159. Estimated glomerular filtration rate calculated using the CKD-EPI equation. ANION GAP 09/24/2019 14 10 - 20 mmol/L Final WBC 09/24/2019 5.67 3.40 - 11.20 K/uL Final RBC 09/24/2019 4.57 3.80 - 4.80 M/uL Final HGB 09/24/2019 13.5 12.0 - 15.0 g/dL Final HCT 09/24/2019 40.1 36.0 - 46.0 % Final PLT 09/24/2019 281 130 - 400 K/uL Final MCV 09/24/2019 87.7 79.0 - 98.0 fL Final MCH 09/24/2019 29.5 27.0 - 34.8 pg Final MCHC 09/24/2019 33.7 31.5 - 36.0 g/dL Final RDW 09/24/2019 12.6 10.8 - 14.6 % Final MPV 09/24/2019 10.1 9.4 - 12.4 fl Final NRBC 09/24/2019 0.00 0.00 /100 WBCs Final ABSOLUTE NRBC 09/24/2019 0.00 0.00 K/uL Final DIFF METHOD 09/24/2019 Auto Final NEUTS 09/24/2019 53.5 45.30 - 77.70 % Final LYMPHS 09/24/2019 27.7 12.30 - 39.70 % Final MONOS 09/24/2019 12.0 4.10 - 12.80 % Final EOS 09/24/2019 5.3 0 - 7.2 % Final BASOS 09/24/2019 1.1 0 - 2.80 % Final Granulocytes, immature (%) 09/24/2019 0.4 0.0 - 0.9 % Final ABSOLUTE NEUTS 09/24/2019 3.04 1.40 - 7.70 K/uL Final ABSOLUTE LYMPHS 09/24/2019 1.57 0.60 - 3.20 K/uL Final ABSOLUTE MONOS 09/24/2019 0.68* 0.11 - 0.59 K/uL Final ABSOLUTE EOS 09/24/2019 0.30 0.01 - 0.50 K/uL Final ABSOLUTE BASOS 09/24/2019 0.06 0.00 - 0.08 K/uL Final Granulocytes, immature 09/24/2019 0.02 0.00 - 0.05 K/uL Final HCV 09/24/2019 NON-REACTIVE NON-REACTIVE Final Assessment & Plan (07/04/2019 10:06 AM EDT): Polyarticular psoriatic arthritis with plaque psoriasis is active but stable. She will continue on Enbrel which she stopped temporarily for surgery but now that she is in the clear she may stay on this once weekly. There is no injection site reactions. She understands the need to stop the medication for any fever chills or signs of infection. She will have a flu vaccine and speak to her primary care physician about pneumonia vaccine. Laboratory work was checked. No visits with results within 3 Month(s) from this visit. Latest known visit with results is: Hospital Outpatient Visit on 03/27/2019 Component Date Value Ref Range Status Body Surface Area 03/27/2019 1.7 m2 Final Height 03/27/2019 160 m Final Weight 03/27/2019 70 kg Final Systolic BP 03/27/2019 120 mmHg Final Diastolic BP 03/27/2019 82 mmHg Final Interventricular Septum Thickness 03/27/2019 8 mm Final Left Ventricle Internal Diameter E* 03/27/2019 46 37 - 52 mm Final Left Ventricle Internal Diameter E* 03/27/2019 25 22 - 35 mm Final Left Ventricular Outflow Tract Felicia* 03/27/2019 19.0 mm Final LVOT VTI REST 03/27/2019 233.00 mm Final Left Ventricular Outflow Tract Davis* 03/27/2019 1.0 m/s Final Left Ventricular Outflow Tract Harry* 03/27/2019 4.00 mmHg Final Left Ventricular Posterior Wall Th* 03/27/2019 8 mm Final Ejection Fraction 03/27/2019 66 50 - 75 Percent Final Left Atrium Dimension Anterior-Pos* 03/27/2019 29 15 - 40 mm Final Aortic Valve Peak Velocity 03/27/2019 147.0 cm/s Final Aortic Valve Peak Gradient 03/27/2019 9.00 mmHg Final Aortic Sinus Diameter 03/27/2019 25 mm Final Ascending Aorta Diameter 03/27/2019 31 mm Final Inferior Vena Cava Diameter 03/27/2019 13 0.0 - 21 mm Final Mitral Valve Deceleration Time 03/27/2019 144.00 ms Final Mitral Valve A Wave Speed 03/27/2019 90.7 cm/s Final Mitral Valve E Wave Speed 03/27/2019 93.1 cm/s Final Right Ventricle Basal Diameter 03/27/2019 30.70 25 - 41 mm Final Tricuspid Valve Peak Velocity 03/27/2019 2.6 m/s Final Raw LV EF% 03/27/2019 70 % Final Left Atrial Volume 03/27/2019 43 mL Final Left Atrial Volume Index 03/27/2019 25.29 mL/m2 Final Right Ventricle Peak Systolic Pres* 03/27/2019 30 mmHg Final Right Atrium Pressure Estimated 03/27/2019 3 mmHg Final Right Ventricle to Right Atrium Pr* 03/27/2019 27 mmHg Final Aortic Valve Sinus Index 1 03/27/2019 15 19 - 27 mm Final Ascending Aorta Diameter 03/27/2019 18 mm Final Aortic Sinus Diameter 03/27/2019 15 mm Final Ascending Aorta Index 03/27/2019 18 mm Final Assessment & Plan (04/03/2019 9:34 AM EDT): Hospital Outpatient Visit on 03/27/2019 Component Date Value Ref Range Status Body Surface Area 03/27/2019 1.7 m2 Final Height 03/27/2019 160 m Final Weight 03/27/2019 70 kg Final Systolic BP 03/27/2019 120 mmHg Final Diastolic BP 03/27/2019 82 mmHg Final Interventricular Septum Thickness 03/27/2019 8 mm Final Left Ventricle Internal Diameter E* 03/27/2019 46 37 - 52 mm Final Left Ventricle Internal Diameter E* 03/27/2019 25 22 - 35 mm Final Left Ventricular Outflow Tract Felicia* 03/27/2019 19.0 mm Final LVOT VTI REST 03/27/2019 233.00 mm Final Left Ventricular Outflow Tract Davis* 03/27/2019 1.0 m/s Final Left Ventricular Outflow Tract Harry* 03/27/2019 4.00 mmHg Final Left Ventricular Posterior Wall Th* 03/27/2019 8 mm Final Ejection Fraction 03/27/2019 66 50 - 75 Percent Final Left Atrium Dimension Anterior-Pos* 03/27/2019 29 15 - 40 mm Final Aortic Valve Peak Velocity 03/27/2019 147.0 cm/s Final Aortic Valve Peak Gradient 03/27/2019 9.00 mmHg Final Aortic Sinus Diameter 03/27/2019 25 mm Final Ascending Aorta Diameter 03/27/2019 31 mm Final Inferior Vena Cava Diameter 03/27/2019 13 0.0 - 21 mm Final Mitral Valve Deceleration Time 03/27/2019 144.00 ms Final Mitral Valve A Wave Speed 03/27/2019 90.7 cm/s Final Mitral Valve E Wave Speed 03/27/2019 93.1 cm/s Final Right Ventricle Basal Diameter 03/27/2019 30.70 25 - 41 mm Final Tricuspid Valve Peak Velocity 03/27/2019 2.6 m/s Final Raw LV EF% 03/27/2019 70 % Final Left Atrial Volume 03/27/2019 43 mL Final Left Atrial Volume Index 03/27/2019 25.29 mL/m2 Final Right Ventricle Peak Systolic Pres* 03/27/2019 30 mmHg Final Right Atrium Pressure Estimated 03/27/2019 3 mmHg Final Right Ventricle to Right Atrium Pr* 03/27/2019 27 mmHg Final Aortic Valve Sinus Index 1 03/27/2019 15 19 - 27 mm Final Ascending Aorta Diameter 03/27/2019 18 mm Final Aortic Sinus Diameter 03/27/2019 15 mm Final Ascending Aorta Index 03/27/2019 18 mm Final Hospital Outpatient Visit on 03/27/2019 Component Date Value Ref Range Status Max BP Systolic 03/27/2019 120 mmHg Final Max BP Diastolic 03/27/2019 68 mmHg Final Max HR 03/27/2019 99 BPM Final Resting HR 03/27/2019 69 BPM Final Resting BP Systolic 03/27/2019 120 mmHg Final Resting BP Diastolic 03/27/2019 60 mmHg Final Peak METS 03/27/2019 1.0 METS Final Peak HR 03/27/2019 92 BPM Final Hospital Outpatient Visit on 03/15/2019 Component Date Value Ref Range Status Max BP Systolic 03/15/2019 162 mmHg Final Max BP Diastolic 03/15/2019 84 mmHg Final Max HR 03/15/2019 121 BPM Final Resting HR 03/15/2019 86 BPM Final Resting BP Systolic 03/15/2019 110 mmHg Final Resting BP Diastolic 03/15/2019 70 mmHg Final Peak METS 03/15/2019 9.6 METS Final Peak HR 03/15/2019 118 BPM Final Office Visit on 03/07/2019 Component Date Value Ref Range Status Specimen Source/ Description 03/07/2019 NASAL AXILLA NASAL Final Special Requests 03/07/2019 None Final Culture/test 03/07/2019 No MRSA or MSSA isolated Final Report Status 03/07/2019 03/09/2019 FINAL Final Hospital Outpatient Visit on 01/03/2019 Component Date Value Ref Range Status TSH 01/03/2019 2.49 0.27 - 4.20 uIU/mL Final SODIUM 01/03/2019 140 133 - 146 mmol/L Final POTASSIUM 01/03/2019 3.4 3.3 - 5.1 mmol/L Final CHLORIDE 01/03/2019 97 96 - 108 mmol/L Final CO2 01/03/2019 31 21 - 35 mmol/L Final BUN 01/03/2019 15 6 - 19 mg/dL Final CREATININE 01/03/2019 1.00 0.5 - 1.5 mg/dL Final GLUCOSE 01/03/2019 71 70 - 99 mg/dL Final ALBUMIN 01/03/2019 4.7 3.9 - 4.8 g/dL Final TOTAL PROTEIN 01/03/2019 7.3 6.5 - 8.0 g/dL Final CALCIUM 01/03/2019 9.5 8.4 - 10.3 mg/dL Final ALKALINE PHOSPHATASE 01/03/2019 71 39 - 117 U/L Final TOTAL BILIRUBIN 01/03/2019 0.4 0.0 - 1.2 mg/dL Final Comment: Results from certain multiple myeloma patients may show a positive bias in recovery. Not all multiple myeloma patients show the bias and severity of the bias may vary between patients. In very rare cases, gammopathy, in particular type IgM (Waldenstrom's macroglobulinemia), may cause unreliable results. AST 01/03/2019 17 0 - 37 U/L Final ALT 01/03/2019 10 0 - 40 U/L Final GLOBULIN 01/03/2019 2.6 1 - 4.8 g/dL Final EGFR 01/03/2019 58* >59 mL/min/1.73m2 Final If patient is black, multiply result by 1.159. Estimated glomerular filtration rate calculated using the CKD-EPI equation. ANION GAP 01/03/2019 15 10 - 20 mmol/L Final C REACTIVE PROTEIN 01/03/2019 3.2 0.0 - 4.0 mg/L Final WBC 01/03/2019 6.80 3.40 - 11.20 K/uL Final RBC 01/03/2019 4.60 3.80 - 4.80 M/uL Final HGB 01/03/2019 13.6 12.0 - 15.0 g/dL Final HCT 01/03/2019 40.9 36.0 - 46.0 % Final PLT 01/03/2019 324 130 - 400 K/uL Final MCV 01/03/2019 88.9 79.0 - 98.0 fL Final MCH 01/03/2019 29.6 27.0 - 34.8 pg Final MCHC 01/03/2019 33.3 31.5 - 36.0 g/dL Final RDW 01/03/2019 13.3 10.8 - 14.6 % Final MPV 01/03/2019 9.5 9.4 - 12.4 fl Final NRBC 01/03/2019 0.00 0.00 /100 WBCs Final ABSOLUTE NRBC 01/03/2019 0.00 0.00 K/uL Final DIFF METHOD 01/03/2019 Auto Final NEUTS 01/03/2019 52.6 45.30 - 77.70 % Final LYMPHS 01/03/2019 31.2 12.30 - 39.70 % Final MONOS 01/03/2019 11.8 4.10 - 12.80 % Final EOS 01/03/2019 3.5 0 - 7.2 % Final BASOS 01/03/2019 0.6 0 - 2.80 % Final Granulocytes, immature (%) 01/03/2019 0.3 0.0 - 0.9 % Final ABSOLUTE NEUTS 01/03/2019 3.58 1.40 - 7.70 K/uL Final ABSOLUTE LYMPHS 01/03/2019 2.12 0.60 - 3.20 K/uL Final ABSOLUTE MONOS 01/03/2019 0.80* 0.11 - 0.59 K/uL Final ABSOLUTE EOS 01/03/2019 0.24 0.01 - 0.50 K/uL Final ABSOLUTE BASOS 01/03/2019 0.04 0.00 - 0.08 K/uL Final Granulocytes, immature 01/03/2019 0.02 0.00 - 0.05 K/uL Final Lab work reviewed and was normal. Continue Enbrel. Continue naproxen up until 10 days before surgery. Continue oxycodone as needed. No extra-articular manifestations of disease. Assessment & Plan (01/03/2019 8:56 AM EDT): Polyarticular disease with psoriatic plaques doing well on both fronts with Enbrel and clobetasol. Lab work from September showed alkaline phosphatase of 78 with an AST of 16 and ALT of 9 a CRP of 2.6. Lecture lites and BUN and creatinine and CBC with differential were normal. These labs will be repeated today along with a TSH. Meds will be left unchanged. Assessment & Plan (09/07/2018 4:47 PM EST): I suspect she is having a polyarticular flare of psoriatic arthritis. I feel that she likely also has an upper respiratory infection most likely viral in nature. We will get a chest x-ray and a full set of labs today and start her on 15 mg of prednisone as a single morning dose and stop all NSAIDs and use the narcotics sparingly and continue all other medications unchanged, fall and fracture prevention strategies, good oral hydration, and acetaminophen not exceeding 2000 mg daily as needed for control of any low-grade fever and myalgias. Questions were answered and greater than 50% of this 28-minute visit was spent in [id number] conversation with the patient going over the differential diagnosis and future treatment as well as coordinating my care with out of her primary care physician and orthopedic surgeon. Assessment & Plan (04/18/2018 12:40 PM EDT): Patient was consulted a garment looper who has put her on a biologic drug plaque psoriasis which may help her psoriatic arthritis. I am awaiting a consultation form from the garment looper and I did stop her Enbrel. Other medications will continue unchanged. I reviewed with her lab work from January which showed a clear urinalysis, creatinine 0.9, PO2 114, hemoglobin 13.8, hematocrit 41.9, and a white count of 7800 with a normal differential. She understands the need for a high dose flu vaccine this fall, Prevnar 13 pneumococcal vaccine and a strong recommendation for the new shingles vaccine. She will speak to her primary care physician about this and I will give her the flu vaccine in July. All of her questions were answered. Greater than 50% of this 28 minute visit was spent in [id number] conversation going over her medications, immunosuppressive effect of her meds, vaccination schedule, and strongly encouraging follow-up with her primary care physician. Assessment & Plan (03/14/2018 12:52 PM EDT): Active but stable with multiple joints. Compliant with and tolerant of her medications. Reviewed recent lab work in January showing a clear urinalysis, glucose of 90, creatinine 0.9, GFR 66, hemoglobin 13.8. Assessment & Plan (12/13/2017 11:00 AM EST): Polyarticular active disease with enthesopathy. Pain is stable on Enbrel. She is having acute flare spinal enthesopathy which will be treated with local injection therapy today. She will continue on 50 mg of Enbrel weekly. I reviewed lab work with her from 09/07/17 showing a hemoglobin of 13.0 with a hematocrit of 40.9 and a white count of 9000 with a normal differential. Her C-reactive protein was 0.2 with an AST of 20, and ALT of 12. I reviewed the MRI of the lumbar spine from 2015 showing several areas of neural foraminal narrowing bilaterally and a small disc herniation at L5-S1. Assessment & Plan (09/07/2017 9:59 AM EST): Polyarticular nature of this disease along with plaque psoriasis is under reasonably good control using very low-dose prednisone and cosentyx, which she tolerates well. She is off the biologic medication now because of an upper respiratory infection. She continues to show active enthesopathy and synovitis in multiple joints but it has improved from the previous visit. Stomatitis 09/07/2017 Assessment & Plan (12/13/2017 11:01 AM EST): This has improved. Small sores in the mouth not today but has occurred sporadically and much improved from before. Assessment & Plan (09/07/2017 10:00 AM EST): Advised continued use of antifungal cream as well as Aquaphor ointment. She is to keep the area clean and dry. 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 Refill [facility] [address] [place] [address] Fredy Brooks MD Medication Refill from Last 3 Months Immunizations Immunization Administration Dates Next Due COVID-19 (Pre-08/01) AstraZe neca Vaccine, rS-ChAdOx1, PF 12/11/2020 COVID-19 (Pre-08/01) Pfizer Vaccine, Bivalent 12+ 08/11/2022 COVID-19 (Pre-08/01) Pfizer Vaccine, mRNA, PF 05/29/2021,01/01/2021,12/11/2020 COVID-19 (Pre-08/01) Pfizer Vaccine, mRNA, daniel-sucrose, PF 04/23/2022 COVID-19 Pfizer Comirnaty Vaccine 12+ 10/12/2023 Influenza High-Dose Quadriva lent Preservative Free IM 07/08/2021,07/30/2020 Influenza High-Dose Trivalen t Preservative Free IM 06/29/2024,06/29/2018 Influenza Quadrivalent Adjuv anted Preservative Free IM 09/20/2023,09/08/2022 Influenza Quadrivalent Preservative Free IM 05/2015 Pneumococcal conjugate PCV20 06/29/2024 RSV Vaccine (monovalent, adjuvanted) 10/12/2023 Tdap 09/22/2016 Zoster live 08/13/2020 Zoster recombinant 08/13/2020 Family History Medical History Relation Comments Lung cancer Father Relation Status Comments Father Social History Tobacco Use Types Packs/Day Years Used Date Smoking Tobacco: Every Day Cigarettes 1 60.9 Started: 1964 Smokeless Tobacco: Never Tobacco Cessation:Ready to Q uit: Yes; Counseling Given: Yes Comments:1 pack per day (11/07/24) Alcohol Use Standard Drinks/Week Comments No 0 [...] on file Sexual Orientation Not on file Last Filed Vital Signs Vital Sign Reading Time Taken Comments Blood Pressure 132/83 11/16/2024 1:57 PM EST Pulse 86 11/16/2024 1:57 PM EST Temperature 36.6 C (97.8 F) 11/16/2024 1:57 PM EST Respiratory Rate 17 11/08/2024 10:1 6 AM EST Oxygen Saturation 96% 11/16/2024 1:57 PM EST Inhaled Oxygen Concentration - - Weight 71.1 kg (156 lb 12.8 oz) 03/21/2025 2:02 PM EDT Height 160 cm (5' 3 ) 03/21/2025 2:02 PM EDT Body Mass Index 27.78 03/21/2025 2:02 PM EDT Plan of Treatment Upcoming Encounters Date Type Department Care Team (Late st Contact Info) Description 03/21/2025 Procedure Pass [facility], Ct Scan - [facility] [place] [place] [address] 10/23/2025 9:30 AM EST Office Visit [facility] [address] [place] [address] Mary Lou Pires, WOOD ENGRAVER [address] [address] [email or web address] 10/29/2025 10:30 AM EST Appointment [facility], Ct Scan [address] [address] Fredy Brooks MD [address] [place] [address] 11/05/2025 10:00 AM EST Office Visit [facility] [address] [facility] [place] [address] Fredy Brooks MD [address] [place] [address] Health Maintenance Due Date Last Done Comments DEPRESSION SCREENING 1962 COLOGUARD 1995 FIT TEST 1995 FOBT 1995 SIGMOIDOSCOPY 1995 VIRTUAL COLONOSCOPY 1995 LIPID PANEL 09/24/2020 09/24/2019, 01/19/2011 ZOSTER VACCINES (2 of 2) 10/08/2020 08/13/2020, 01/2020 MAMMOGRAM 10/19/2024 10/19/2022, 09/11, 11/22/2017 INFLUENZA VACCINE (#1) 2025 , 09/20/2023, 09/08/2022, Additional history exists COVID-19 VACCINE ( season) 2025 10/12/2023, 08/11/2022, 04/23/2022, Additional history exists LUNG CANCER SCREENING (LDCT Only) 10/24/2025 10/24/2024, 10/14/2023, 09/14/2022, Additional history exists SMOKING Hx and SMOKELESS TOBACCO SCREENING 03/21/2026 03/21/2025 POTASSIUM LEVEL 08/06/2026 08/06/2025, 09/09, 03/22/2023, Additional history exists Adult Td,Tdap Booster 09/22/2026 09/22/2016 COLONOSCOPY 07/27/2033 07/27/2023 COLORECTAL CANCER SCREENING 07/27/2033 HEPATITIS C SCREENING Completed 09/24/2019 OSTEOPOROSIS SCREENING INITIAL (ONE-TIME) Completed 12/04/2020 RSV VACCINE Completed 10/12/2023 PNEUMOCOCCAL VACCINES (50+ years) Completed 06/29/2024 HEPATITIS A VACCINES Aged Out No long er eligible based on patient's age to complete this topic HIB VACCINES Aged Out No longer eligi ble based on patient's age to complete this topic MENINGOCOCCAL VACCINES (ACWY) Aged Out No longer eligible based on patient's age to complete this topic MENINGOCOCCAL VACCINES (B) Aged Out N o longer eligible based on patient's age to complete this topic Medical Devices Implanted Type Area Chiropractic Physician Device Identifier Shelf Expiration Date Model / Serial / Lot [place] Suture 4.5mm Arthroscopy Reelx Stt Peek Ss Core Knotless Shapr Tip Expandable Bx/5ea - [id number] Implanted:Qty: 1 on 04/27/2019 by Adin Morelos DO at [facility] Right: Shoulder [employer] 08/03/2020 [id number] / / [id number] [place] Suture 5.5mm Size 2 Intraline Titanium Force Fiber - [id number] Implanted:Qty: 1 on 04/27/2019 by Adin Morelos DO at [facility] Right: Shoulder [employer] 06/29/2020 [id number] / / [id number] [place] Suture 5.5mm Size 2 Intraline Titanium Force Fiber - [id number] Implanted:Qty: 1 on 04/27/2019 by Adin Morelos DO at [facility] Right: Shoulder [employer] 11/06/2020 [id number] / / [id number] [place] Suture 5.5x6.5 19.4mm Arthroscopy Reelx Stt Peek Ss Core Knotless Sharp Tip Expandable [place] Multi - [id number] Implanted:Qty: 2 on 04/27/2019 by Adin Morelos DO at [facility] Right: Shoulder [employer] 11/30/2019 [id number] / / [id number] Procedures Procedure Name Priority Date/Time Associated Diagnosis Comments COMPREHENSIVE METABOLIC PANEL (CMP) Routine 08/06/2025 12:42 PM EDT Cramp of limb Arthritis mutilans CBC AND DIFFERENTIAL Routine 08/06/2025 12:42 PM EDT Cramp of limb Arthritis mutilans SEDIMENTATION RATE (ESR) Routine 08/06/2025 12:42 PM EDT Cramp of limb Arthritis mutilans CT CHEST LUNG CANCER SCREENING ANNUAL Routine 10/24/2024 4:10 PM EST Encounter for screening for lung cancer ENDOSCOPY, COLON 07/27/2023 1:51 PM EDT BI MAMMOGRAM SCREENING WITH TOMOSYNTHESIS WITH CAD (BILATERAL) Routine 10/19/2022 11:56 AM EST Breast screening BD DXA AXIAL (SPINE) WITH HIP Routine 12/04/2020 4:13 PM EST Psoriatic arthritis LIPID PANEL Routine 09/24/2019 9:41 AM EST Routine general medical examination at a health care facility 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 ischemic heart disease SAPHO syndrome HEPATITIS C ANTIBODY, QUALITATIVE Routine 09/24/2019 9:41 AM EST Routine general medical examination at a health care facility 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 ischemic heart disease SAPHO syndrome from Last 3 Months or Most Recently Relevant to Health Maintenance Results * (ABNORMAL) Comprehensive metabolic panel (08/06/2025 12:42 PM EDT) SODIUM 136 133 - 146 mmol/L [facility] POTASSIUM 3.9 3.3 - 5.1 mmol/L [facility] CHLORIDE 97 96 - 108 mmol/L [facility] CO2 31 21 - 35 mmol/L [facility] BUN 12 6 - 19 mg/dL [facility] CREATININE 0.70 0.5 - 1.5 mg/dL [facility] GLUCOSE 112(H) 70 - 99 mg/dL [facility] ALBUMIN 4.3 3.9 - 4.8 g/dL [facility] TOTAL PROTEIN 6.9 6.5 - 8.0 g/dL [facility] CALCIUM 9.2 8.4 - 10.3 mg/dL [facility] ALKALINE PHOSPHATASE 49 39 - 117 U/L [facility] TOTAL BILIRUBIN 0.5 0.0 - 1.2 mg/dL [facility] AST 24 0 - 37 U/L [facility] ALT 13 0 - 40 U/L [facility] GLOBULIN 2.6 1 - 4.8 g/dL [facility] EGFR 91 >59 mL/min/1.7 3m2 [facility] Comment:Estimated glomerular filtration rate calculated using the CKD-EPI refit equation. ANION GAP 12 10 - 20 mmol/L [facility] Blood 08/06/2025 12:4 2 PM EDT 08/06/2025 12:44 PM EDT Ab Muller DO LAB BLOOD BKR ORDERABLES Fin al Result Performing Organization Address [facility] Co de Phone Number [address] [address] * Sedimentation rate (ESR) (08/06/2025 12:42 PM EDT) ESR 14 0 - 30 mm/h [facility] Blood 08/06/2025 12:4 2 PM EDT 08/06/2025 12:44 PM EDT Ab Muller DO LAB BLOOD BKR ORDERABLES Fin al Result Performing Organization Address [facility] Co de Phone Number [address] [address] * (ABNORMAL) CBC and differential (08/06/2025 12:42 PM EDT) WBC 12.27(H) 4.00 - 11.00 K/uL [facility] RBC 4.40 4.00 - 5.20 M/uL [facility] HGB 13.7 12.0 - 16.0 g/dL [facility] HCT 41.6 36.0 - 46.0 % [facility] PLT 260 150 - 450 K/uL [facility] MCV 94.5 80.0 - 100.0 fL [facility] MCH 31.1(H) 27.0 - 31.0 pg [facility] MCHC 32.9 32.0 - 36.0 g/dL [facility] RDW 13.8 11.5 - 14.5 % [facility] MPV 9.8 8.4 - 12.0 fL [facility] NRBC 0.00 0.00 /100 WBCs [facility] ABSOLUTE NRBC 0.00 0.00 K/uL [facility] DIFF METHOD Auto [facility] NEUTS 87.9(H) 48.0 - 76.0 % [facility] LYMPHS 7.2(L) 18.0 - 41.0 % [facility] MONOS 3.3(L) 4.0 - 11.0 % [facility] EOS 0.6 0.0 - 5.0 % [facility] BASOS 0.3 0.0 - 1.5 % [facility] Granulocytes, immature (%) 0.7 0.0 - 0.9 % [facility] ABSOLUTE NEUTS 10.79(H) 1.92 - 7.60 K/uL [facility] ABSOLUTE LYMPHS 0.88 0.72 - 4.10 K/uL [facility] ABSOLUTE MONOS 0.41 0.16 - 1.10 K/uL [facility] ABSOLUTE EOS 0.07 0.00 - 0.50 K/uL [facility] ABSOLUTE BASOS 0.04 0.00 - 0.15 K/uL [facility] Granulocytes, immature 0.08 0.00 - 0.09 K/uL [facility] Blood 08/06/2025 12:4 2 PM EDT 08/06/2025 12:44 PM EDT us Ab Muller DO LAB BLOOD BKR ORDERABLES Fin al Result [address] [address] * CT CHEST LUNG CANCER SCREENING ANNUAL (10/24/2024 4:10 PM EST) Anatomical Region Laterality Modality Chest Computed Tomogra phy 10/26/2024 9:20 AM EST Impressions 10/26/2024 9:26 AM EST Lung-RADS Category: 2. The identified solid nodule has a very low likelihood of becoming a clinically active cancer, due to size and/or lack of growth. RECOMMENDATIONS: Continue Lung-RADS Annual Lung Cancer Screening Chest CT in 12-14 months if patient meets eligibility criteria. To order, please type CT CHEST SCREENING (CT.TH.CHESTSCRS) and select ANNUAL for patient program status. Explanation of the Lung-RADS categories can be found at: [email or web address] Narrative 10/26/2024 9:[address] CHEST LUNG CANCER SCREENING ANNUAL Referring clinician's provided indication for this examination in Epic: * Lung Cancer Screening TECHNIQUE: Low dose multidetector CT of the chest was performed without intravenous contrast using tailored dose modulation techniques. COMPARISON: CT CHEST LUNG CANCER SCREENING ANNUAL FINDINGS: Devices/Tubes/Lines: None. Lungs: Unchanged pulmonary micronodules, for example in the right lower lobe (5:262) and in the right lung apex (5:77). Diffuse bronchial wall thickening. Tiny endobronchial mucous plugging in the right upper lobe. Trace secretions in the central airways. Pleura: No pleural effusion or pneumothorax. Mediastinum: No pericardial effusion. Severe amount of coronary calcifications. 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 Lymph Nodes: No enlarged supraclavicular, axillary, mediastinal, or hilar lymph nodes by CT size criteria. Upper Abdomen: Absence of intravenous contrast and low dose technique limits sensitivity for detecting small lesions, solid organ and vascular findings. No abnormality detected in the visualized upper abdomen. Chest Wall: No suspicious chest wall mass. Bones: No destructive osseous lesions. Metallic anchors are in the right humeral head. Procedure Note Elizabet Rodríguez MD - 10/26/2024 CT CHEST LUNG CANCER SCREENING ANNUAL Referring clinician's provided indication for this examination in Epic: *Lung Cancer Screening TECHNIQUE: Low dose multidetector CT of the chest was performed withoutintravenous contrast using tailored dose modulation techniques. COMPARISON: CT CHEST LUNG CANCER SCREENING ANNUAL 2023- FINDINGS: Devices/Tubes/Lines: None. Lungs: Unchanged pulmonary micronodules, for example in the right lowerlobe (5:262) and in the right lung apex (5:77). Diffuse bronchial wallthickening. Tiny endobronchial mucous plugging in the right upper lobe.Trace secretions in the central airways. Pleura: No pleural effusion or pneumothorax. Mediastinum: No pericardial effusion. Severe amount of coronarycalcifications. There is an aberrant right subclavian artery which coursesbehind the esophagus, an anatomic variant. Lymph Nodes: No enlarged supraclavicular, axillary, mediastinal, or hilarlymph nodes by CT size criteria. Upper Abdomen: Absence of intravenous contrast and low dose techniquelimits sensitivity for detecting small lesions, solid organ and vascularfindings. No abnormality detected in the visualized upper abdomen. Chest Wall: No suspicious chest wall mass. Bones: No destructive osseous lesions. Metallic anchors are in the righthumeral head. IMPRESSION: Lung-RADS Category: 2. The identified solid nodule has a very lowlikelihood of becoming a clinically active cancer, due to size and/or lackof growth. RECOMMENDATIONS: Continue Lung-RADS Annual Lung Cancer Screening Chest CT in 12-14 monthsif patient meets eligibility criteria. To order, please type CT CHEST SCREENING (CT.TH.CHESTSCRS) and selectANNUAL for patient program status. Explanation of the Lung-RADS categories can be found at:[email or web address] Fredy Brooks MD [facility] CT CHEST Final Result * ENDOSCOPY, COLON (07/27/2023 1:51 PM EDT) Narrative Transcriptions Rahul Betancourt MD - 07/27/2023 1:51 PM EDT [facility] Patient Name: Annie Soriano Attending MD:: RAHUL BETANCOURT MD, Procedure Date: 07/27/2023 1:51 PM Date of : 1950 Age: 72 Admit Type: Outpatient Gender: Female Room: [place] [address] Referring MD: ELAN RIOS DO Exam Type: Colonoscopy Indications: 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 colorectal malignant neoplasm, Last colonoscopy 10 years ago Medications: Monitored Anesthesia Care Procedure: Informed consent was obtained from the patientafter discussion of the indications, limitations, alternatives, benefits, and risks of the procedure. Risks specifically discussed include but are not limited to medication reactions, missed lesions, bleeding, perforation, or the need for emergent surgery. Throughout the procedure, the patient's blood pressure, pulse, end-tidal CO2, and oxygensaturations were monitored continuously. The Olympus adult variable colonoscope [id number] #3 was introduced through the anus and advanced to the terminal ileum, with identification of theappendiceal orifice and IC valve. The colonoscopy was performed without difficulty. The patient tolerated the procedure well. The quality of the bowelpreparation was good. The terminal ileum, ileocecal valve, appendiceal orifice, and rectum and the ileocecal valve, appendiceal orifice, and rectum were photographed. Complications: No immediate complications. Estimated blood loss:None. Findings: The terminal ileum appeared normal. Examination of the right colon was repeated in retroflexion and again in NBI. Retroflexion wasalso performed in the rectum. A 2 mm polyp was found in the cecum. The polyp was sessile. The polyp was removed with a cold biopsy forceps. Resection and retrieval were complete. A 3 mm polyp was found in the descending colon. The polyp was sessile. The polyp was removed with acold snare. Resection and retrieval were complete. The exam was otherwise without abnormality. Impression: - The examined portion of the ileum was normal. - One 2 mm polyp in the cecum, removed with a cold biopsy forceps. Resected and retrieved. - One 3 mm polyp in the descending colon, removedwith a cold snare. Resected and retrieved. - The examination was otherwise normal. Recommendation: - Patient has a contact number available for emergencies. The signs and symptoms of potential delayed complications were discussed with thepatient. Return to normal activities tomorrow. Written discharge instructions were provided to thepatient. - Await pathology results. - Repeat colonoscopy for surveillance based on pathology results. Rahul Betancourt RAHUL BETANCOURT MD 07/27/2023 2:34:00 PM This report has been signed electronically. Number of Addenda: 0 Note Initiated On: 07/27/2023 1:51 PM Procedure Code(s): --- Professional --- 36141, Colonoscopy, flexible; with removal of tumor(s), polyp(s), or other lesion(s) by snare technique 19174, 59, Colonoscopy, flexible; with biopsy, single or multiple --- Technical --- 66174, Colonoscopy, flexible; with removal of tumor(s), polyp(s), or other lesion(s) by snare technique 81503, 59, Colonoscopy, flexible; with biopsy, single or multiple CPT copyright 2021 [employer]. All rights reserved. The codes documented in this report are preliminary and upon medical record coder reviewmay be revised to meet current compliance requirements. Procedure Date: 07/27/2023 1:51:05 PM [address], [place] [id number] us Elan A Bigda DO GI PROCEDURE ORDERABLES Final Re sult * BI MAMMOGRAM SCREENING WITH TOMOSYNTHESIS WITH CAD (BILATERAL) (10/19/2022 11:56 AM EST) Anatomical Region Laterality Modality Breast Left, Breast Right, Breast Bilateral Bila teral Mammography 10/21/2022 9:21 AM EST Impressions 10/21/2022 9:42 AM EST No findings suspicious for malignancy are identified. In the absence of a worrisome palpable abnormality, annual screening mammography is recommended. BI-RADS CATEGORY: 1 - Negative. DENSITY: There are scattered fibroglandular densities. Narrative 10/21/2022 9:42 AM EST COMPARISON: 10/09/2020 through 04/30/2004 Bilateral 3-D tomosynthesis with 2-D reconstructions in the CC and MLO projection. Computer-aided detection system was utilized. No new mass, asymmetry, architectural distortion or suspicious calcifications have become apparent on either side. Procedure Note Fabian Ellis MD - 10/21/2022 COMPARISON: 10/09/2020 through 04/30/2004 Bilateral 3-D tomosynthesis with 2-D reconstructions in the CC and MLOprojection. Computer-aided detection system was utilized. No new mass, asymmetry, architectural distortion or suspiciouscalcifications have become apparent on either side. IMPRESSION: No findings suspicious for malignancy are identified. In the absence of aworrisome palpable abnormality, annual screening mammography isrecommended. BI-RADS CATEGORY: 1 - Negative. DENSITY: There are scattered fibroglandular densities. Trinity MOBLEY IMG MG EXAMS Final Resul t * BD DXA AXIAL (SPINE) WITH HIP (12/04/2020 4:13 PM EST) Anatomical Region Laterality Modality Bone Density Bone Density 12/04/2020 4:24 PM EST Impressions 12/04/2020 4:25 PM EST 1.Normal lumbar spine and bilateral hip bone density. 2.Moderate lumbar levoscoliosis. Narrative 12/04/2020 4:25 PM EST COMPARISON: None. BONE DENSITY FINDINGS: History: This is a 70-year-old postmenopausal female. Evaluation of the lumbar spine and hips was performed and felt to be technically adequate. Moderate lumbar levoscoliosis. Total bone mineral density in the L1 & L4 vertebral bodies was calculated at 1.053 gm/cm2 with a T-score of 0.1 falling within the WHO classification of normal. Z-score of 2.2. Total bone mineral density in the right hip was calculated at 0.919 gm/cm2 with a T-score of -0.2 falling within the WHO classification of normal. Z-score of 1.3. Total bone mineral density in the left hip was calculated at 0.937 gm/cm2 with a T-score of 0 falling within the WHO classification of normal. Z-score of 1.5. Procedure Note Tesfaye Saldana MD - 12/04/2020 COMPARISON: None. BONE DENSITY FINDINGS: History: This is a 70-year-old postmenopausal female. Evaluation of the lumbar spine and hips was performed and felt to betechnically adequate. Moderate lumbar levoscoliosis. Total bone mineral density in the L1 & L4 vertebral bodies was calculatedat 1.053 gm/cm2 with a T-score of 0.1 falling within the WHOclassification of normal. Z- score of 2.2. Total bone mineral density in the right hip was calculated at 0.919 gm/jb7iptz a T-score of -0.2 falling within the WHO classification of normal.Z-score of 1.3. Total bone mineral density in the left hip was calculated at 0.937 gm/lj4kpmk a T-score of 0 falling within the WHO classification of normal.Z-score of 1.5. IMPRESSION: 1.Normal lumbar spine and bilateral hip bone density. 2.Moderate lumbar levoscoliosis. us Orville A Gretel MD IMG BD BONE DENSITY DEXA F inal Result * Hepatitis C antibody, qualitative (09/24/2019 9:41 AM EST) HCV NON-REACTIV E NON-REACTI VE [facility] Blood 09/24/2019 9:41 AM EST 09/24/2019 10:27 AM EST January Dale MOBLEY-Deon LAB BLOOD BKR ORDERABLES Fin al Result Performing Organization Address [facility] Co de Phone Number [address] [address] * Lipid panel (09/24/2019 9:41 AM EST) HDL 60 mg/dL [facility] Comment: Interpretation <40 mg/dL: Low HDL cholesterol (major risk factor for CHD) Greater than or equal to 60 mg/dL: High HDL cholesterol ( negative risk factor for CHD) HDL - cholesterol is affected by a number of factors, e.g. smoking, excerise, hormones, sex and age. CHOLESTEROL 199 0 - 240 mg/dL [facility] TRIGLYCERIDES 109 30 - 160 mg/dL [facility] LDL 117 50 - 129 mg/dL [facility] Comment: LDL levels in terms of risk for coronary heart disease: <100 mg/dL: Optimal 100-129 mg/dL: Near or above optimal 130-159 mg/dL: Borderline high 160-189 mg/dL: High >190 mg/dL: Very High CARDIAC RISK RATIO 3.3 3.3 - 4.4 [facility] Blood 09/24/2019 9:41 AM EST 09/24/2019 10:27 AM EST January Dale CHEN LAB BLOOD BKR ORDERABLES Fin al Result Performing Organization Address [facility] Co de Phone Number [address] [address] from Last 3 Months or Most Recently Relevant to Health Maintenance Insurance MEDICARE PART A & B [employer] MEDICARE SUPPLEMENT MEDICARE PART A & B Blood cell Storage [employer] MEDICARE SUPPLEMENT [facility] MEDICARE SUPPLEMENT MEDICARE PART A & B [facility] EXT[employer]ION MEDICARE SUPPLEMENT MEDICARE PART A & B [facility] [employer] MEDICARE SUPPLEMENT [facility] [employer] MEDICARE SUPPLEMENT [facility] [employer] MEDICARE SUPPLEMENT MEDICARE PART A & B [facility] [employer] MEDICARE SUPPLEMENT MEDICARE PART A & B [facility] [employer] MEDICARE SUPPLEMENT Care Teams Order Builder Relationship Specialty Start Date End Date Elan Rios DO [email or web address] PCP - General Internal Medicine 09/07/17 Elan Rios DO Historical LMR Provider 07/25/17 Orville Majano MD [email or web address] Historical LMR Provider 07/25/17 Additional Source Comments The information contained in this document represents components of the legal health record. It is not the complete legal health record.[facility]
--- OUTSIDE RECORDS SUMMARY | 2025-08-29 03:05 | XMS_ITS | Encounter Summary ---
Author Organization [facility] Address [facility] [employer] [facility] [place] [address] [place] [phone] Phone Care Team Providers Care Demolition Hammer Operator Name Role Phone Hector Lan DO Unavailable Orville Majano MD Unavailable [email or web address] Mary Carmen Haji POURED PIPE MAKER Unavailable [phone] Ivet Boothe POURED PIPE MAKER Unavailable [phone] Karen Mendoza POURED PIPE MAKER Unavailable [phone] Hector Lan DO Primary Care Provider [phone] Encounter Details Date Type Department Care Team (Late Contact Info) Description 11/24/2018 Procedure Pass OR Admitting Dept - Virtual Department [address] [place] [id number] Social History Tobacco Use Types Packs/Day Years [...] (Late Contact Info) Description 03/21/2025 Procedure Pass [facility] Ct Scan - [facility] [address] [place] [address] 10/23/2025 9:30 AM EST Office Visit [facility] [address] [place] [address] Mary Lou Pires, POSSUM TRAPPER [address] [address] [email or web address] 10/29/2025 10:30 AM EST Appointment [facility], Ct Scan - [address] [address] Fredy Brooks MD [address] [place] [phone] 11/05/2025 10:00 AM EST Office Visit [facility] [address] [place] [address] Fredy Brooks MD [address] [place] [phone] documented as of this encounter Visit Diagnoses Not on filedocumented in this encounter Care Teams Demolition Hammer Operator Relationship Specialty Start Date End Date Hector Lan DO PCP - General Internal Medicine 09/07/17 Hector Lan DO Historical LMR Provider 07/25/17 Orville Majano MD [email or web address] Historical LMR Provider 07/25/17 Mary Carmen Haji, JUAN DANIEL [address] [place] [address] [place] [address] [email or web address] Historical LMR Provider 07/25/17 2 Ivet Boothe NP [address] [place] [address] [email or web address] Historical LMR Provider 07/25/17 2 Karen Mendoza NP [address] [place] [id number] Historical LMR Provider 07/25/17 2 documented as of this encounter Additional Source Comments The information contained in this document represents components of the legal health record. It is not the complete legal health record.[facility]
--- OUTSIDE RECORDS SUMMARY | 2025-08-29 03:05 | XMS_ITS | Encounter Summary ---
Author Organization [facility] Address [address] [place] [address] [place] [address] Phone Care Team Providers Care Eye Glass Frame Polisher Name Role Phone Hector Lan DO Unavailable Orville Majano MD Unavailable [email or web address] Mary Carmen Haji ICEBOX WORKER Unavailable [phone] Ivet Boothe ICEBOX WORKER Unavailable [phone] Karen Mendoza ICEBOX WORKER Unavailable [phone] Hector Lan DO Primary Care Provider [phone] Reason for Referral * Outpatient Procedure - Closed Specialty Diagnoses / Procedures Referred By Contac t Referred To Contact Diagnoses Dyspnea on exertion Procedures Adult Echo TTE Radha Hunter PA-C Phone: tel: fax: [email or web address] Referral ID Status Reason Start Date Expiration Date Visits Re quested Visits Authorized [id number] Closed 03/12/2019 03/11/2020 1 1 * - Closed Specialty Diagnoses / Procedures Referred By Contac t Referred To Contact Diagnoses Dyspnea on exertion Procedures Stress Test Exercise Radha Hunter PA-C Phone: tel: fax: mailto: Referral ID Status Reason Start Date Expiration Date Visits Re quested Visits Authorized [id number] Closed 03/12/2019 03/11/2020 1 1 Encounter Details Date Type Department Care Team (Late Contact Info) Description 03/12/2019 Ancillary Orders Virtual Department [address] [place] [address] Radha Hunter PA-C [facility] [address] [place] [address] [email or web address] Dyspnea on exertion Social History Tobacco Use Types Packs/Day Years [...] (Late Contact Info) Description 03/21/2025 Procedure Pass [facility], Ct Scan [address] [address] 10/23/2025 9:30 AM EST Office Visit [facility] [address] [place] [address] Mary Lou Pires, SATHISH [address] [place] [address] [email or web address] 10/29/2025 10:30 AM EST Appointment [place], Ct Scan [address] [address] Fredy Brooks MD [address] [place] [address] [email or web address] 11/05/2025 10:00 AM EST Office Visit [facility], Allergy and Critical Care Medicine 10 [place] [address] Fredy Brooks MD [address] [place] [address] [email or web address] documented as of this encounter Results * TTE COMPREHENSIVE (03/27/2019 11:57 AM EDT) Body Surface Area 1.7 m2 Height 160 m Weight 70 kg Systolic BP 120 mmHg Diastolic BP 82 mmHg Interventricular Septum Thickness 8 mm Left Ventricle Internal Diameter End Diastole 46 37 - 52 mm Left Ventricle Internal Diameter End Systole 25 22 - 35 mm Left Ventricular Outflow Tract Diameter 19.0 mm LVOT VTI REST 233.00 mm Left Ventricular Outflow Tract Velocity 1.0 m/s Left Ventricular Outflow Tract Gradient at Rest 4.00 mmHg Left Ventricular Posterior Wall Thickness 8 mm Ejection Fraction 66 50 - 75 Percent Left Atrium Dimension Anterior-Posterior 29 15 - 40 mm Aortic Valve Peak Velocity 147.0 cm/s Aortic Valve Peak Gradient 9.00 mmHg Aortic Sinus Diameter 25 mm Ascending Aorta Diameter 31 mm Inferior Vena Cava Diameter 13 0.0 - 21 mm Mitral Valve Deceleration Time 144.00 ms Mitral Valve A Wave Speed 90.7 cm/s Mitral Valve E Wave Speed 93.1 cm/s Right Ventricle Basal Diameter 30.70 25 - 41 mm Tricuspid Valve Peak Velocity 2.6 m/s Raw LV EF% 70 % Left Atrial Volume 43 mL Left Atrial Volume Index 25.29 mL/m2 Right Ventricle Peak Systolic Pressure 30 mmHg Right Atrium Pressure Estimated 3 mmHg Right Ventricle to Right Atrium Pressure Gradient 27 mmHg Aortic Valve Sinus Index 1 15 19 - 27 mm Ascending Aorta Diameter 18 mm Aortic Sinus Index 15 mm Ascending Aorta Index 18 mm Anatomical Region Laterality Modality Heart Ultrasound Narrative 03/28/2019 8:01 PM EDT The predominant rhythm during the study was sinus. The left ventricular cavity size and wall thickness are normal. Left ventricular systolic function is normal. There are no segmental left ventricular wall motion abnormalities noted. The estimated ejection fraction is 66% (Normal 50-75%). The left ventricular ejection fraction was measured by the bi-plane method of discs. Left ventricular diastolic function appears within normal limits for age. No significant valvular disease. Normal pulmonary pressure. The RV systolic pressure was estimated from the peak TV regurgitant velocity. The estimated RV systolic pressure is 30 mmHg assuming a right atrial pressure of 3 mmHg. Compared to a prior report from 03/09/2013, no important changes. Left Ventricle The left ventricular cavity size and wall thickness are normal. Left ventricular systolic function is normal. There are no segmental left ventricular wall motion abnormalities noted. The estimated ejection fraction is 66% (Normal 50-75%). The left ventricular ejection fraction was measured by the bi-plane method of discs. Left ventricular diastolic function appears within normal limits for age. Right Ventricle The right ventricular size is normal. No evidence of right ventricular hypertrophy. The right ventricular systolic function is normal. Left Atrium The left atrium is normal in size. The left atrial anterior-posterior dimension measures 29 mm (normal 15-40 mm). The LA volume is 43 mL. The LA volume index is 25.29 mL/m2 (normal indexed value is 16-34 mL/m2). The pulmonary venous flow profiles are normal. Pulmonary vein connections were not well seen. Right Atrium The right atrium is normal in size. The IVC is normal in size (2.1cm or less). The IVC measures 13 mm (normal <=21 mm). The IVC demonstrates normal collapse with inspiration which is consistent with normal RA pressure. Mitral Valve The mitral valve appears normal. The E/A ratio is 1.0. The Med E' Davis is 8.6 cm/s and the Lat E' Davis is 7.8 cm/s. The E/E' AVG is 11.3. There is no evidence of mitral stenosis. There is trace to mild mitral regurgitation detected by spectral and color Doppler. Tricuspid Valve The tricuspid valve appears normal. There is no evidence of tricuspid stenosis. There is evidence of trace tricuspid regurgitation by color and spectral Doppler. Normal pulmonary pressure. The RV systolic pressure was estimated from the peak TV regurgitant velocity. The estimated RV systolic pressure is 30 mmHg assuming a right atrial pressure of 3 mmHg. Aortic Valve The aortic valve appears normal. The aortic valve is tricuspid. There is no evidence of valvular aortic stenosis. The peak aortic valve gradient is 9 mmHg. There is no evidence of aortic regurgitation by color and spectral Doppler. The visualized portions of the thoracic aorta appear normal. Pulmonic Valve Pulmonary valve was not well visualized. The pulmonary valve appears normal. There is no evidence of pulmonic stenosis. There is no evidence of pulmonary regurgitation by color and spectral Doppler. Pericardium There is no evidence of pericardial effusion. There is evidence of epicardial fat. There no evidence of a pleural effusion. Interatrial Septum The interatrial septum appears normal. Interventricular Septum Interventricular septal motion appears normal. General Findings The image quality was good (2). Technique(s) used in the evaluation: Color flow Doppler and Spectral Doppler. The predominant rhythm during the study was sinus. Comparison Findings Compared to a prior report from 03/09/2013, no important changes. us January Dale CHEN CV ECHO ORDERABLES Final Res ult * Stress Test Exercise (03/15/2019 9:53 AM EDT) Max BP Systolic 162 mmHg [facility] Max BP Diastolic 84 mmHg [facility] Max HR 121 BPM [facility] Resting HR 86 BPM [facility] Resting BP Systolic 110 mmHg [facility] Resting BP Diastolic 70 mmHg [facility] Peak METS 9.6 METS [facility] Peak HR 118 BPM [facility] Anatomical Region Laterality Modality Heart Other 03/15/2019 8:27 AM EDT 03/15/2019 9:53 AM EDT Narrative 03/15/2019 10:54 AM EDT Response to Stress The patient exercised for minutes seconds, achieving 9.6 METS at peak exercise. Baseline blood pressure was 110/70 mmHg, and baseline heart rate was 86 bpm. The patient achieved a peak heart rate of 118 bpm, which is% of their maximum predicted heart rate. Patient exercised for 6:53 minutes on a standard Jayjay protocol achieving 9.6 METs and 79% MPHR (121 BPM). The test was terminated due to fatigue. SUMMARY: 1. RESTING ECG: Sinus rhythm with TWI in V1-V2 2. EXERCISE ECG: No ECG changes meeting criteria for ischemia however patient did not achieve target heart rate 3. SYMPTOMS: Pt reported limitting 6/10 chest pressure at peak exercise, this resolved spontaneously in recovery. She was short of breath at peak exercise. 4. PHYSIOLOGY: Normal blood pressure response to exercise. Resting heart rate of 81 bpm dimas to a max heart rate of 121 bpm, this represents 79% MPHR. Resting BP of 110/70 dimas to a max BP of 162/84. Vital signs stable and returned to baseline prior to discharge from the lab. Achieved 9.6 METs consistent with good functional capacity for age. 5. ARRHYTHMIA: Occasional isolated PVC CONCLUSION: Non diagnostic ECG portion of exercise stress test as patient was unable to achieve target heart rate. She did report exertional chest pain at peak exercise 03/19 which resolved spontaneously in recovery. Normal blood pressure response to exercise. Good functional capacity. Calvert treadmill score of -2 consistent with moderate risk for cardiac events. See attached stress report for full details. Ordering ICEBOX WORKER notified of test results, recommend pharmacologic nuclear stress test prior to scheduled surgery next week, Devon Stein APRN with Dr. Yusuf . January Dale CHEN CV STRESS ORDERABLES Final R esult documented in this encounter Visit Diagnoses Diagnosis Dyspnea on exertion Other dyspnea and respiratory abnormality Dyspnea on exertion Other dyspnea and respiratory abnormality Dyspnea on exertion Other dyspnea and respiratory abnormality documented in this encounter Care Teams Eye Glass Frame Polisher Relationship Specialty Start Date End Date Hector Lan DO PCP - General Internal Medicine 09/07/17 Hector Lan DO Historical LMR Provider 07/25/17 Orville Majano MD [email or web address] Historical LMR Provider 07/25/17 Mary Carmen Haji NP [address] [place] [address] [address] [place] [address] Historical LMR Provider 07/25/17 2 Ivet Boothe NP [address] [place] [address] [email or web address] Historical LMR Provider 07/25/17 2 Karen Mendoza NP [address] [place] [address] Historical LMR Provider 07/25/17 2 documented as of this encounter Additional Source Comments The information contained in this document represents components of the legal health record. It is not the complete legal health record.[facility]
--- OUTSIDE RECORDS SUMMARY | 2025-08-29 03:05 | XMS_ITS | Encounter Summary ---
Author Organization [facility] Address [address] [place] [address] Phone Care Team Providers Care Mica Miner Blasting Name Role Phone Hector Lan DO Unavailable Orville Majano MD Unavailable [email or web address] Hector Lan DO Primary Care Provider [phone] Encounter Details Date Type Department Care Team (Late st Contact Info) Description 08/03/2024 Procedure Pass [facility] [address] [place] [address] Social History Tobacco Use Types Packs/Day Years [...] st Contact Info) Description 03/21/2025 Procedure Pass [facility], Ct Scan [address] [address] 10/23/2025 9:30 AM EST Office Visit [facility] [address] [place] [address] Mary Lou Pires, SATHISH [address] [place] [address] [email or web address] 10/29/2025 10:30 AM EST Appointment [facility], Ct Scan [address] [address] Fredy Brooks MD [address] [place] [address] 11/05/2025 10:00 AM EST Office Visit [facility] Pulmonary, Allergy [facility] Critical [facility] Medicine [address] [place] [address] Fredy Brooks MD [address] [place] [address] documented as of this encounter Visit Diagnoses Not on filedocumented in this encounter Care Teams Mica Miner Blasting Relationship Specialty Start Date End Date Hector Lan DO [email or web address] PCP - General Internal Medicine 09/07/17 Hector Lan DO [email or web address] Historical LMR Provider 07/25/17 Orville Majano MD [email or web address] Historical LMR Provider 07/25/17 documented as of this encounter Additional Source Comments The information contained in this document represents components of the legal health record. It is not the complete legal health record.[facility]
--- OUTSIDE RECORDS SUMMARY | 2025-08-29 03:05 | XMS_ITS | Encounter Summary ---
Author Organization [facility] Address [address] [place] [address] Phone Care Team Providers Care Environmental Quality Analyst Name Role Phone Hector Lan DO Unavailable Orville Majano MD Unavailable [email or web address] Mary Carmen Haji ACCOUNT ANALYST Unavailable [phone] Ivet Boothe ACCOUNT ANALYST Unavailable [phone] Karen Mendoza ACCOUNT ANALYST Unavailable [phone] Hector Lan DO Primary Care Provider [phone] Encounter Details Date Type Department Care Team (Late Contact Info) Description 07/28/2020 Procedure Pass [facility], [address] [address] Social History Tobacco Use Types Packs/Day Years [...] Contact Info) Description 03/21/2025 Procedure Pass [facility], Ct Scan - [address] [address] 10/23/2025 9:30 AM EST Office Visit [facility] [address] [place] [address] Mary Lou Pires, RAILWAY ENGINEER [address] [address] [email or web address] 10/29/2025 10:30 AM EST Appointment [facility], Ct Scan - [address] [address] Fredy Brooks MD [address] [place] [address] 11/05/2025 10:00 AM EST Office Visit [facility] Pul[facility], Allergy [facility] Critical Care Medicine [address] [place] [address] Fredy Brooks MD [address] [place] [address] documented as of this encounter Visit Diagnoses Not on filedocumented in this encounter Care Teams Environmental Quality Analyst Relationship Specialty Start Date End Date Hector Lan DO PCP - General Internal Medicine 09/07/17 Hector Lan DO Historical LMR Provider 07/25/17 Orville Majano MD [email or web address] Historical LMR Provider 07/25/17 Mary Carmen Haji, JUAN DANIEL [address] [place] [address] [place] [address] [email or web address] Historical LMR Provider 07/25/17 2 Ivet Boothe NP [address] [place] [address] [email or web address] Historical LMR Provider 07/25/17 2 Karen Mendoza NP [address] [place] [address] Historical LMR Provider 07/25/17 2 documented as of this encounter Additional Source Comments The information contained in this document represents components of the legal health record. It is not the complete legal health record.[facility]
--- OUTSIDE RECORDS SUMMARY | 2025-08-29 03:05 | XMS_ITS | Encounter Summary ---
Author Organization [facility] Address [address] [place] [address] Phone Care Team Providers Care Pipe Installer Name Role Phone Hector Lan DO Unavailable Orville Majano MD Unavailable [email or web address] Hector Lan DO Primary Care Provider [phone] Encounter Details Date Type Department Care Team (Late st Contact Info) Description 10/26/[address] [address] Social History Tobacco Use Types Packs/Day Years [...] (Late st Contact Info) Description 03/21/[address] [address] 10/23/2025 9:30 AM EST Office Visit [facility] [address] [place] [address] Mary Lou Pires, PRESS LEADER [address] [address] [email or web address] 10/29/2025 10:30 AM EST Appointment [facility], Ct Scan - [address] [address] Fredy Brooks MD [address] [place] [address] 11/05/2025 10:00 AM EST Office Visit [facility] Pul[facility], Allergy [facility] Critical Care Medicine 10 [place] [address] Fredy Brooks MD [address] [place] [address] documented as of this encounter Visit Diagnoses Not on filedocumented in this encounter Care Teams Pipe Installer Relationship Specialty Start Date End Date Hector Lan DO PCP - General Internal Medicine 09/07/17 Hector Lan DO Historical LMR Provider 07/25/17 Orville Majano MD [email or web address] Historical LMR Provider 07/25/17 documented as of this encounter Additional Source Comments The information contained in this document represents components of the legal health record. It is not the complete legal health record.[facility]
--- OUTSIDE RECORDS SUMMARY | 2025-08-29 03:05 | XMS_ITS | Encounter Summary ---
Author Organization [facility] Address [address] [employer] [facility] [address] [place] [address] Phone Care Team Providers Care Leadership Program Associate Name Role Phone Hector Lan DO Unavailable Orville Majano MD Unavailable [email or web address] Mary Carmen Haji CLIMBING GUIDE Unavailable [phone] Ivet Boothe CLIMBING GUIDE Unavailable [phone] Karen Mendoza CLIMBING GUIDE Unavailable [phone] Hector Lan DO Primary Care Provider [phone] Encounter Details Date Type Department Care Team (Latest Contact Info) Description 09/24/2019 Transcribe Orders [address] [address] Radha Hunter PA-C [address] [place] [address] [email or web address] Routine general medical examination at a health care facility (Primary Dx); 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 ischemic heart disease; SAPHO syndrome Social History Tobacco Use Types Packs/Day Years [...] st Contact Info) Description 03/21/2025 Procedure Pass [facility], Ct Scan - [address] [address] 10/23/2025 9:30 AM EST Office Visit [facility] Gastroenterology Clinic 10 [place] [address] Mary Lou Pires, BEAN SORTER [address] [place] [address] [email or web address] 10/29/2025 10:30 AM EST Appointment [facility], Ct Scan [address] [address] Fredy Brooks MD [address] [place] [address] 11/05/2025 10:00 AM EST Office Visit [facility] All[facility] Critical [facility] 10 [place] [address] Fredy Brooks MD [address] [place] [address] documented as of this encounter Results * 25-OH vitamin D (09/24/2019 9:41 AM EST) 25 OH VIT D (TOTAL) 35 30 - 60 ng/mL [facility] Blood 09/24/2019 9:41 AM EST 09/24/2019 10:27 AM EST January Dale CHEN LAB BLOOD BKR ORDERABLES Fin al Result [address] [address] * Lipid panel (09/24/2019 9:41 AM EST) HDL 60 mg/dL [facility] Comment: Interpretation <40 mg/dL: Low HDL cholesterol (major risk factor for CHD) Greater than or equal to 60 mg/dL: High HDL cholesterol ( negative risk factor for CHD) HDL - cholesterol is affected by a number of factors, e.g. smoking, excerise, hormones, sex and age. CHOLESTEROL 199 0 - 240 mg/dL [facility] TRIGLYCERIDES 109 30 - 160 mg/dL [facility] LDL 117 50 - 129 mg/dL [facility] Comment: LDL levels in terms of risk for coronary heart disease: <100 mg/dL: Optimal 100-129 mg/dL: Near or above optimal 130-159 mg/dL: Borderline high 160-189 mg/dL: High >190 mg/dL: Very High CARDIAC RISK RATIO 3.3 3.3 - 4.4 C [facility] Blood 09/24/2019 9:41 AM EST 09/24/2019 10:27 AM EST January [facility] LAB BLOOD BKR ORDERABLES Fin al Result Performing Organization Address [facility] Co de Phone Number [address] [address] * Hepatitis C antibody, qualitative (09/24/2019 9:41 AM EST) HCV NON-REACTIV E NON-REACTI VE [facility] Blood 09/24/2019 9:41 AM EST 09/24/2019 10:27 AM EST January [facility] LAB BLOOD BKR ORDERABLES Fin al Result Performing Organization Address [facility] Co de Phone Number [address] [address] * Comprehensive metabolic panel (09/24/2019 9:41 AM EST) SODIUM 136 133 - 146 mmol/L [facility] POTASSIUM 3.7 3.3 - 5.1 mmol/L [facility] CHLORIDE 96 96 - 108 mmol/L [facility] CO2 30 21 - 35 mmol/L [facility] BUN 12 6 - 19 mg/dL [facility] CREATININE 0.90 0.5 - 1.5 mg/dL [facility] GLUCOSE 98 70 - 99 mg/dL [facility] ALBUMIN 4.1 3.9 - 4.8 g/dL [facility] TOTAL PROTEIN 7.2 6.5 - 8.0 g/dL [facility] CALCIUM 9.6 8.4 - 10.3 mg/dL [facility] ALKALINE PHOSPHATASE 77 39 - 117 U/L [facility] TOTAL BILIRUBIN 0.5 0.0 - 1.2 mg/dL [facility] AST 24 0 - 37 U/L [facility] ALT 12 0 - 40 U/L [facility] GLOBULIN 3.1 1 - 4.8 g/dL [facility] EGFR 66 >59 mL/min/1.7 3m2 [facility] Comment:If patient is black, multiply result by 1.159. Estimated glomerular filtration rate calculated using the CKD-EPI equation. ANION GAP 14 10 - 20 mmol/L [facility] Blood 09/24/2019 9:41 AM EST 09/24/2019 10:27 AM EST January Dale [facility] LAB BLOOD BKR ORDERABLES Fin al Result [address] [address] * (ABNORMAL) CBC and differential (09/24/2019 9:41 AM EST) WBC 5.67 3.40 - 11.20 K/uL [facility] RBC 4.57 3.80 - 4.80 M/uL [facility] HGB 13.5 12.0 - 15.0 g/dL [facility] HCT 40.1 36.0 - 46.0 % [facility] PLT 281 130 - 400 K/uL [facility] MCV 87.7 79.0 - 98.0 fL [facility] MCH 29.5 27.0 - 34.8 pg [facility] MCHC 33.7 31.5 - 36.0 g/dL [facility] RDW 12.6 10.8 - 14.6 % [facility] MPV 10.1 9.4 - 12.4 fl [facility] NRBC 0.00 0.00 /100 WBCs [facility] ABSOLUTE NRBC 0.00 0.00 K/uL [facility] DIFF METHOD Auto [facility] NEUTS 53.5 45.30 - 77.70 % [facility] LYMPHS 27.7 12.30 - 39.70 % [facility] MONOS 12.0 4.10 - 12.80 % [facility] EOS 5.3 0 - 7.2 % [facility] BASOS 1.1 0 - 2.80 % [facility] Granulocytes, immature (%) 0.4 0.0 - 0.9 % [facility] ABSOLUTE NEUTS 3.04 1.40 - 7.70 K/uL [facility] ABSOLUTE LYMPHS 1.57 0.60 - 3.20 K/uL [facility] ABSOLUTE MONOS 0.68(H) 0.11 - 0.59 K/uL [facility] ABSOLUTE EOS 0.30 0.01 - 0.50 K/uL [facility] ABSOLUTE BASOS 0.06 0.00 - 0.08 K/uL [facility] Granulocytes, immature 0.02 0.00 - 0.05 K/uL [facility] Blood 09/24/2019 9:41 AM EST 09/24/2019 10:27 AM EST January Dale [facility] LAB BLOOD BKR ORDERABLES Fin al Result [facility] 30 [place] [address] documented in this encounter Visit Diagnoses Diagnosis Routine general medical examination at a health care facility- Primary 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 ischemic 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 Care Teams Leadership Program Associate Relationship Specialty Start Date End Date Hector Lan DO [email or web address] PCP - General Internal Medicine 09/07/17 Hector Lan DO [email or web address] Historical LMR Provider 07/25/17 Orville Majano MD [email or web address] Historical LMR Provider 07/25/17 Mary Carmen Haji NP [address] [place] [address] [email or web address] Historical LMR Provider 07/25/17 2 Ivet Boothe NP 21 [place] [address] [email or web address] Historical LMR Provider 07/25/17 2 Karen Mendoza NP [address] [place] [address] Historical LMR Provider 07/25/17 2 documented as of this encounter Additional Source Comments The information contained in this document represents components of the legal health record. It is not the complete legal health record.[facility]
--- OUTSIDE RECORDS SUMMARY | 2025-08-29 03:06 | XMS_ITS | Encounter Summary ---
Author Organization [facility] Address [address] [employer] [facility] [address] [place] [address] Phone Care Team Providers Care Bottle Sorter Name Role Phone Hector Lan DO Unavailable Orville Majano MD Unavailable [email or web address] Mary Carmen Haji IT FIELD TECHNICIAN Unavailable [phone] Ivet Boothe IT FIELD TECHNICIAN Unavailable [phone] Karen Mendoza IT FIELD TECHNICIAN Unavailable [phone] Hector Lan DO Primary Care Provider [phone] Encounter Details Date Type Department Care Team (Late st Contact Info) Description 03/20/2020 Transcribe Orders [facility] PFT Lab 30 [place] [address] Son Santana MD, MS [address] [phone] [email or web address] Social History Tobacco Use Types Packs/Day Years Used Date Smoking Tobacco: Every Day Cigarettes 0.5 60.9 Started: 1964 Smokeless Tobacco: Never Comments:About 1/3 pack per [...] st Contact Info) Description 03/21/2025 Procedure Pass [facility], Ct Scan - [address] [address] 10/23/2025 9:30 AM EST Office Visit [facility] Gastroenterology Clinic 10 [place] [address] Mary Lou Pires, LEAD SPRINKLER [address] [address] [email or web address] 10/29/2025 10:30 AM EST Appointment [facility], Ct Scan [address] [address] Fredy Brooks MD [address] [place] [address] 11/05/2025 10:00 AM EST Office Visit [facility], Allergy [facility] Critical Care Medicine 10 [place] [address] Fredy Brooks MD [address] [place] [address] documented as of this encounter Visit Diagnoses Not on filedocumented in this encounter Care Teams Bottle Sorter Relationship Specialty Start Date End Date Hector Lan DO PCP - General Internal Medicine 09/07/17 Hector Lan DO Historical LMR Provider 07/25/17 Orville Majano MD [email or web address] Historical LMR Provider 07/25/17 Mary Carmen Haji NP 14 [facility] [address] [place] [address] [email or web address] Historical LMR Provider 07/25/17 2 Ivet Boothe NP [address] [place] [address] [email or web address] Historical LMR Provider 07/25/17 2 Karen Mendoza NP [address] [place] [address] Historical LMR Provider 07/25/17 2 documented as of this encounter Additional Source Comments The information contained in this document represents components of the legal health record. It is not the complete legal health record.[facility]
--- OUTSIDE RECORDS SUMMARY | 2025-08-29 03:06 | XMS_ITS | Encounter Summary ---
Author Organization [facility] Address [address] [employer] [facility] [address] [place] [address] Phone Care Team Providers Care Rn Peritoneal Dialysis Name Role Phone Hector Lan DO Unavailable Orville Majano MD Unavailable [email or web address] Mary Carmen Haji BARREL FINISHER Unavailable [phone] Ivet Boothe BARREL FINISHER Unavailable [phone] Karen Mendoza BARREL FINISHER Unavailable [phone] Hector Lan DO Primary Care Provider [phone] Encounter Details Date Type Department Care Team (Latest Contact Info) Description 02/05/2020 Transcribe Orders [address] [address] Radha Hunter PA-C 54 [address] [place] [address] [email or web address] Edema, unspecified type (Primary Dx); Diseases of lips Social History Tobacco Use Types Packs/Day Years [...] Pass [facility], Ct Scan - [address] [address] 10/23/2025 9:30 AM EST Office Visit [facility] Gastroenterology Clinic 10 [place] [address] Mary Lou Pires, FORM CARPENTER [address] [place] [address] [email or web address] 10/29/2025 10:30 AM EST Appointment [facility], Ct Scan [address] [address] Fredy Brooks MD [address] [place] [address] 11/05/2025 10:00 AM EST Office Visit [facility], Allergy [facility] Critical Care Medicine 10 [place] [address] Fredy Brooks MD [address] [place] [address] documented as of this encounter Results * Ferritin (02/05/2020 12:03 PM EDT) FERRITIN 31 13 - 150 ug/L [facility] Blood 02/05/2020 12:0 3 PM EDT 02/05/2020 12:27 PM EDT us January Dale [facility] LAB BLOOD BKR ORDERABLES Fin al Result [address] [address] * (ABNORMAL) Iron and iron binding capacity (02/05/2020 12:03 PM EDT) Pathologist [facility] IRON 50 30 - 160 ug/dL [facility] IRON BINDING CAPACITY 347 228 - 428 ug/dL [facility] TRANSFERRIN SATURAT. 14(L) 15 - 50 % [facility] Blood 02/05/2020 12:0 3 PM EDT 02/05/2020 12:27 PM EDT Radha [facility] LAB BLOOD BKR ORDERABLES Fin al Result [address] [address] * Vitamin B12 (02/05/2020 12:03 PM EDT) Pathologist [facility] VITAMIN B12 362 232 - 1,245 pg/mL [facility] Blood 02/05/2020 12:0 3 PM EDT 02/05/2020 12:27 PM EDT Radha [facility] LAB BLOOD BKR ORDERABLES Fin al Result Performing Organization Address City/[facility]/ZIP Co de Phone Number [address] [address] * (ABNORMAL) CBC and differential (02/05/2020 12:03 PM EDT) Pathologist [facility] WBC 8.89 4.00 - 11.00 K/uL [facility] Comment:Note Reference Range updates to all CBC and Differential results. RBC 4.48 3.72 - 5.30 M/uL [facility] HGB 13.0 11.4 - 15.9 g/dL [facility] Comment:Note updated Referen ce Ranges for all CBC and Differential results. HCT 39.8 34.2 - 46.8 % [facility] PLT 250 140 - 430 K/uL [facility] MCV 88.8 78.0 - 97.0 fL [facility] MCH 29.0 25.0 - 33.0 pg [facility] MCHC 32.7 32.0 - 36.0 g/dL [facility] RDW 13.8 11.0 - 16.0 % [facility] MPV 10.1 8.4 - 12.8 fl [facility] NRBC 0.00 0 /100 WBCs [facility] ABSOLUTE NRBC 0.00 0 K/uL [facility] DIFF METHOD Auto [facility] NEUTS 64.2 43.0 - 75.0 % [facility] LYMPHS 19.3 18.2 - 47.4 % [facility] MONOS 12.3(H) 4.00 - 11.00 % [facility] EOS 3.1 0.0 - 8.0 % [facility] BASOS 0.7 0.0 - 2.0 % [facility] Granulocytes, immature (%) 0.4 0.0 - 0.9 % [facility] ABSOLUTE NEUTS 5.70 1.80 - 7.70 K/uL [facility] ABSOLUTE LYMPHS 1.72 1.00 - 3.10 K/uL [facility] ABSOLUTE MONOS 1.09(H) 0.20 - 0.80 K/uL [facility] ABSOLUTE EOS 0.28 0.00 - 0.80 K/uL [facility] ABSOLUTE BASOS 0.06 0.00 - 0.09 K/uL [facility] Granulocytes, immature 0.04 0.00 - 0.05 K/uL [facility] Blood 02/05/2020 12:0 3 PM EDT 02/05/2020 12:27 PM EDT us January Dale [facility] LAB BLOOD BKR ORDERABLES Fin al Result [facility] 30 [place] [address] * (ABNORMAL) Comprehensive metabolic panel (02/05/2020 12:03 PM EDT) SODIUM 141 133 - 146 mmol/L [facility] POTASSIUM 3.9 3.3 - 5.1 mmol/L [facility] CHLORIDE 101 96 - 108 mmol/L [facility] CO2 30 21 - 35 mmol/L [facility] BUN 13 6 - 19 mg/dL [facility] CREATININE 1.00 0.5 - 1.5 mg/dL [facility] GLUCOSE 72 70 - 99 mg/dL [facility] ALBUMIN 4.1 3.9 - 4.8 g/dL [facility] TOTAL PROTEIN 7.2 6.5 - 8.0 g/dL [facility] CALCIUM 9.7 8.4 - 10.3 mg/dL [facility] ALKALINE PHOSPHATASE 83 39 - 117 U/L [facility] TOTAL BILIRUBIN 0.3 0.0 - 1.2 mg/dL [facility] AST 27 0 - 37 U/L [facility] ALT 15 0 - 40 U/L [facility] GLOBULIN 3.1 1 - 4.8 g/dL [facility] EGFR 57(L) >59 mL/min/1.7 3m2 [facility] Comment:If patient is black, multiply result by 1.159. Estimated glomerular filtration rate calculated using the CKD-EPI equation. ANION GAP 14 10 - 20 mmol/L [facility] Blood 02/05/2020 12:0 3 PM EDT 02/05/2020 12:27 PM EDT January Dale [facility] LAB BLOOD BKR ORDERABLES Fin al Result Performing Organization Address City/State/[facility] Co de Phone Number [facility] [address] [place] [address] documented in this encounter Visit Diagnoses Diagnosis Edema, unspecified type- Primary Diseases of lips documented in this encounter Care Teams Rn Peritoneal Dialysis Relationship Specialty Start Date End Date Hector Lan DO [email or web address] PCP - General Internal Medicine 09/07/17 Hector Lan DO Historical LMR Provider 07/25/17 Orville Majano MD [email or web address] Historical LMR Provider 07/25/17 Mary Carmen Haji NP 14 [facility] [address] [place] [address] [email or web address] Historical LMR Provider 07/25/17 2 Ivet Boothe NP 21 [place] [address] [email or web address] Historical LMR Provider 07/25/17 2 Karen Mendoza NP [address] [place] [address] Historical LMR Provider 07/25/17 2 documented as of this encounter Additional Source Comments The information contained in this document represents components of the legal health record. It is not the complete legal health record.[facility]
--- OUTSIDE RECORDS SUMMARY | 2025-08-29 03:06 | XMS_ITS | Encounter Summary ---
Author Organization [facility] Address [address] [place] [address] Phone Care Team Providers Care Linux Unix Administrator Name Role Phone Hector Lan DO Unavailable Orville Majano MD Unavailable [email or web address] Mary Carmen Haji PLATE MAKER ZINC Unavailable [phone] Ivet Boothe PLATE MAKER ZINC Unavailable [phone] Karen Mendoza PLATE MAKER ZINC Unavailable [phone] Hector Lan DO Primary Care Provider [phone] Encounter Details Date Type Department Care Team (Late st Contact Info) Description 03/20/2020 Transcribe Orders [facility] PFT Lab 30 [place] [address] Fredy Brooks MD [address] [place] [phone] [email or web address] Social History Tobacco Use Types Packs/Day Years [...] st Contact Info) Description 03/21/2025 Procedure Pass [facility], Ct Scan - [address] [address] 10/23/2025 9:30 AM EST Office Visit [facility] Gastroenterology Clinic 10 [place] [address] Mary Lou Pires, DYNAMITE RECLAIMER [address] [address] [email or web address] 10/29/2025 10:30 AM EST Appointment [facility], Ct Scan - [address] [address] Fredy Brooks MD [address] [place] [address] 11/05/2025 10:00 AM EST Office Visit [facility] 10 [place] [address] Fredy Brooks MD [address] [place] [address] documented as of this encounter Visit Diagnoses Not on filedocumented in this encounter Care Teams Linux Unix Administrator Relationship Specialty Start Date End Date Hector Lan DO PCP - General Internal Medicine 09/07/17 Hector Lan DO Historical LMR Provider 07/25/17 Orville Majano MD [email or web address] Historical LMR Provider 07/25/17 Mary Carmen Haji NP 14 [facility] [address] [place] [address] [email or web address] Historical LMR Provider 07/25/17 2 Ivet Boothe NP 21 [place] [address] [email or web address] Historical LMR Provider 07/25/17 2 Karen Mendoza NP [address] [place] [address] Historical LMR Provider 07/25/17 2 documented as of this encounter Additional Source Comments The information contained in this document represents components of the legal health record. It is not the complete legal health record.[facility]
--- OUTSIDE RECORDS SUMMARY | 2025-08-29 03:06 | XMS_ITS | Encounter Summary ---
Author Organization [facility] Address [address] [place] [address] Phone Care Team Providers Care Manufacturing Software Engineer Name Role Phone Hector Lan DO Unavailable Orville Majano MD Unavailable [email or web address] Hector Lan DO Primary Care Provider [phone] Encounter Details Date Type Department Care Team (Latest Contact Info) Description 09/28/2022 Transcribe Orders Virtual Department 30 [place] [address] Trinity Ponce PA 6 [facility] [place] [address] [place] [address] Breast screening (Primary Dx) Social History Tobacco Use Types [...] st Contact Info) Description 03/21/2025 Procedure Pass [facility], Ct Scan [facility] 30 [place] [address] 10/23/2025 9:30 AM EST Office Visit [facility] Gastroenterology Clinic 10 [place] [address] Mary Lou Pires, SYSTEMS ARCHITECT [address] [address] [email or web address] 10/29/2025 10:30 AM EST Appointment [facility], Ct Scan [address] [address] Fredy Brooks MD [address] [place] [address] 11/05/2025 10:00 AM EST Office Visit [facility] Allergy [facility] Critical [facility] Medicine 10 [facility] [place] [address] Fredy Brooks MD [address] [place] [address] documented as of this encounter Results * [...] Negative. DENSITY: There are scattered fibroglandular densities. us Trinity [facility]LEY IMG MG EXAMS Final Resul t documented in this encounter Visit Diagnoses Diagnosis Breast screening- Primary Breast screening, unspecified Breast screening Breast screening, unspecified documented in this encounter Care Teams Manufacturing Software Engineer Relationship Specialty Start Date End Date Hector Lan DO PCP - General Internal Medicine 09/07/17 Hector Lan DO Historical LMR Provider 07/25/17 Orville Majano MD [email or web address] Historical LMR Provider 07/25/17 documented as of this encounter Additional Source Comments The information contained in this document represents components of the legal health record. It is not the complete legal health record.[facility]
--- OUTSIDE RECORDS SUMMARY | 2025-08-29 03:06 | XMS_ITS | Encounter Summary ---
Author Organization [facility] Address [address] [facility] [address] [place] [address] Phone Care Team Providers Care Deputy Court Clerk Name Role Phone Hector Lan DO Unavailable Orville Majano MD Unavailable [email or web address] Mary Carmen Haji [employer] OFFICER Unavailable [phone] Ivet Boothe [employer] OFFICER Unavailable [phone] Karen Mendoza [employer] OFFICER Unavailable [phone] Hector Lan DO Primary Care Provider [phone] Reason for Referral * Outpatient Procedure - Closed Specialty Diagnoses / Procedures Referred By Contheidy t Referred To Contact Diagnoses Edema, unspecified type Dyspnea on exertion Procedures Adult Echo TTE Radha Hunter PA-C Phone: tel: fax: [email or web address] Referral ID Status Reason Start Date Expiration Date Visits Re quested Visits Authorized [id number] Closed 02/18/2020 02/17/2021 1 1 Encounter Details Date Type Department Care Team (Latest Contact Info) Description 02/18/2020 Transcribe Orders [facility] Department [address] [place] [address] Radha Hunter, APRIL [address] [place] [address] [email or web address] Edema, unspecified type (Primary Dx); Dyspnea on exertion Social History Tobacco Use [...] st Contact Info) Description 03/21/2025 Procedure Pass [facility], Ct Scan [address] [address] 10/23/2025 9:30 AM EST Office Visit [facility] [address] [place] [address] Mary Lou Pires, MARKETING REPORTING ANALYST [address] [place] [address] [email or web address] 10/29/2025 10:30 AM EST Appointment [facility] Ct Scan [address] [address] Yash Brooks MD [address] [place] [address] 11/05/2025 10:00 AM EST Office Visit [facility] Pul[facility], Allergy and Critical Care Medicine [address] [place] [address] Yash Brooks MD [address] [place] [address] documented as of this encounter Results * XR CHEST PA AND LATERAL 2 VIEWS (02/21/2020 9:08 AM EDT) Anatomical Region Laterality Modality Chest Radiographic Aniya ging 02/21/2020 9:13 AM EDT Impressions 02/21/2020 9:14 AM EDT No acute infiltrate or other specific etiology of cough apparent. POS [id number] Narrative 02/21/2020 9:14 AM EDT COMPARISON: 09/07/2018 FINDINGS: PA and lateral views reveal the lungs to be moderately well-expanded. No acute airspace infiltrate or pleural effusion present. Minimal left basilar linear atelectasis versus interval scarring demonstrated on the lateral view. Heart and pulmonary vessels within normal limits in size. Visualized bony thorax intact with post-surgical changes seen in the right shoulder. Procedure Note Yash Cheek MD - 02/21/2020 COMPARISON: 09/07/2018 FINDINGS: PA and lateral views reveal the lungs to be moderately well-expanded. Noacute airspace infiltrate or pleural effusion present. Minimal leftbasilar linear atelectasis versus interval scarring demonstrated on thelateral view. Heart and pulmonary vessels within normal limits in size.Visualized bony thorax intact with post-surgical changes seen in the rightshoulder. IMPRESSION: No acute infiltrate or other specific etiology of cough apparent. POS [id number] Radha Hunter PAAnia IMG XR CHEST Final Result * TTE COMPREHENSIVE (02/21/2020 8:50 AM EDT) Body Surface Area 1.7 m2 Height 160 cm Weight 71 kg Systolic BP 160 mmHg Diastolic BP 69 mmHg Left Atrium Dimension Anterior-Posterior 21 15 - 40 mm Aortic Valve Mean Gradient 5 mmHg Aortic Valve Time Velocity Integral 325 mm Aortic Valve Peak Velocity 159.0 cm/s Aortic Valve Peak Gradient 10 mmHg Aortic Sinus Diameter 22 mm Ascending Aorta Diameter 30 mm Inferior Vena Cava Diameter 15 0.0 - 21 mm Interventricular Septum Thickness 11 mm Left Ventricle Internal Diameter End Diastole 42 37 - 52 mm Left Ventricle Internal Diameter End Systole 26 22 - 35 mm Left Ventricular Outflow Tract Diameter 18.0 mm LVOT VTI REST 233 mm Left Ventricular Outflow Tract Velocity 1.1 m/s Left Ventricular Outflow Tract Gradient at Rest 5 mmHg Left Ventricular Posterior Wall Thickness 9 mm Ejection Fraction 66 50 - 75 Percent Mitral Valve Deceleration Time 176 ms Mitral Valve A Wave Speed 99.0 cm/s Mitral Valve E Wave Speed 57.8 cm/s Right Ventricle Basal Diameter 27.9 25 - 41 mm Tricuspid Valve Peak Velocity 2.5 m/s Raw LV EF% 62 % Right Ventricle Peak Systolic Pressure 28 mmHg Right Atrium Pressure Estimated 3 mmHg Right Ventricle to Right Atrium Pressure Gradient 25 mmHg Aortic Valve Sinus Index 1 13 19 - 27 mm Ascending Aorta Diameter 18 mm Aortic Sinus Index 13 mm Ascending Aorta Index 18 mm Left Atrial Volume 36 mL Left Atrial Volume Index 21.18 mL/m2 Anatomical Region Laterality Modality Heart Ultrasound Narrative 02/21/2020 10:00 AM EDT Normal LV size and function EF 65%. Normal diastolic function for age. Normal valve structure and function. PA pressure estimation was normal. No clear cause for edema or shortness of breath seen on the study. Compared to study from March 2019, no change. Left Ventricle The left ventricular cavity size and wall thickness are normal. Left ventricular systolic function is normal. There are no segmental left ventricular wall motion abnormalities noted. The estimated ejection fraction is 66% (Normal 50-75%). The left ventricular ejection fraction was measured by the single dimension method. Left ventricular diastolic function appears within normal limits for age. There is no evidence of left ventricular thrombus. Right Ventricle The right ventricular size is normal. The right ventricular systolic function is normal. Left Atrium The left atrium is normal in size. The left atrial anterior-posterior dimension measures 21 mm (normal 15-40 mm). The LA volume is 36 mL. The LA volume index is 21.18 mL/m2 (normal indexed value is 16-34 mL/m2). The pulmonary venous flow profiles are normal. Pulmonary vein connections were not well seen. Right Atrium The right atrium is normal in size. The IVC is normal in size (2.1cm or less). The IVC measures 15 mm (normal <=21 mm). The IVC demonstrates normal collapse with inspiration which is consistent with normal RA pressure. Mitral Valve The mitral valve appears normal. The e/A ratio is 0.6. The Med E' Davis is 6.4 cm/s and the Lat E' Davis is 9.0 cm/s. The E/E' AVG is 7.5. There is no evidence of mitral stenosis. There is no significant mitral regurgitation detected by spectral and color Doppler. Tricuspid Valve The tricuspid valve appears normal. There is no evidence of tricuspid stenosis. There is evidence of trace tricuspid regurgitation by color and spectral Doppler. Normal pulmonary pressure. The RV systolic pressure was estimated from the peak TV regurgitant velocity. The estimated RV systolic pressure is 28 mmHg assuming a right atrial pressure of 3 mmHg. Aortic Valve The aortic valve appears normal. The aortic valve is tricuspid. There is no evidence of valvular aortic stenosis. The peak aortic valve gradient is 10 mmHg. There is no evidence of aortic regurgitation by color and spectral Doppler. The visualized portions of the thoracic aorta appear normal. Pulmonic Valve Pulmonary valve was not well visualized. The pulmonary valve appears normal. There is no evidence of pulmonic stenosis. There is no evidence of pulmonary regurgitation by color and spectral Doppler. Pericardium There is no evidence of pericardial effusion. There no evidence of a pleural effusion. Interatrial Septum The interatrial septum appears normal. Interventricular Septum Interventricular septal motion appears normal. General Findings The image quality was good (2). Technique(s) used in the evaluation: Color flow Doppler and Spectral Doppler. The predominant rhythm during the study was sinus. Comparison Findings Compared to a prior TTE from 03/27/2019 January Dale CHEN CV ECHO ORDERABLES Final Res ult documented in this encounter Visit Diagnoses Diagnosis Edema, unspecified type- Primary Dyspnea on exertion Other dyspnea and respiratory abnormality Edema, unspecified type Dyspnea on exertion Other dyspnea and respiratory abnormality Edema, unspecified type Dyspnea on exertion Other dyspnea and respiratory abnormality documented in this encounter Care Teams Deputy Court Clerk Relationship Specialty Start Date End Date Hector Lan DO PCP - General Internal Medicine 09/07/17 Hector Lan DO Historical LMR Provider 07/25/17 Orville Majano MD [email or web address] Historical LMR Provider 07/25/17 Mary Carmen Haji NP [address] [facility] [address] [place] [address] [email or web address] Historical LMR Provider 07/25/17 2 Ivet Boothe NP [address] [place] [address] [email or web address] Historical LMR Provider 07/25/17 2 Karen Mendoza NP [address] [place] [address] Historical LMR Provider 07/25/17 2 documented as of this encounter Additional Source Comments The information contained in this document represents components of the legal health record. It is not the complete legal health record.[facility]
--- OUTSIDE RECORDS SUMMARY | 2025-08-29 03:06 | XMS_ITS | Encounter Summary ---
Author Organization [facility] Address [address] [place] [address] Phone Care Team Providers Care Office Chair Assembler Name Role Phone Hector Lan DO Unavailable Orville Majano MD Unavailable [email or web address] Hector Lan DO Primary Care Provider [phone] Encounter Details Date Type Department Care Team (Latest Contact Info) Description 07/14/2022 Transcribe Orders Virtual Department [address] [place] [address] Trinity Ponce PA 6 [facility] [place] [address] [place] [address] Edema, unspecified type Social History Tobacco Use Types [...] st Contact Info) Description 03/21/2025 Procedure Pass [facility], Ct Scan - [facility] [address] [place] [address] 10/23/2025 9:30 AM EST Office Visit [facility] 10 [place] [address] Mary Lou Pires, APPLIED BEHAVIOR SCIENCE SPECIALIST [address] [address] [email or web address] 10/29/2025 10:30 AM EST Appointment [facility], Ct Scan - [address] [address] Fredy Brooks MD [address] [place] [address] 11/05/2025 10:00 AM EST Office Visit [facility] Pulmonary, Allergy and Critical Care Medicine 10 [place] [address] Fredy Brooks MD [address] [place] [address] documented as of this encounter Visit Diagnoses Diagnosis Edema, unspecified type documented in this encounter Care Teams Office Chair Assembler Relationship Specialty Start Date End Date Hector Lan DO PCP - General Internal Medicine 09/07/17 Hector Lan DO Historical LMR Provider 07/25/17 Orville Majano MD [email or web address] Historical LMR Provider 07/25/17 documented as of this encounter Additional Source Comments The information contained in this document represents components of the legal health record. It is not the complete legal health record.[facility]
--- OUTSIDE RECORDS SUMMARY | 2025-08-29 03:06 | XMS_ITS | Encounter Summary ---
Author Organization [facility] Address [address] [place] [address] Phone Care Team Providers Care Industry Analyst Name Role Phone Hector Lan DO Unavailable Orville Majano MD Unavailable [email or web address] Hector Lan DO Primary Care Provider [phone] Encounter Details Date Type Department Care Team (Late st Contact Info) Description 03/16/2022 Procedure Pass [facility], [address] [address] Social History Tobacco Use Types Packs/Day Years [...] - Inhaled Oxygen Concentration - - Weight 76.7 kg (169 lb) 03/17/2022 1:17 PM EDT Height 160 cm (5' 3 ) 03/17/2022 1:17 PM EDT Body Mass Index 29.94 03/17/2022 1:17 PM EDT documented in this encounter Plan of Treatment Upcoming Encounters Date Type Department Care Team (Late st Contact Info) Description 03/21/2025 Procedure Pass [facility], Ct Scan - [address] [address] 10/23/2025 9:30 AM EST Office Visit [facility]enterology Clinic 10 [place] [address] Mary Lou Pires, BUS AND TROLLEY DISPATCHER [address] [address] [email or web address] 10/29/2025 10:30 AM EST Appointment [facility], Ct Scan [address] [address] Fredy Brooks MD [address] [place] [address] 11/05/2025 10:00 AM EST Office Visit [facility] Pulmonary, Allergy and Critical Care Medicine 10 [facility] [place] [address] Fredy Brooks MD [address] [place] [address] documented as of this encounter Visit Diagnoses Not on filedocumented in this encounter Care Teams Industry Analyst Relationship Specialty Start Date End Date Hector Lan DO PCP - General Internal Medicine 09/07/17 Hector Lan DO Historical LMR Provider 07/25/17 Orville Majano MD [email or web address] Historical LMR Provider 07/25/17 documented as of this encounter Additional Source Comments The information contained in this document represents components of the legal health record. It is not the complete legal health record.[facility]
--- OUTSIDE RECORDS SUMMARY | 2025-08-29 03:06 | XMS_ITS | Encounter Summary ---
Author Organization [facility] Address [address] [facility] [address] [place] [address] Phone Care Team Providers Care Microfabrication Engineer Manager Name Role Phone Hector Lan DO Unavailable Orville Majano MD Unavailable [email or web address] armen Haji CYCLE ANALYST Unavailable [phone] Ivet Boothe CYCLE ANALYST Unavailable [phone] Karen Mendoza CYCLE ANALYST Unavailable [phone] Hector Lan DO Primary Care Provider [phone] Encounter Details Date Type Department Care Team (Latest Contact Info) Description 02/18/2020 Transcribe Orders [facility] [address] [place] [address] Radha Hunter PA-C [address] [place] [address] [email or web address] Edema, unspecified type (Primary Dx) Social History Tobacco [...] st Contact Info) Description 03/21/2025 Procedure Pass [facility], Ct Scan - [address] [address] 10/23/2025 9:30 AM EST Office Visit [facility] 10 [place] [address] Mary Lou Pires, TRANSPORTATION WORKER [address] [address] [email or web address] 10/29/2025 10:30 AM EST Appointment [facility], Ct Scan - [address] [address] Fredy Brooks MD [address] [place] [address] 11/05/2025 10:00 AM EST Office Visit [facility] Pulmonary, Allergy and Critical Care Medicine 10 [facility] [place] [address] Fredy Brooks MD [address] [place] [address] documented as of this encounter Results * NT-proBNP (02/18/2020 11:53 AM EDT) NT-PROBNP 70 0 - 125 pg/mL [facility] Blood 02/18/2020 11:5 3 AM EDT 02/18/2020 11:55 AM EDT us January Dale CHEN LAB BLOOD BKR ORDERABLES Fin al Result [address] [address] * (ABNORMAL) Comprehensive metabolic panel (02/18/2020 11:53 AM EDT) SODIUM 137 133 - 146 mmol/L [facility] POTASSIUM 4.3 3.3 - 5.1 mmol/L [facility] CHLORIDE 99 96 - 108 mmol/L [facility] CO2 27 21 - 35 mmol/L [facility] BUN 14 6 - 19 mg/dL [facility] CREATININE 1.20 0.5 - 1.5 mg/dL [facility] GLUCOSE 105(H) 70 - 99 mg/dL [facility] ALBUMIN 4.2 3.9 - 4.8 g/dL [facility] TOTAL PROTEIN 7.2 6.5 - 8.0 g/dL [facility] CALCIUM 9.8 8.4 - 10.3 mg/dL [facility] ALKALINE PHOSPHATASE 75 39 - 117 U/L [facility] TOTAL BILIRUBIN 0.3 0.0 - 1.2 mg/dL [facility] AST 29 0 - 37 U/L [facility] ALT 15 0 - 40 U/L [facility] GLOBULIN 3.0 1 - 4.8 g/dL [facility] EGFR 46(L) >59 mL/min/1.7 3m2 [facility] Comment:If patient is black, multiply result by 1.159. Estimated glomerular filtration rate calculated using the CKD-EPI equation. ANION GAP 15 10 - 20 mmol/L [facility] Blood 02/18/2020 11:5 3 AM EDT 02/18/2020 11:55 AM EDT January Dale CHEN LAB BLOOD BKR ORDERABLES Fin al Result [facility] [address] [place] [address] * CBC (02/18/2020 11:53 AM EDT) WBC 5.74 4.00 - 11.00 K/uL [facility] Comment:Note Reference Range updates to all CBC and Differential results. RBC 4.41 3.72 - 5.30 M/uL [facility] HGB 12.5 11.4 - 15.9 g/dL [facility] Comment:Note updated Referen ce Ranges for all CBC and Differential results. HCT 38.4 34.2 - 46.8 % [facility] PLT 278 140 - 430 K/uL [facility] MCV 87.1 78.0 - 97.0 fL [facility] MCH 28.3 25.0 - 33.0 pg [facility] MCHC 32.6 32.0 - 36.0 g/dL [facility] RDW 13.4 11.0 - 16.0 % [facility] MPV 9.8 8.4 - 12.8 fl [facility] NRBC 0.00 0 /100 WBCs [facility] ABSOLUTE NRBC 0.00 0 K/uL [facility] Blood 02/18/2020 11:5 3 AM EDT 02/18/2020 11:55 AM EDT January Dale CHEN LAB BLOOD BKR ORDERABLES Fin al Result Performing Organization Address City/State/[facility] Co de Phone Number [address] [address] documented in this encounter Visit Diagnoses Diagnosis Edema, unspecified type- Primary documented in this encounter Care Teams Microfabrication Engineer Manager Relationship Specialty Start Date End Date Hector Lan DO PCP - General Internal Medicine 09/07/17 Hector Lan DO Historical LMR Provider 07/25/17 Orville Majano MD [email or web address] Historical LMR Provider 07/25/17 Mary Carmen Haji NP [address] [place] [address] [place] [address] Historical LMR Provider 07/25/17 2 Ivet Boothe NP [address] [place] [address] [email or web address] Historical LMR Provider 07/25/17 2 Karen Mendoza NP [address] [place] [address] Historical LMR Provider 07/25/17 2 documented as of this encounter Additional Source Comments The information contained in this document represents components of the legal health record. It is not the complete legal health record.[facility]
--- OUTSIDE RECORDS SUMMARY | 2025-08-29 03:06 | XMS_ITS | Encounter Summary ---
Author Organization [facility] Address [address] [place] [address] Phone Care Team Providers Care Clinical Product Specialist Name Role Phone Hector Lan DO Unavailable Orville Majano MD Unavailable [email or web address] Hector Lan DO Primary Care Provider [phone] Reason for Referral * Outpatient Procedure - Closed Specialty Diagnoses / Procedures Referred By Alma silva Referred To Contact Radiology Diagnoses Atherosclerosis of [place] coronary artery without angina pectoris, unspecified whether [place] or transplanted heart Procedures Adult Echo TTE Trinity Ponce PA [address] [place] [address] [place] [address] Phone: tel: fax: Referral ID Status Reason Start Date Expiration Date Visits Re quested Visits Authorized [id number] Closed 09/28/2022 09/28/2023 1 1 Encounter Details Date Type Department Care Team (Latest Contact Info) Description 09/28/2022 Transcribe Orders Virtual Department [address] [place] [address] Trinity Ponce PA [address] [place] [address] [place] [address] Atherosclerosis of [place]ogami[place] coronary artery without angina pectoris, unspecified whether [place] or transplanted heart (Primary Dx) Social History Tobacco Use Types [...] st Contact Info) Description 03/21/2025 Procedure Pass [facility], Ct Scan [address] [address] 10/23/2025 9:30 AM EST Office Visit [facility] [address] [place] [address] Mary Lou Pires, SATHISH [address] [place] [address] [email or web address] 10/29/2025 10:30 AM EST Appointment [facility], Ar Scan [address] [address] Fredy Brooks MD [address] [place] [address] 11/05/2025 10:00 AM EST Office Visit [facility], All[facility] Critical Care Medicine [address] [place] [address] Fredy Brooks MD [address] [place] [address] documented as of this encounter Results * TTE COMPREHENSIVE (08/03/2023 10:00 AM EDT) Body Surface Area 1.75 m2 Height 160 cm Weight 72 kg Systolic BP 118 mmHg Diastolic BP 88 mmHg Left Atrium Dimension Anterior-Posterior 25 15 - 40 mm Aortic Valve Mean Gradient 8 mmHg Aortic Valve Time Velocity Integral 429 mm Aortic Valve Peak Velocity 198.0 cm/s Aortic Valve Peak Gradient 16 mmHg Aortic Sinus Diameter 28 mm Ascending Aorta Diameter 30 mm Inferior Vena Cava Diameter 9 0.0 - 21 mm Interventricular Septum Thickness 10 mm Left Ventricle Internal Diameter End Diastole 45 37 - 52 mm Left Ventricle Internal Diameter End Systole 32 22 - 35 mm Left Ventricular Outflow Tract Diameter 19.0 mm LVOT VTI REST 252 mm Left Ventricular Outflow Tract Velocity 0.9 m/s Left Ventricular Outflow Tract Gradient at Rest 3 mmHg Left Ventricular Posterior Wall Thickness 9 mm Ejection Fraction 60 50 - 75 Percent Mitral Valve A Wave Speed 117.0 cm/s Mitral Valve E Wave Speed 88.6 cm/s Right Ventricle Basal Diameter 34.8 25 - 41 mm Tricuspid Valve Peak Velocity 3.1 m/s Raw LV EF% 49 % Right Ventricle to Right Atrium Pressure Gradient 38 mmHg Aortic Valve Sinus Index 1 16 19 - 27 mm Ascending Aorta Diameter 17 mm Ascending Aorta Index 17 mm Aortic Sinus Index 16 mm Right Ventricle Peak Systolic Pressure 41 mmHg Left Atrial Volume 38 mL Left Atrial Volume Index 21.71 mL/m2 Right Atrium Pressure Estimated 3 mmHg Anatomical Region Laterality Modality Heart Ultrasound Narrative 08/03/2023 10:39 AM EDT Patient was imaged during normal sinus rhythm. The estimated ejection fraction 65% without regional wall motion abnormality there is no evidence of aortic stenosis the peak gradient is 16 the mean gradient is 8 mercury. There is trace mitral regurgitation the PA pressure is mildly elevated at 41 mmHg there is no pericardial effusion and when compared to a prior echocardiogram the degree of aortic stenosis may have increased slightly and the PA pressure is higher Left Ventricle E/A 0.8, Lat E emeterio 8.70cm/s, Med E emeterio 7.62cm/s, E/E avg 10.9 The left ventricular cavity size and wall thickness are normal. Left ventricular systolic function is normal. There are no segmental left ventricular wall motion abnormalities noted. The estimated ejection fraction is 60% (Normal 50-75%). The left ventricular ejection fraction was measured by visual estimate. Left ventricular diastolic function appears within normal limits for age. Right Ventricle The right ventricular size is normal. TAPSE 2.1cm, RV S emeterio 11.1cm/s No evidence of right ventricular hypertrophy. The right ventricular systolic function is normal. Left Atrium The left atrium is normal in size. The left atrial anterior-posterior dimension measures 25 mm (normal 15-40 mm). The LA volume index is 21.7 mL/m2 (normal indexed value is 16-34 mL/m2). Right Atrium The right atrium is normal in size. The IVC diameter is 9 mm. Mitral Valve There is no evidence of mitral stenosis. There is mild increased thickening of both mitral valve leaflets. There is trace mitral regurgitation detected by spectral and color Doppler. Tricuspid Valve There is no evidence of tricuspid stenosis. There is evidence of mild tricuspid regurgitation by color and spectral Doppler. The RV systolic pressure was estimated from the peak TV regurgitant velocity. The estimated RV systolic pressure is 41 mmHg assuming a right atrial pressure of 3 mmHg. Aortic Valve The aortic valve appears abnormal. The aortic valve is tricuspid. There is moderate thickening of multiple aortic leaflets. There is no evidence of valvular aortic stenosis. The peak aortic valve gradient is 16 mmHg. The mean aortic gradient is 8 mmHg. There is no evidence of aortic regurgitation by color and spectral Doppler. The visualized portions of the thoracic aorta appear normal. Pulmonic Valve Pulmonary valve was not well visualized. Pericardium There is no evidence of pericardial effusion. Interatrial Septum The interatrial septum appears normal. Interventricular Septum There is no evidence of a ventricular septal defect. General Findings The image quality was good (2). Technique(s) used in the evaluation: Color flow Doppler and Spectral Doppler. The predominant rhythm during the study was sinus. Comparison Findings Compared to a prior report from 02/21/2020, Trinity MOBLEY CV ECHO ORDERABLES Final Re sult documented in this encounter Visit Diagnoses Diagnosis Atherosclerosis of [place] coronary artery without angina pectoris, unspecified whether [place] or transplanted heart- Primary Atherosclerosis of [place] coronary artery without angina pectoris, unspecified whether [place] or transplanted heart documented in this encounter Care Teams Clinical Product Specialist Relationship Specialty Start Date End Date Hector Lan DO PCP - General Internal Medicine 09/07/17 Hector Lan DO [email or web address] Historical LMR Provider 07/25/17 Orville Majano MD [email or web address] Historical LMR Provider 07/25/17 documented as of this encounter Additional Source Comments The information contained in this document represents components of the legal health record. It is not the complete legal health record.[facility]
--- OUTSIDE RECORDS SUMMARY | 2025-08-29 03:06 | XMS_ITS | Encounter Summary ---
Author Organization [facility] Address [address] [place] [address] Phone Care Team Providers Care Marketing And Outreach Coordinator Name Role Phone Hector Lan DO Unavailable Orville Majano MD Unavailable [email or web address] Hector Lan DO Primary Care Provider [phone] Encounter Details Date Type Department Care Team (Late st Contact Info) Description 09/28/2022 Procedure Pass [facility], Mammography[address] [address] Social History Tobacco Use Types Packs/Day Years [...] (Late st Contact Info) Description 03/21/2025 Procedure [facility], Ct Scan - [address] [address] 10/23/2025 9:30 AM EST Office Visit [facility] 10 [place] [address] Mary Lou Pires, WEIGHT YARDAGE CHECKER [address] [address] [email or web address] 10/29/2025 10:30 AM EST Appointment [facility], Ct Scan - [address] [address] Fredy Brooks MD [address] [place] [address] 11/05/2025 10:00 AM EST Office Visit [facility] [address] [place] [address] Fredy Brooks MD [address] [place] [address] documented as of this encounter Visit Diagnoses Not on filedocumented in this encounter Care Teams Marketing And Outreach Coordinator Relationship Specialty Start Date End Date Hector Lan DO PCP - General Internal Medicine 09/07/17 Hector Lan DO Historical LMR Provider 07/25/17 Orville Majano MD [email or web address] Historical LMR Provider 07/25/17 documented as of this encounter Additional Source Comments The information contained in this document represents components of the legal health record. It is not the complete legal health record.[facility]
--- OUTSIDE RECORDS SUMMARY | 2025-08-29 03:06 | XMS_ITS | Encounter Summary ---
Author Organization [facility] Address [address] [facility] [address] [place] [address] Phone Care Team Providers Care Gauge Inspector Name Role Phone Hector Lan DO Unavailable Orville Majano MD Unavailable [email or web address] Mary Carmen Haji CRANBERRY BOG SUPERVISOR Unavailable [phone] Ivet Boothe CRANBERRY BOG SUPERVISOR Unavailable [phone] Karen Mendoza CRANBERRY BOG SUPERVISOR Unavailable [phone] Hector Lan DO Primary Care Provider [phone] Encounter Details Date Type Department Care Team (Latest Contact Info) Description 07/04/2018 Transcribe Orders [facility] Phleb [address] [address] Hector Martinez MD [address] [place] [address] Psoriasis vulgaris (Primary Dx); Drug therapy Social History Tobacco Use Types Packs/Day Years [...] st Contact Info) Description 03/21/2025 Procedure Pass [facility], Ct Scan [address] [address] 10/23/2025 9:30 AM EST Office Visit [facility] 10 [place] [address] Mary Lou Pires, PATHOLOGY COLLECTOR [address] [address] [email or web address] 10/29/2025 10:30 AM EST Appointment [facility], Ct Scan [address] [address] Fredy Brooks MD [address] [place] [address] 11/05/2025 10:00 AM EST Office Visit [facility] 10 [facility] [place] [address] Fredy Brooks MD [address] [place] [address] documented as of this encounter Results * Quantiferon-TB Gold (07/04/2018 11:39 AM EDT) [facility] QuantiFERON-TB Gold Negative Negative [facility] Comment: (NOTE) No interferon-gamma response to M. [...] DM et. al. Clin. Infect. Dis. 2017;64(2):111-115]. TB1 Ag minus Nil 0.00 IU/mL [facility] DR TB2 Ag minus Nil 0.00 IU/mL [facility] Mitogen minus Nil 8.07 IU/mL [facility]PATH [facility] DR Nil Result 0.02 IU/mL [facility] Blood 07/04/2018 11:3 9 AM EDT 07/04/2018 1:24 PM EDT us Hector Martinez MD LAB BLOOD ORDERABLES Fin al Result [facility] [address] [place] [address] * Aspartate aminotransferase (AST) (07/04/2018 11:39 AM EDT) AST 20 0 - 37 U/L [facility] Blood 07/04/2018 11:3 9 AM EDT 07/04/2018 1:24 PM EDT us Hector Martinez MD LAB BLOOD BKR ORDERABLES Final Result Performing Organization Address [facility] Co de Phone Number [address] [address] * Alanine aminotransferase (ALT) (07/04/2018 11:39 AM EDT) ALT 13 0 - 40 U/L [facility] Blood 07/04/2018 11:3 9 AM EDT 07/04/2018 1:24 PM EDT us Hector Martinez MD LAB BLOOD BKR ORDERABLES Final Result Performing Organization Address [facility] Co de Phone Number [address] [address] documented in this encounter Visit Diagnoses Diagnosis Psoriasis vulgaris- Primary Other psoriasis Drug therapy Encounter for other specified aftercare documented in this encounter Care Teams Gauge Inspector Relationship Specialty Start Date End Date Hector Lan DO [email or web address] PCP - General Internal Medicine 09/07/17 Hector Lan DO [email or web address] Historical LMR Provider 07/25/17 Orville Majano MD [email or web address] Historical LMR Provider 07/25/17 Mary Carmen Haji NP [address] [place] [address] [email or web address] Historical LMR Provider 07/25/17 2 Ivet Boothe NP [address] [place] [address] [email or web address] Historical LMR Provider 07/25/17 2 Karen Mendoza NP [address] [place] [address] Historical LMR Provider 07/25/17 2 documented as of this encounter Additional Source Comments The information contained in this document represents components of the legal health record. It is not the complete legal health record.[facility]
--- OUTSIDE RECORDS SUMMARY | 2025-08-29 03:06 | XMS_ITS | Encounter Summary ---
Author Organization [facility] Address [facility] Outcome Referrals [facility] [address] [place] [address] Phone Care Team Providers Care Band Director Name Role Phone Hector Lan DO Unavailable Orville Majano MD Unavailable [email or web address] Mary Carmen Haji LOCKSTITCH HEMMER Unavailable [phone] Ivet Boothe LOCKSTITCH HEMMER Unavailable [phone] Karen Mendoza LOCKSTITCH HEMMER Unavailable [phone] Hector Lan DO Primary Care Provider [phone] Encounter Details Date Type Department Care Team (Late Contact Info) Description 04/24/2020 Procedure Pass [facility], Ct Scan - [address] [address] Social History Tobacco Use Types Packs/Day Years [...] Pass [facility], Ct Scan - [address] [address] 10/23/2025 9:30 AM EST Office Visit [facility] Clinic 10 [place] [address] Mary Lou Pires, LAWN SERVICE MANAGER [address] [place] [address] [email or web address] 10/29/2025 10:30 AM EST Appointment [facility], Ct Scan - [address] [address] Fredy Brooks MD [address] [place] [address] 11/05/2025 10:00 AM EST Office Visit [facility] 10 [place] [address] Fredy Brooks MD [address] [place] [address] documented as of this encounter Visit Diagnoses Not on filedocumented in this encounter Care Teams Band Director Relationship Specialty Start Date End Date Hector Lan DO PCP - General Internal Medicine 09/07/17 Hector Lan DO Historical LMR Provider 07/25/17 Orville Majano MD [email or web address] Historical LMR Provider 07/25/17 Mary Carmen Haji, JUAN DANIEL [address] [place] [address] [address] [place] [address] [email or web address] Historical LMR Provider 07/25/17 2 Ivet Boothe NP [address] [place] [address] [email or web address] Historical LMR Provider 07/25/17 2 Karen Mendoza NP [address] [place] [address] Historical LMR Provider 07/25/17 2 documented as of this encounter Additional Source Comments The information contained in this document represents components of the legal health record. It is not the complete legal health record.[facility]
--- OUTSIDE RECORDS SUMMARY | 2025-08-29 03:06 | XMS_ITS | Encounter Summary ---
Author Organization [facility] Address [address] [place] [address] Phone Care Team Providers Care Photographic Equipment Inspector Name Role Phone Hector Lan DO Unavailable Orville Majano MD Unavailable [email or web address] Hector Lan DO Primary Care Provider [phone] Encounter Details Date Type Department Care Team (Late st Contact Info) Description 08/30/[address] [address] Social History Tobacco Use Types Packs/Day Years [...] (Late st Contact Info) Description 03/21/[address] [address] 10/23/2025 9:30 AM EST Office Visit [facility] 10 [place] [address] Mary Lou Pires, CUSTODIAL WORKER [address] [address] [email or web address] 10/29/2025 10:30 AM EST Appointment [facility], Ct Scan - [address] [address] Fredy Brooks MD [address] [place] [address] 11/05/2025 10:00 AM EST Office Visit [facility] 10 [place] [address] Fredy Brooks MD [address] [place] [address] documented as of this encounter Visit Diagnoses Not on filedocumented in this encounter Care Teams Photographic Equipment Inspector Relationship Specialty Start Date End Date Hector Lan DO PCP - General Internal Medicine 09/07/17 Hector Lan DO Historical LMR Provider 07/25/17 Orville Majano MD [email or web address] Historical LMR Provider 07/25/17 documented as of this encounter Additional Source Comments The information contained in this document represents components of the legal health record. It is not the complete legal health record.[facility]
== END 2025-08-28 14:38 | disposition home or self-care (01) ==
LOC: HO.MANLDS 14:37
PROVIDERS: Visit Provider Physician Assistant
DX: L40.50 Arthropathic psoriasis, unspecified (principal)
CPT/HCPCS: 36415; 85025